=== PATIENT | male | born 1955 | race Caucasian/White ===

== ENCOUNTER 2024-10-31 16:24 | Inpatient (IN) | payer OTHER ==
[~2024-10-31] VITALS: Ht 175.3 cm; Wt 65.0 kg
--- NOTE | 2024-10-31 17:04 | ED.PDOC ---
History of Present Illness HPI Comments HPI: Initial Vitals: Temp : 98.4F BP: 153/42 HR: 71 RR: 18 O2 Sat.: 98% Past Medical History: HTN, Anemia, Primary Myelofibrosis Past Surgical History: Bone Marrow Biopsy Social History: Denies smoking, ETOH, or drug use. Medications: Iron Supplement Allergies: NKDA HPI: Poor Historian. 69-year-old male presents to emergency department for evaluation of low hemoglobin levels obtained yesterday below seven. Patient had multiple blood transfusions in the past. Patient was recently diagnosed with primary myelofibrosis. Patient takes daily iron supplements. Patient has been on iron infusion for awhile and has stopped. Patient underwent multiple procedures including bone marrow biopsy and upper and lower endoscopies to rule out any bleed. Patient consented for blood transfusion. REVIEW OF SYSTEMS: CONSTITUTIONAL: Denies acute: fever, diaphoresis, chills HEAD: Denies acute: headache, photophobia Eyes: Denies acute: Double vision, vision loss, eye pain, eye discharge. EARS: Denies acute: tinnitus, hearing loss, ear discharge, ear pain, THROAT: Denies acute: sore throat, swelling, difficulty swallowing , pain with swallowing, change in voice. NECK: Denies acute: neck pain, neck swelling, stiff neck. HEART: Denies acute : chest pain, palpitations, LUNGS: Denies acute: SOB, wheezing, cough, hemoptysis ABDOMEN: Denies acute: abdominal pain, Nausea, Vomiting, diarrhea, hematemesis, hematochezia SKIN: Denies acute: rash, redness, lesions, itchiness. EXTREMITIES: Denies acute: calf pain, numbness, tingling, weakness, denies pain in extremity. Denies acute: Low back pain. Neuro: Denies acute: focal neurological deficit, motor or sensory focal neurological deficit, tremors, seizure like activity, confusion, dizziness, change in mental status, loss of bowel or bladder function, cauda equina like symptoms. : Denies acute: dysuria, hematuria, flank pain, increase in urinary frequency. PSYCH: Denies acute: hallucination, suicidal ideation, homicidal ideation. PHYSICAL EXAM: General: no acute distress, awake and alert. Head: normocephalic, atraumatic. Neck: supple, trachea is midline, no swelling. Throat: Normal phonation. Eyes:, no erythema, no purulent discharge, no proptosis, no icterus. Heart: regular rate, regular rhythm, no significant murmur appreciated. Lungs: no apparent respiratory distress, Able to speak in full sentences. No wheezing, no rhonchi, no crackles. No stridors Clear to auscultation bilaterally. Abdomen: non tender to palpation, non distended, soft, no guarding, no rebound, + bowel sounds. Neuro: Awake, Alert, oriented to name, self, situation, follows commands GCS=15. Speech is normal. Skin: no petechia, no purpura, no cyanosis, noted-pale, not jaundice. Lower extremities: --no - Pitting edema no deformity, no focal swelling, no calf TTP. Makes eye contact. moves all four extremities. Face: no apparent facial droop. Chief Complaint: Abnormal LAB's Time Seen by MD: 16:52 Reviewed Notes: Medications, Allergies Allergies: Coded Allergies: NO KNOWN ALLERGIES (Unverified , 10/31/24) Information Source: Patient Mode of Arrival: Wheelchair Was a procedure done? Was a procedure done?: No X-Ray, Labs, Meds, VS Vital Signs Date Time Temp Pulse Resp B/P (MAP) Pulse Ox O2 Delivery O2 Flow Rate FiO2 10/31/24 16:44 98.4 71 18 153/42 (79) 98 Lab Test 10/31/24 17:52 10/31/24 16:45 Range/Units Sodium Level 144 136-145 mmol/L Potassium Level 4.0 3.5-5.1 mmol/L Chloride Level 111 H 98-107 mmol/L Carbon Dioxide Level 27 20-31 mmol/L Anion Gap 6 5-15 Blood Urea Nitrogen 22 9-23 mg/dL Creatinine 1.22 0.700-1.30 mg/dL Glomerular Filtration Rate Calc 64 >90 mL/min BUN/Creatinine Ratio 18.0 10.0-20.0 Serum Glucose 110 H 74-106 mg/dL Calcium Level 9.7 8.7-10.4 mg/dL Total Bilirubin 0.9 0.2-1.0 mg/dL Aspartate Amino Transferase (AST) 17 13-40 U/L Alanine Aminotransferase (ALT) 12 7-40 U/L Alkaline Phosphatase 187 H 46-116 U/L Troponin I High Sensitivity 4 4 </=54 ng/L Total Protein 6.2 5.7-8.2 g/dL Albumin 3.9 3.2-4.8 g/dL White Blood Count 3.8 L 4.4-10.8 10^3/uL Red Blood Count 2.39 L 4.5-5.90 10^6/uL Hemoglobin 6.7 *L 13.5-17.5 g/dL Hematocrit 19.6 L 41.0-53.0 % Mean Corpuscular Volume 82.1 80.0-100.0 fL Mean Corpuscular Hemoglobin 28.0 28.0-32.0 pg Mean Corpuscular Hemoglobin Concent 34.0 32.0-36.0 g/dL Red Cell Distribution Width 21.0 H 11.8-14.3 % Platelet Count 101 L 140-450 10^3/uL Mean Platelet Volume 8.2 6.9-10.8 fL Neutrophils (%) (Auto) 37.0-80.0 % Lymphocytes (%) (Auto) 10.0-50.0 % Monocytes (%) (Auto) 0.0-12.0 % Basophils (%) (Auto) 0.0-2.0 % Neutrophils # (Auto) 1.6-8.6 10 ^3/uL Lymphocytes # (Auto) 0.4-5.4 10 ^3/uL Monocytes # (Auto) 0-1.3 10 ^3/uL Differential Total Cells Counted 100.0 100 Neutrophils % (Manual) 56 37.0-80.0 Band Neutrophils % (Manual) 0 Lymphocytes % (Manual) 32 10.0-50.0 Monocytes % (Manual) 10 0-12 Eosinophils % (Manual) 0 0-7 Basophils % (Manual) 0 0.0-2.0 Metamyelocytes % (manual) 0 Myelocytes % (Manual) 1 Promyelocytes % (Manual) 0 Blast Cells % (Manual) 0 Nucleated Red Blood Cells 2.0 % Reactive Lymphocytes 1 Platelet Estimate Decreased Anisocytosis (manual) Slight Lactic Acid Level 1.6 0.4-2.0 mmol/L B-Type Natriuretic Peptide 108.80 0-100 pg/mL Time of 1ST Reevaluation: 17:52 Reevaluation 1ST: Unchanged Patient Education/Counseling: Diagnosis, Treatment Family Education/Counseling: No Family Present Departure 1 Departure Time of Disposition: 18:11 Impression: Primary Impression: Symptomatic anemia Additional Impression: Left against medical advice Disposition: 07 LEFT AGAINST MEDICAL ADVICE Condition: Critical Discharged With: Self, Spouse Critical Care Note Critical Care Time?: No I personally scribed for GARY MCKINLEY DO ([email or web address]) on 10/31/24 at 17:04. Electronically submitted by Raimundo Zaldivar ([email or web address]). GARY MCKINLEY DO Oct 31, 2024 17:04
[2024-10-31 17:23] LABS: Hematocrit 19.6 % (41.0-53.0); Mean Corpuscular Volume 82.1 fL (80.0-100.0); Platelet Count (auto) 101 10^3/uL (140-450); Red Blood Cells 2.39 10^6/uL (4.5-5.90); White Blood Cell 3.8 10^3/uL (4.4-10.8)
[2024-10-31 18:08] LABS: Hemoglobin 6.7 g/dL (13.5-17.5)
[2024-10-31 18:09] LABS: Band Neutrophils % (manual) 0; Basophils % (manual) 0 (0.0-2.0); Blast Cells 0; Eosinophils % (manual) 0 (0-7); Metamyelocytes % 0; Promyelocytes % 0
[2024-10-31 18:52] LABS: Lymphocytes % (manual) 32 (10.0-50.0); Monocytes % (manual) 10 (0-12); Myelocytes % 1; Reactive Lymphocytes 1
[2024-10-31 18:53] LABS: Anisocytosis Slight; Platelet Estimate Decreased
[2024-10-31 18:56] LABS: Alanine Aminotransferase 12 U/L (7-40); Albumin 3.9 g/dL (3.2-4.8); Anion Gap 6 (5-15); Aspartate Aminotransferase 17 U/L (13-40); Bilirubin, Total 0.9 mg/dL (0.2-1.0); Blood Urea Nitrogen 22 mg/dL (9-23); Calcium 9.7 mg/dL (8.7-10.4); Carbon Dioxide 27 mmol/L (20-31); Sodium 144 mmol/L (136-145); Total Protein 6.2 g/dL (5.7-8.2)
[2024-10-31 18:59] LABS: Alkaline Phosphatase 187 U/L (46-116); Chloride 111 mmol/L (98-107); Glucose 110 mg/dL (74-106)
[2024-10-31] MEDS ORDERED: NITROGLYCERIN 0.4 MG SL TAB SL PRN (19:30)
[2024-10-31] MEDS ORDERED: ONDANSETRON HCL 4 MG/2 ML VIAL IV PRN (19:30)
[2024-10-31] MEDS ORDERED: ACETAMINOPHEN 325 MG TAB PO PRN (19:30)
[2024-10-31] MEDS ORDERED: ALBUTEROL SULF 2.5 MG/0.5ML(0.5%) NEB SOLN NEB PRN (19:30)
[2024-10-31] MEDS ORDERED: TEMAZEPAM 15 MG CAP PO PRN (19:30)
[2024-10-31] MEDS ORDERED: MORPHINE SULFATE INJ 2 MG/ml SYRG IV PRN (19:30)
--- NOTE | 2024-10-31 20:01 | DVHHP2 ---
History of Present Illness Reason for Visit: Low hemoglobin History of Present Illness 69-year-old male presents for evaluation of low hemoglobin level. Patient was contacted by his primary care provided to present for further evaluation due to a low hemoglobin level. Patient reports having transfusions in the past and taking iron supplements at home. Reports mild dizziness. No chest pain or shortness for breath. No other acute complaints reported. Past Medical History Hypertension, anemia and primary myelofibrosis Past Surgical History Bone marrow biopsy Family History Noncontributory Smoke: No ALCOHOL: none Drugs: None Review of Systems Review of Systems Review of systems are currently negative otherwise addressed in HPI. Allergies: Coded Allergies: NO KNOWN ALLERGIES (Unverified , 10/31/24) Medications Current Medications Medications Dose Ordered Sig/Barron Route Start Time Stop Time Status Last Admin Dose Admin Furosemide 20 mg DAILY PO 11/01/24 10:00 UNV Albuterol 2.5 mg Q6HPRN PRN NEB 10/31/24 19:30 UNV Memantine 5 mg Q12HR PO 10/31/24 22:00 UNV Lisinopril 10 mg DAILY PO 11/01/24 10:00 UNV Atorvastatin Calcium 40 mg HS PO 10/31/24 22:00 UNV Clopidogrel Bisulfate 75 mg DAILY PO 11/01/24 10:00 UNV Temazepam 15 mg QHSP PRN PO 10/31/24 19:30 UNV Ondansetron HCl 4 mg Q4HP PRN IV 10/31/24 19:30 UNV Acetaminophen 650 mg Q6HP PRN PO 10/31/24 19:30 UNV Nitroglycerin 0.4 mg Q5MINP PRN SL 10/31/24 19:30 UNV Morphine Sulfate 2 mg Q30M PRN IV 10/31/24 19:30 UNV Exam Vital Signs Vital Signs Date Time Temp Pulse Resp B/P (MAP) Pulse Ox O2 Delivery O2 Flow Rate FiO2 10/31/24 16:44 98.4 71 18 153/42 (79) 98 Exam Gen: 69-year-old male in mild distress Skin: Warm, dry, normal color and texture, no rash. HEENT: Normocephalic atraumatic, mucous membranes moist and pink. Neck: Cervical and supraclavicular nodes normal without enlargement, trachea is midline, thyroid gland is normal without masses. Pulmonary: Clear to auscultation and percussion bilaterally. Cardiac: Regular rate and rhythm. No murmur Abdomen: Soft, nontender, nondistended, bowel sounds present all 4 quadrants, no guarding, no rigidity, no organomegaly. Extremities: No cyanosis, clubbing, no edema Neuro: Cranial nerves II through XII grossly intact, normal affect and speech, no focal motor deficits. Labs/Xrays Labs Test 10/31/24 17:52 10/31/24 16:45 Range/Units Sodium Level 144 136-145 mmol/L Potassium Level 4.0 3.5-5.1 mmol/L Chloride Level 111 H 98-107 mmol/L Carbon Dioxide Level 27 20-31 mmol/L Anion Gap 6 5-15 Blood Urea Nitrogen 22 9-23 mg/dL Creatinine 1.22 0.700-1.30 mg/dL Glomerular Filtration Rate Calc 64 >90 mL/min BUN/Creatinine Ratio 18.0 10.0-20.0 Serum Glucose 110 H 74-106 mg/dL Calcium Level 9.7 8.7-10.4 mg/dL Total Bilirubin 0.9 0.2-1.0 mg/dL Aspartate Amino Transferase (AST) 17 13-40 U/L Alanine Aminotransferase (ALT) 12 7-40 U/L Alkaline Phosphatase 187 H 46-116 U/L Troponin I High Sensitivity 4 </=54 ng/L Total Protein 6.2 5.7-8.2 g/dL Albumin 3.9 3.2-4.8 g/dL White Blood Count 3.8 L 4.4-10.8 10^3/uL Red Blood Count 2.39 L 4.5-5.90 10^6/uL Hemoglobin 6.7 *L 13.5-17.5 g/dL Hematocrit 19.6 L 41.0-53.0 % Mean Corpuscular Volume 82.1 80.0-100.0 fL Mean Corpuscular Hemoglobin 28.0 28.0-32.0 pg Mean Corpuscular Hemoglobin Concent 34.0 32.0-36.0 g/dL Red Cell Distribution Width 21.0 H 11.8-14.3 % Platelet Count 101 L 140-450 10^3/uL Mean Platelet Volume 8.2 6.9-10.8 fL Neutrophils (%) (Auto) 37.0-80.0 % Lymphocytes (%) (Auto) 10.0-50.0 % Monocytes (%) (Auto) 0.0-12.0 % Basophils (%) (Auto) 0.0-2.0 % Neutrophils # (Auto) 1.6-8.6 10 ^3/uL Lymphocytes # (Auto) 0.4-5.4 10 ^3/uL Monocytes # (Auto) 0-1.3 10 ^3/uL Differential Total Cells Counted 100.0 100 Neutrophils % (Manual) 56 37.0-80.0 Band Neutrophils % (Manual) 0 Lymphocytes % (Manual) 32 10.0-50.0 Monocytes % (Manual) 10 0-12 Eosinophils % (Manual) 0 0-7 Basophils % (Manual) 0 0.0-2.0 Metamyelocytes % (manual) 0 Myelocytes % (Manual) 1 Promyelocytes % (Manual) 0 Blast Cells % (Manual) 0 Nucleated Red Blood Cells 2.0 % Reactive Lymphocytes 1 Platelet Estimate Decreased Anisocytosis (manual) Slight Lactic Acid Level 1.6 0.4-2.0 mmol/L B-Type Natriuretic Peptide 108.80 0-100 pg/mL Assessment/Plan Assessment/Plan Assessment Symptomatic anemia Primary myelofibrosis Hypertension Plan Admit the patient to [facility] to the hospitalist 2 units of packed red cells are order for transfusion Resume home medications Stool occult pending Continue treatment per orders. Plan discussed with: Patient My Orders Orders - LOLLY RUIZ [facility] Procedure Category Date Status Time Furosemide Tablet PHA 11/01/24 Logged (Lasix Tablet) 10:00 Albuterol Medneb PHA 10/31/24 Logged (Ventolin Medneb) 19:30 Memantine Tablet PHA 10/31/24 Logged (Namenda Tablet) 22:00 Lisinopril Tablet PHA 11/01/24 Logged (Zestril Tablet) 10:00 Atorvastatin (Lipitor) PHA 10/31/24 Logged 22:00 Clopidogrel Bisulfate PHA 11/01/24 Logged (Plavix) 10:00 Stool Occult Blood LAB 10/31/24 Logged 19:18 Basic Metabolic Panel LAB 11/01/24 Verified 04:00 Admit ADMIT 10/31/24 Transmitted 19:18 Temazepam (Restoril) PHA 10/31/24 Logged 19:30 Ondansetron Hcl PHA 10/31/24 Logged (Zofran) 19:30 Complete Blood Count LAB 11/01/24 Verified 04:00 Cardiac DIET 11/01/24 Transmitted Diet-2gna,Lofat,Lochol Breakfast Condition: Stable [facility] 10/31/24 In Process 19:18 Acetaminophen Tablet [facility] 10/31/24 Logged (Tylenol Tablet) 19:30 Bedrest With Bathroom [facility] 10/31/24 In Process Privileg 19:18 Nitroglycerin [facility] 10/31/24 Logged Sublingual (Ntrostat 19:30 Morphine Sulfate [facility] 10/31/24 Logged Injection 19:30 Stat Ekg For Chest [facility] 10/31/24 In Process Pain 19:18 Notify Md Of Changes [facility] 10/31/24 In Process From Base 19:18 Moulder Operator For [facility] 10/31/24 In Process 24 Hours 19:18 Emergency Dysrhythmia [facility] 10/31/24 In Process Protocol 19:18 Rhythm Strips Once [facility] 10/31/24 In Process Every Shift 19:18 Oxygen By Nasal RT 10/31/24 Transmitted Cannula 19:18 Date of Service: Oct 31, 2024 Billing Provider: LOLLY RUIZ Common Visit Codes: [id number] INP/OBS CARE (HIGH) LOLLY RUIZ Oct 31, 2024 20:01
[2024-10-31 20:19] VITALS: BP 153/42; PULSE 71; RESP 18; TEMP 98.4; O2SAT 98
[2024-10-31] MEDS ORDERED: ATORVASTATIN 20 MG TAB PO SCH (22:00)
[2024-10-31] MEDS ORDERED: MEMANTINE HCL 5 MG TAB PO SCH (22:00)
[2024-11-01] MEDS ORDERED: LISINOPRIL 5 MG TAB PO SCH (10:00)
[2024-11-01] MEDS ORDERED: FUROSEMIDE 20 MG TAB PO SCH (10:00)
[2024-11-01] MEDS ORDERED: CLOPIDOGREL BISULFATE 75 MG TAB PO SCH (10:00)
== END 2024-10-31 19:43 | disposition left against medical advice (07) | DRG 812 ==
LOC: ER 16:24 → OVERFLOW 19:18
PROVIDERS: ADMIT Nurse Practitioner; ATTEND Nurse Practitioner
DX: D64.9 Anemia, unspecified (principal); D47.1 Chronic myeloproliferative disease; I10 Essential (primary) hypertension; Z53.29 Procedure and treatment not carried out because of patient's decision for other reasons
CPT/HCPCS: 36415; 80053; 83605; 83880; 84484; 85007; 85027; 86850; 86900; 86901; 86920; G0378

== ENCOUNTER 2025-06-09 12:33 | Inpatient (IN) | payer MEDICARE, MEDICAID ==
[~2025-06-09] VITALS: Ht 170.2 cm; Wt 54.8 kg
[2025-06-09] VITALS (9 sets, daily range): BP systolic 148–180; BP diastolic 38–63; PULSE 57–62; RESP 14–23; TEMP 97.6–98
[2025-06-09 13:49] LABS: Hematocrit 18.6 % (41.0-53.0); Mean Corpuscular Hemoglobin 26.6 pg (28.0-32.0); Mean Corpuscular Volume 78.8 fL (80.0-100.0)
--- NOTE | 2025-06-09 13:50 | ED.PDOC ---
History of Present Illness HPI Comments 69 y/o M is BIBA with daughter for c/c abnormal labs. Per daughter, patient's physician office called after patient was found with a Hgb of 6.1, today, following previous lab blood drawn, yesterday. Significant history for myelofibrosis with chronic anemia and requirement of blood transfusion. Patient has no additional acute symptoms reported. Chief Complaint: Abnormal LAB's Time Seen by MD: 13:10 Reviewed Notes: Nurses Notes, Phlebotomy Specialist Notes, Medications, Allergies Allergies: Coded Allergies: NO KNOWN ALLERGIES (Unverified , 10/31/24) Information Source: Relative (Child) Mode of Arrival: Ambulatory Severity: Moderate Timing: Hours Duration: Since onset Prehospital treatment: 12 Lead EKG, Accucheck, Supervisor In Charge Past Medical History PAST MEDICAL HISTORY: Anemia, Cancer (myelofibrosis ) All Other Systems: Reviewed and Negative (As per HPI) Physical Exam General Appearance: No Apparent Distress HEENT: Pharynx Normal Neck: Normal Inspection Respiratory: No Respiratory Distress Cardiovascular: No Edema Breast Exam: Deferred Gastrointestinal: Non Tender Genitalia: Deferred Pelvic: Deferred Rectal: Deferred Extremities: Non-tender Neurologic: No Motor Deficits Cerebellar Function: NOT DONE Reflexes: NOT DONE Skin: Normal Color Lymphatic: NOT DONE Was a procedure done? Was a procedure done?: No Differential Dx Considerations may include: anemia secondary to myelofibrosis X-Ray, Labs, Meds, VS Vital Signs Date Time Temp Pulse Resp B/P (MAP) Pulse Ox O2 Delivery O2 Flow Rate FiO2 06/09/25 17:26 97.6 57 17 161/47 97.6 06/09/25 17:08 97.8 58 14 180/63 97.8 06/09/25 17:08 97.8 58 14 180/63 (102) 97 97.8 06/09/25 15:13 98.0 71 20 145/55 (85) 98 98.0 06/09/25 14:07 Room Air* 0 21 06/09/25 12:56 98.9 72 16 124/64 (84) 96 98.9 Lab Test 06/09/25 13:32 Range/Units White Blood Count 6.8 4.4-10.8 10^3/uL Red Blood Count 2.37 L 4.5-5.90 10^6/uL Hemoglobin 6.3 *L 13.5-17.5 g/dL Hematocrit 18.6 L 41.0-53.0 % Mean Corpuscular Volume 78.8 L 80.0-100.0 fL Mean Corpuscular Hemoglobin 26.6 L 28.0-32.0 pg Mean Corpuscular Hemoglobin Concent 33.8 32.0-36.0 g/dL Red Cell Distribution Width 21.0 H 11.8-14.3 % Platelet Count 102 L 140-450 10^3/uL Mean Platelet Volume 8.2 6.9-10.8 fL Neutrophils (%) (Auto) 37.0-80.0 % Lymphocytes (%) (Auto) 10.0-50.0 % Monocytes (%) (Auto) 0.0-12.0 % Basophils (%) (Auto) 0.0-2.0 % Neutrophils # (Auto) 1.6-8.6 10 ^3/uL Lymphocytes # (Auto) 0.4-5.4 10 ^3/uL Monocytes # (Auto) 0-1.3 10 ^3/uL Differential Total Cells Counted 100.0 100 Neutrophils % (Manual) 40 37.0-80.0 Band Neutrophils % (Manual) 5 Lymphocytes % (Manual) 54 H 10.0-50.0 Monocytes % (Manual) 1 0-12 Eosinophils % (Manual) 0 0-7 Basophils % (Manual) 0 0.0-2.0 Metamyelocytes % (manual) 0 Myelocytes % (Manual) 0 Promyelocytes % (Manual) 0 Blast Cells % (Manual) 0 Nucleated Red Blood Cells % Reactive Lymphocytes 0 Platelet Estimate Decreased Sodium Level 145 136-145 mmol/L Potassium Level 4.2 3.5-5.1 mmol/L Chloride Level 113 H 98-107 mmol/L Carbon Dioxide Level 24 20-31 mmol/L Anion Gap 8 5-15 Blood Urea Nitrogen 20 9-23 mg/dL Creatinine 0.91 0.700-1.30 mg/dL Glomerular Filtration Rate Calc 91 >90 mL/min BUN/Creatinine Ratio 22.0 H 10.0-20.0 Serum Glucose 95 74-106 mg/dL Calcium Level 9.2 8.7-10.4 mg/dL Total Bilirubin 0.7 0.2-1.0 mg/dL Aspartate Amino Transferase (AST) 33 13-40 U/L Alanine Aminotransferase (ALT) 11 7-40 U/L Alkaline Phosphatase 171 H 46-116 U/L Total Protein 5.8 5.7-8.2 g/dL Albumin 3.4 3.2-4.8 g/dL Current Medications Medications (Trade) Dose Ordered Sig/Barron Route Start Time Stop Time Status Last Admin Diphenhydramine HCl (Benadryl Injection) 50 mg ONCE ONCE IV 06/09/25 16:45 06/09/25 16:46 DC 06/09/25 16:43 X-Ray, Labs, Meds, VS Comment This 69-year-old male with myelofibrosis and who received frequent blood transfusions at [facility] presents after being noted to be anemic with a hemoglobin 6.1. The patient was typed, crossed and transfused. Repeat CBC shows appropriate improvement of blood levels. Patient will be discharged home back to the care of the family. They will continue with her outpatient management of the patient's myelofibrosis. Time of 1ST Reevaluation: 13:50 Reevaluation 1ST: Unchanged Patient Education/Counseling: Treatment, Need For Follow Up Family Education/Counseling: Treatment, Need For Follow Up SEPSIS Sepsis Screen Date sepsis recognized/suspect: Jun 09, 2025 Time Sepsis recognized/suspect: 1238 Recent Procedure: No On Antibiotic Therapy: No Respiratory Rate >20: No Heart Rate >90: No Temp<36 C (96.8 F) or >38.3 C: No SBP <90 or MAP <65 mmHG: No New Acute Mental Status Change: No Is the patient on CPAP, BIPAP,: No Physician Orders Urinalysis (06/09/25 13:18) Type And Screen (06/09/25 14:10) Vital Signs Date Time Temp Pulse Resp B/P (MAP) Pulse Ox O2 Delivery O2 Flow Rate FiO2 06/09/25 17:26 97.6 57 17 161/47 97.6 06/09/25 17:08 97.8 58 14 180/63 97.8 06/09/25 17:08 97.8 58 14 180/63 (102) 97 97.8 06/09/25 15:13 98.0 71 20 145/55 (85) 98 98.0 06/09/25 14:07 Room Air* 0 21 06/09/25 12:56 98.9 72 16 124/64 (84) 96 98.9 Laboratory Tests Test 06/09/25 13:32 White Blood Count 6.8 10^3/uL (4.4-10.8) Medications Medications Dose Ordered Sig/Barron Route Start Time Stop Time Status Last Admin Dose Admin Diphenhydramine HCl 50 mg ONCE ONCE IV 06/09/25 16:45 06/09/25 16:46 DC 06/09/25 16:43 Departure 1 Departure Time of Disposition: 18:24 (Patient with symptomatic anemia likely secondary to myelofibrosis. We will admit patient for further workup and expert consultation) Impression: Primary Impression: Symptomatic anemia Additional Impression: Myelofibrosis Disposition: ADMITTED INPATIENT Admit to: Med Surg Condition: Serious Critical Care Note Critical Care Time?: No Stability Stability form required: No Heart Score Heart Score: Heart Score Response (Comments) Value History N/A 0 EKG N/A 0 Age N/A 0 Risk Factors N/A 0 Troponin N/A 0 Total 0 I personally scribed for DEV LUA MD ([email or web address]) on 06/09/25 at 13:50. Electronically submitted by Cliff Perea [email or web address]). DEV LUA MD Jun 09, 2025 13:50 RAMON SIMMONS MD Jun 09, 2025 18:26
[2025-06-09 13:59] LABS: Alanine Aminotransferase 11 U/L (7-40); Albumin 3.4 g/dL (3.2-4.8); Anion Gap 8 (5-15); BUN/Creatinine Ratio 22.0 (10.0-20.0); Blood Urea Nitrogen 20 mg/dL (9-23); Calcium 9.2 mg/dL (8.7-10.4); Carbon Dioxide 24 mmol/L (20-31); Glucose 95 mg/dL (74-106); Potassium 4.2 mmol/L (3.5-5.1); Sodium 145 mmol/L (136-145); Total Protein 5.8 g/dL (5.7-8.2)
[2025-06-09 14:00] LABS: Bilirubin, Total 0.7 mg/dL (0.2-1.0)
[2025-06-09 14:01] LABS: Alkaline Phosphatase 171 U/L (46-116); Chloride 113 mmol/L (98-107)
[2025-06-09 14:07] LABS: Hemoglobin 6.3 g/dL (13.5-17.5)
[2025-06-09 15:09] LABS: Total Cells Counted 100.0 (100)
[2025-06-09] MEDS: diphenhdrAMINE HCL 50 MG/1 ML VL IV ONE (16:43)
[2025-06-09] MEDS ORDERED: diphenhdrAMINE HCL 50 MG/1 ML VL IV PRN (18:45)
[2025-06-09] MEDS ORDERED: HYDROcodone-ACET 5/325MG TAB PO PRN (18:45)
[2025-06-09] MEDS ORDERED: ACETAMINOPHEN 325 MG TAB PO PRN (18:45)
[2025-06-09] MEDS ORDERED: ONDANSETRON HCL 4 MG/2 ML VIAL IV PRN (18:45)
[2025-06-09] MEDS ORDERED: DOCUSATE SOD 100 MG CAP PO PRN (18:45)
[2025-06-09] MEDS ORDERED: LORazepam 2MG/ML-1ML VIAL IV PRN (18:45)
[2025-06-09 18:53] LABS: Urine Protein, UAD Negative (Negative)
[2025-06-09] MEDS ORDERED: MORPHINE SULFATE INJ 2 MG/ml SYRG IV PRN (20:15)
[2025-06-09] MEDS ORDERED: NITROGLYCERIN 0.4 MG SL TAB SL PRN (20:15)
--- NOTE | 2025-06-09 20:31 | DVHHP2 ---
History of Present Illness Reason for Visit: Symptomatic anemia History of Present Illness The patient is a 69-year-old male with past medical history of chronic anemia, cancer, hyperlipidemia, and hypertension who presented to [facility] ED for evaluation of abnormal lab results. As reported by , patient receive a call from his primary care physician regarding hemoglobin of 6.1 and was instructed to go to the ED for further evaluation. Patient was seen and evaluated in the ED, laboratory data shows WBC 6.8, hemoglobin 6.3, hematocrit 18.6, platelets 102, sodium 145, potassium 4.2, BUN 20, creatinine 0.91, glucose 95, alkaline phos 171, blood pressure 161/47, heart rate 58, temperature 97.6 F, O2 saturation 98% on room air. Patient will receive 2 units of PRBC, please see medication orders section in the computer. On my assessment, at bedside, patient denied chest pain, no dizziness, no diaphoresis, no shortness of breaths, no nausea, no vomiting, no fever, no chills. Patient was admitted for further evaluation and medical management. Past Medical History Anemia, Cancer (myelofibrosis), HLD, HTN Past Surgical History Denies all surgeries Family History Reviewed, noncontributory to the management of this case. Past Social History The patient lives at home, denies smoking, alcohol or illicit drugs abuse. Review of Systems Constitutional: Yes: Weakness; No: Fever, Chills, Sweats, Malaise, Other Eyes: No: Pain, Vision change, Conjunctivae inflammation, Eyelid inflammation, Other, Redness ENT: No: Ear pain, Ear discharge, Nose pain, Nose discharge, Nose congestion, Mouth pain, Mouth swelling, Throat pain, Throat swelling, Other Respiratory: No: Cough, Dry, Shortness of breath, SOB with excertion, Wheezing, Hemoptysis, Pleuritic Pain, Sputum, Wheezing, Other Cardiovascular: No: Chest Pain, Palpitations, Orthopnea, Paroxysmal Noc. Dyspnea, Edema, Lt Headedness, Other Gastrointestinal: No: Nausea, Vomiting, Abdominal Pain, Diarrhea, Constipation, Melena, Hematochezia, Other Genitourinary: No Dysuria, No Frequency, No Incontinence, No Hematuria, No Retention, No Other Musculoskeletal: No: other, neck pain, shoulder pain, arm pain, back pain, hand pain, leg pain, foot pain Skin: No: Rash, Lesions, Jaundice, Bruising, Other Neurological: No: Weakness, Numbness, Incoordination, Change in speech, Confusion, Seizures, Other Allergies: Coded Allergies: NO KNOWN ALLERGIES (Unverified , 10/31/24) Medications Current Medications Medications Dose Ordered Sig/Barron Route Start Time Stop Time Status Last Admin Dose Admin Amlodipine Besylate 5 mg DAILY PO 06/10/25 10:00 Folic Acid 1 mg DAILY PO 06/10/25 10:00 Atorvastatin Calcium 40 mg HS PO 06/09/25 22:00 Clopidogrel Bisulfate 75 mg DAILY PO 06/10/25 10:00 Memantine 5 mg DAILY PO 06/10/25 10:00 Lorazepam 0.5 mg Q8HP PRN IV 06/09/25 18:45 Diphenhydramine HCl 25 mg Q4HP PRN IV 06/09/25 18:45 Sodium Chloride 10 ml Q8HR IV 06/09/25 22:00 Acetaminophen/ Hydrocodone Bitart 1 tab Q4HP PRN PO 06/09/25 18:45 Ondansetron HCl 4 mg Q4HP PRN IV 06/09/25 18:45 Docusate Sodium 100 mg BIDPRN PRN PO 06/09/25 18:45 Acetaminophen 650 mg Q6HP PRN PO 06/09/25 18:45 Exam Vital Signs Vital Signs Date Time Temp Pulse Resp B/P (MAP) Pulse Ox O2 Delivery O2 Flow Rate FiO2 06/09/25 20:00 97.7 60 17 165/50 97.7 06/09/25 19:00 98 06/09/25 14:07 Room Air* 0 21 General Appearance: Alert, Cooperative, No acute distress, Other (Oriented x2) HEENT: Atraumatic, PERRLA, EOMI, Mucous membr. moist/pink Respiratory: Clear to auscultation, Normal air movement Cardiovascular: Regular rate, Normal S1, Normal S2, No murmurs Abdominal: Normal bowel sounds, Soft, No tenderness, No hepatospenomegaly, No masses Extremities: No clubbing, No cyanosis, No edema, Normal pulses, No tenderness/swelling Skin: No rashes, No breakdown, No significant lesion Neuro: Normal speech, Normal tone, Sensation intact, Cranial nerves 3-12 NL, Reflexes 2+, Other (Generalized weakness) Psych/Mental Status: Mental status NL, Mood NL Labs/Xrays Labs Test 06/09/25 18:00 06/09/25 13:32 Range/Units Urine Color Colorless Yellow Urine Clarity Clear Clear Urine pH 7.0 5.0-9.0 Urine Specific [place] 1.012 1.001-1.035 Urine Protein Negative Negative Urine Ketones Negative Negative Urine Blood Negative Negative /uL Urine Nitrite 2+ H Negative Urine Bilirubin Negative Negative Urine Urobilinogen Normal Negative mg/dL Urine Leukocyte Esterase Negative Negative /uL Urine RBC <1 0 - 3 /hpf Urine Microscopic WBC 1 0-3 /HPF Urine Squamous Epithelial Cells Few <5 /hpf Urine Bacteria Few H None Seen /hpf Urine Glucose Normal Normal mg/dL White Blood Count 6.8 4.4-10.8 10^3/uL Red Blood Count 2.37 L 4.5-5.90 10^6/uL Hemoglobin 6.3 *L 13.5-17.5 g/dL Hematocrit 18.6 L 41.0-53.0 % Mean Corpuscular Volume 78.8 L 80.0-100.0 fL Mean Corpuscular Hemoglobin 26.6 L 28.0-32.0 pg Mean Corpuscular Hemoglobin Concent 33.8 32.0-36.0 g/dL Red Cell Distribution Width 21.0 H 11.8-14.3 % Platelet Count 102 L 140-450 10^3/uL Mean Platelet Volume 8.2 6.9-10.8 fL Neutrophils (%) (Auto) 37.0-80.0 % Lymphocytes (%) (Auto) 10.0-50.0 % Monocytes (%) (Auto) 0.0-12.0 % Basophils (%) (Auto) 0.0-2.0 % Neutrophils # (Auto) 1.6-8.6 10 ^3/uL Lymphocytes # (Auto) 0.4-5.4 10 ^3/uL Monocytes # (Auto) 0-1.3 10 ^3/uL Differential Total Cells Counted 100.0 100 Neutrophils % (Manual) 40 37.0-80.0 Band Neutrophils % (Manual) 5 Lymphocytes % (Manual) 54 H 10.0-50.0 Monocytes % (Manual) 1 0-12 Eosinophils % (Manual) 0 0-7 Basophils % (Manual) 0 0.0-2.0 Metamyelocytes % (manual) 0 Myelocytes % (Manual) 0 Promyelocytes % (Manual) 0 Blast Cells % (Manual) 0 Nucleated Red Blood Cells % Reactive Lymphocytes 0 Platelet Estimate Decreased Sodium Level 145 136-145 mmol/L Potassium Level 4.2 3.5-5.1 mmol/L Chloride Level 113 H 98-107 mmol/L Carbon Dioxide Level 24 20-31 mmol/L Anion Gap 8 5-15 Blood Urea Nitrogen 20 9-23 mg/dL Creatinine 0.91 0.700-1.30 mg/dL Glomerular Filtration Rate Calc 91 >90 mL/min BUN/Creatinine Ratio 22.0 H 10.0-20.0 Serum Glucose 95 74-106 mg/dL Calcium Level 9.2 8.7-10.4 mg/dL Total Bilirubin 0.7 0.2-1.0 mg/dL Aspartate Amino Transferase (AST) 33 13-40 U/L Alanine Aminotransferase (ALT) 11 7-40 U/L Alkaline Phosphatase 171 H 46-116 U/L Total Protein 5.8 5.7-8.2 g/dL Albumin 3.4 3.2-4.8 g/dL SEPSIS Sepsis Screen Date sepsis recognized/suspect: Jun 09, 2025 Time Sepsis recognized/suspect: 1237 Recent Procedure: No On Antibiotic Therapy: No Respiratory Rate >20: No Heart Rate >90: No Temp<36 C (96.8 F) or >38.3 C: No SBP <90 or MAP <65 mmHG: No New Acute Mental Status Change: No Is the patient on CPAP, BIPAP,: No Physician Orders Type And Screen (06/09/25 14:10) Amlodipine Tablet (Norvasc Tablet) (06/10/25 10:00) Folic Acid Tablet (06/10/25 10:00) Atorvastatin (Lipitor) (06/09/25 22:00) Clopidogrel Bisulfate (Plavix) (06/10/25 10:00) Memantine Tablet (Namenda Tablet) (06/10/25 10:00) Lorazepam 2mg/Ml Inj (Ativan Inj) (06/09/25 18:45) Diphenhdramine Injection (Benadryl Injec (06/09/25 18:45) Allergies (06/09/25 18:40) Code Status (06/09/25 18:40) Sodium Chloride Lock (Saline Lock Ns) (06/09/25 22:00) Oxygen Per Hour (06/09/25 18:40) Hydrocodone-Acet 5/325mg Tab ([place] 5/32 (06/09/25 18:45) Ondansetron Hcl (Zofran) (06/09/25 18:45) Docusate Sodium Capsule (Colace Capsule) (06/09/25 18:45) Complete Blood Count (06/10/25 04:00) Comprehensive Metabolic Panel (06/10/25 04:00) Cardiac Diet-2gna,Lofat,Lochol (06/10/25 Breakfast) Condition: Serious (06/09/25 18:40) Acetaminophen Tablet (Tylenol Tablet) (06/09/25 18:45) Bedrest With Bathroom Privileg (06/09/25 18:40) Sequential Compression Device (06/09/25 ) Admit (06/09/25 20:14) Nitroglycerin Sublingual (Ntrostat Subli (06/09/25 20:15) Morphine Sulfate Injection (06/09/25 20:15) Stat Ekg For Chest Pain (06/09/25 20:14) Notify Md Of Changes From Base (06/09/25 20:14) Bulk Plant Operator For 24 Hours (06/09/25 20:14) Emergency Dysrhythmia Protocol (06/09/25 20:14) Rhythm Strips Once Every Shift (06/09/25 20:14) Oxygen By Nasal Cannula (06/09/25 20:14) Vital Signs Date Time Temp Pulse Resp B/P (MAP) Pulse Ox O2 Delivery O2 Flow Rate FiO2 06/09/25 20:00 97.7 60 17 165/50 97.7 06/09/25 19:00 61 21 154/53 (86) 98 06/09/25 18:00 61 15 145/93 (110) 100 06/09/25 17:26 97.6 57 17 161/47 (85) 100 97.6 06/09/25 17:26 97.6 57 17 161/47 97.6 06/09/25 17:08 97.8 58 14 180/63 97.8 06/09/25 17:08 97.8 58 14 180/63 (102) 97 97.8 06/09/25 15:13 98.0 71 20 145/55 (85) 98 98.0 06/09/25 14:07 Room Air* 0 21 06/09/25 12:56 98.9 72 16 124/64 (84) 96 98.9 Laboratory Tests Test 06/09/25 13:32 White Blood Count 6.8 10^3/uL (4.4-10.8) Medications Medications Dose Ordered Sig/Barron Route Start Time Stop Time Status Last Admin Dose Admin Diphenhydramine HCl 50 mg ONCE ONCE IV 06/09/25 16:45 06/09/25 16:46 DC 06/09/25 16:43 50 MG Assessment/Plan Assessment/Plan Symptomatic anemia Myelofibrosis Hypertension Generalized weakness Plan 1. Admit to telemetry unit 2. Breathing treatment 3. Pain control management 4. Management of fluids and electrolytes 5. Consultation for hospitalist 6. Diagnostic tests chest x-ray 7. DVT prophylaxis-on SCDs 8. Repeat labs CBC, CMP in a.m. 9. Continue with current medical management 10. Treatment plan discussed with patient/ and RN. Patient/ verbalized understanding. Plan discussed with: Patient, Other (RN) My Orders Orders - JUAN VAZQUEZ DNP Procedure Category Date Status Time Amlodipine Tablet PHA 06/10/25 In Process (Norvasc Tablet) 10:00 Folic Acid Tablet PHA 06/10/25 In Process 10:00 Atorvastatin (Lipitor) PHA 06/09/25 In Process 22:00 Clopidogrel Bisulfate PHA 06/10/25 In Process (Plavix) 10:00 Memantine Tablet PHA 06/10/25 In Process (Namenda Tablet) 10:00 Lorazepam 2mg/Ml Inj PHA 06/09/25 In Process (Ativan Inj) 18:45 Diphenhdramine PHA 06/09/25 In Process Injection (Benadryl 18:45 Allergies RONAN 06/09/25 In Process 18:40 Code Status CODE 06/09/25 Transmitted 18:40 Sodium Chloride Lock PHA 06/09/25 In Process (Saline Lock Ns) 22:00 Oxygen Per Hour RT 06/09/25 Transmitted 18:40 Hydrocodone-Acet PHA 06/09/25 In Process 5/325mg Tab ([place] 18:45 Ondansetron Hcl PHA 06/09/25 In Process (Zofran) 18:45 Docusate Sodium PHA 06/09/25 In Process Capsule (Colace 18:45 Complete Blood Count LAB 06/10/25 Verified 04:00 Comprehensive LAB 06/10/25 Verified Metabolic Panel 04:00 Cardiac DIET 06/10/25 Transmitted Diet-2gna,Lofat,Lochol Breakfast Condition: Serious [facility] 06/09/25 In Process 18:40 Acetaminophen Tablet [facility] 06/09/25 In Process (Tylenol Tablet) 18:45 Bedrest With Bathroom [facility] 06/09/25 In Process Privileg 18:40 Sequential [facility] 06/09/25 In Process Compression Device Admit ADMIT 06/09/25 Verified 20:14 Nitroglycerin [facility] 06/09/25 Verified Sublingual (Ntrostat 20:15 Morphine Sulfate [facility] 06/09/25 Verified Injection 20:15 Stat Ekg For Chest [facility] 06/09/25 Verified Pain 20:14 Notify Md Of Changes [facility] 06/09/25 Verified From Base 20:14 Bulk Plant Operator For [facility] 06/09/25 Verified 24 Hours 20:14 Emergency Dysrhythmia [facility] 06/09/25 Verified Protocol 20:14 Rhythm Strips Once [facility] 06/09/25 Verified Every Shift 20:14 Oxygen By Nasal RT 06/09/25 Verified Cannula 20:14 Problem List: (1) Symptomatic anemia (2) Myelofibrosis (3) Hypertension (4) Generalized weakness Date of Service: Jun 09, 2025 Billing Provider: JUAN VAZQUEZ DNP Common Visit Codes: [id number] INP/OBS CARE (HIGH) JUAN VAZQUEZ DNP Jun 09, 2025 20:31
[2025-06-09] MEDS: ATORVASTATIN 20 MG TAB PO SCH (22:00)
[2025-06-09] MEDS: SODIUM CHLOR 0.9% PF (SALINE LOCK) 10ML VIAL/SYR IV SCH (22:20)
[2025-06-10] VITALS (7 sets, daily range): BP systolic 141–175; BP diastolic 45–76; PULSE 57–63; RESP 15–18; TEMP 97.5–98.2; O2SAT 92–100
[2025-06-10] MEDS: hydrALAZINE HCL 20 MG/ML VL IV PRN (05:00)
[2025-06-10] MEDS: MEMANTINE HCL 5 MG TAB PO SCH (09:25)
[2025-06-10] MEDS: FOLIC ACID 1 MG TAB PO SCH (09:25)
[2025-06-10] MEDS: CLOPIDOGREL BISULFATE 75 MG TAB PO SCH (09:25)
[2025-06-10 11:06] LABS: Hematocrit 30.1 % (41.0-53.0); Hemoglobin 10.2 g/dL (13.5-17.5)
[2025-06-10] MEDS ORDERED: TEMAZEPAM 15 MG CAP PO PRN (14:45)
--- NOTE | 2025-06-10 14:58 | DVHPN2 ---
Subjective The patient seen and examined at bedside. No complaint today. Status post blood transfusions. Reviewed: Care Plan, H&P, Labs, Medications, Previous Orders, Radiology Changes from previous H/P or p: No Changes Eyes: No Pain, No Vision change, No Conjunctivae inflammation, No Eyelid inflammation, No Other, No Redness ENT: No Ear pain, No Ear discharge, No Nose pain, No Nose discharge, No Nose congestion, No Mouth pain, No Mouth swelling, No Throat pain, No Throat swelling, No Other Cardiovascular: No Chest Pain, No Palpitations, No Orthopnea, No Paroxysmal Noc. Dyspnea, No Edema, No Lt Headedness, No Other Respiratory: No Cough, No Dry, No Shortness of breath, No SOB with excertion, No Wheezing, No Hemoptysis, No Pleuritic Pain, No Sputum, No Other Gastrointestinal: No Nausea, No Vomiting, No Abdominal Pain, No Diarrhea, No Constipation, No Melena, No Hematochezia, No Other Genitourinary: No Dysuria, No Frequency, No Incontinence, No Hematuria, No Retention, No Other Musculoskeletal: No other, No neck pain, No shoulder pain, No arm pain, No back pain, No hand pain, No leg pain, No foot pain Skin: No Rash, No Lesions, No Jaundice, No Bruising, No Other Objective Vitals Vital Signs Date Time Temp Pulse Resp B/P (MAP) Pulse Ox O2 Delivery O2 Flow Rate FiO2 06/10/25 13:00 97.5 59 15 141/64 (89) 98 97.5 06/10/25 08:00 Room Air* 0 21 Intake/Output Intake and Output 06/10/25 07:00 Intake Total 1950 ml Output Total 300 ml Balance 1650 ml Intake Oral 150 ml Tube Feeding 0 ml Blood Product 1200 ml Other 600 ml Output Urine Total 300 ml Stool Total 0 ml Urine/Stool Mix 0 ml Gastric Drainage Total 0 ml Emesis 0 ml Chest Tube Drainage Total 0 ml Drainage Total 0 ml Other 0 ml # Voids 2 # Bowel Movements 1 General Appearance: Alert, Cooperative, No acute distress HEENT: Atraumatic, PERRLA, EOMI, Mucous membr. moist/pink Neck: Supple Lungs: Clear to auscultation, Normal air movement Cardiovascular: Regular rate, Normal S1, Normal S2, No murmurs, Gallops, Rubs Abdomen: Normal bowel sounds, Soft, No tenderness Neuro: Cranial nerves 3-12 NL Psych/Mental Status: Mental status NL Medications Current Medications Medications Dose Ordered Sig/Barron Route Start Time Stop Time Status Last Admin Dose Admin Amlodipine Besylate 5 mg DAILY PO 06/10/25 10:00 06/10/25 09:25 5 MG Folic Acid 1 mg DAILY PO 06/10/25 10:00 06/10/25 09:25 1 MG Atorvastatin Calcium 40 mg HS PO 06/09/25 22:00 Clopidogrel Bisulfate 75 mg DAILY PO 06/10/25 10:00 06/10/25 09:25 75 MG Memantine 5 mg DAILY PO 06/10/25 10:00 06/10/25 09:25 5 MG Lorazepam 0.5 mg Q8HP PRN IV 06/09/25 18:45 Diphenhydramine HCl 25 mg Q4HP PRN IV 06/09/25 18:45 Sodium Chloride 10 ml Q8HR IV 06/09/25 22:00 06/10/25 06:00 10 ML Acetaminophen/ Hydrocodone Bitart 1 tab Q4HP PRN PO 06/09/25 18:45 Ondansetron HCl 4 mg Q4HP PRN IV 06/09/25 18:45 Docusate Sodium 100 mg BIDPRN PRN PO 06/09/25 18:45 Acetaminophen 650 mg Q6HP PRN PO 06/09/25 18:45 Nitroglycerin 0.4 mg Q5MINP PRN SL 06/09/25 20:15 Morphine Sulfate 2 mg Q30M PRN IV 06/09/25 20:15 Hydralazine HCl 10 mg Q6HP PRN IV 06/10/25 05:00 06/10/25 05:00 10 MG Temazepam 15 mg HSPRN PRN PO 06/10/25 14:45 Laboratory Results Laboratory Tests 06/09/25 13:32 06/10/25 10:53 Urinalysis Test 06/09/25 18:00 Urine Color Colorless (Yellow) Urine Clarity Clear (Clear) Urine pH 7.0 (5.0-9.0) Urine Specific [place] 1.012 (1.001-1.035) Urine Protein Negative (Negative) Urine Ketones Negative (Negative) Urine Blood Negative /uL (Negative) Urine Nitrite 2+ (Negative) H Urine Bilirubin Negative (Negative) Urine Urobilinogen Normal mg/dL (Negative) Urine Leukocyte Esterase Negative /uL (Negative) Urine RBC <1 /hpf (0 - 3) Urine Microscopic WBC 1 /HPF (0-3) Urine Squamous Epithelial Cells Few /hpf (<5) Urine Bacteria Few /hpf (None Seen) H Urine Glucose Normal mg/dL (Normal) Microbiology Microbiology Date/Time Source Procedure Growth Status 06/10/25 03:41 Nose MRSA Screen - Final Complete Labs and/or images reviewed: Labs reviewed by me Assessment/Plan Assessment/Plan Symptomatic anemia Myelofibrosis Hypertension Generalized weakness Continuing current management. We will order repeat lab in a.m.. If hemoglobin stable and above seven anticipate to discharge. Continuing hypertensive medication Encouraged the patient to be out of bed and ambulate This medical document was created using an electronic medical record system with [employer] direct computerized dictation system. Although this document has been carefully reviewed, there may still be some phonetic and typographical errors. These areas are purely typographical due to imperfections of the software programs, and do not reflect any compromise in the patient's medical care. Plan discussed with: Patient My Orders Orders - BAHMAN ALFARO MD Procedure Category Date Status Time Complete Blood Count LAB 06/11/25 Verified 05:00 Basic Metabolic Panel LAB 06/11/25 Verified 05:00 Temazepam (Restoril) PHA 06/10/25 In Process 14:45 Date of Service: Jun 12, 2025 Billing Provider: BAHMAN ALFARO MD Common Visit Codes: [id number] INP/OBS CARE(HIGH) BAHMAN ALFARO MD Jun 10, 2025 14:58
--- NOTE | 2025-06-11 23:14 | DVHDS2 ---
Discharge Summary Date of Admission Jun 09, 2025 at 20:14 Date of Discharge: Jun 12, 2025 Admitting Diagnosis Symptomatic anemia Myelofibrosis Hypertension Generalized weakness Labs/Diagnostic Data: Laboratory Results Test 06/10/25 10:53 06/09/25 18:00 06/09/25 13:32 Hemoglobin 10.2 g/dL (13.5-17.5) Hematocrit 30.1 % (41.0-53.0) Urine Color Colorless (Yellow) Urine Clarity Clear (Clear) Urine pH 7.0 (5.0-9.0) Urine Specific [place] 1.012 (1.001-1.035) Urine Protein Negative (Negative) Urine Ketones Negative (Negative) Urine Blood Negative /uL (Negative) Urine Nitrite 2+ (Negative) Urine Bilirubin Negative (Negative) Urine Urobilinogen Normal mg/dL (Negative) Urine Leukocyte Esterase Negative /uL (Negative) Urine RBC <1 /hpf (0 - 3) Urine Microscopic WBC 1 /HPF (0-3) Urine Squamous Epithelial Cells Few /hpf (<5) Urine Bacteria Few /hpf (None Seen) Urine Glucose Normal mg/dL (Normal) White Blood Count 6.8 10^3/uL (4.4-10.8) Red Blood Count 2.37 10^6/uL (4.5-5.90) Mean Corpuscular Volume 78.8 fL (80.0-100.0) Mean Corpuscular Hemoglobin 26.6 pg (28.0-32.0) Mean Corpuscular Hemoglobin Concent 33.8 g/dL (32.0-36.0) Red Cell Distribution Width 21.0 % (11.8-14.3) Platelet Count 102 10^3/uL (140-450) Mean Platelet Volume 8.2 fL (6.9-10.8) Neutrophils (%) (Auto) % (37.0-80.0) Lymphocytes (%) (Auto) % (10.0-50.0) Monocytes (%) (Auto) % (0.0-12.0) Basophils (%) (Auto) % (0.0-2.0) Neutrophils # (Auto) 10 ^3/uL (1.6-8.6) Lymphocytes # (Auto) 10 ^3/uL (0.4-5.4) Monocytes # (Auto) 10 ^3/uL (0-1.3) Differential Total Cells Counted 100.0 (100) Neutrophils % (Manual) 40 (37.0-80.0) Band Neutrophils % (Manual) 5 Lymphocytes % (Manual) 54 (10.0-50.0) Monocytes % (Manual) 1 (0-12) Eosinophils % (Manual) 0 (0-7) Basophils % (Manual) 0 (0.0-2.0) Metamyelocytes % (manual) 0 Myelocytes % (Manual) 0 Promyelocytes % (Manual) 0 Blast Cells % (Manual) 0 Nucleated Red Blood Cells % Reactive Lymphocytes 0 Platelet Estimate Decreased Sodium Level 145 mmol/L (136-145) Potassium Level 4.2 mmol/L (3.5-5.1) Chloride Level 113 mmol/L (98-107) Carbon Dioxide Level 24 mmol/L (20-31) Anion Gap 8 (5-15) Blood Urea Nitrogen 20 mg/dL (9-23) Creatinine 0.91 mg/dL (0.700-1.30) Glomerular Filtration Rate Calc 91 mL/min (>90) BUN/Creatinine Ratio 22.0 (10.0-20.0) Serum Glucose 95 mg/dL (74-106) Calcium Level 9.2 mg/dL (8.7-10.4) Total Bilirubin 0.7 mg/dL (0.2-1.0) Aspartate Amino Transferase (AST) 33 U/L (13-40) Alanine Aminotransferase (ALT) 11 U/L (7-40) Alkaline Phosphatase 171 U/L (46-116) Total Protein 5.8 g/dL (5.7-8.2) Albumin 3.4 g/dL (3.2-4.8) Other Laboratory Tests 06/10/25 10:53 06/09/25 13:32 Brief Hx & Hospital Course: . This is a 69 years old male with past medical history chronic anemia, myelofibrosis, hyperlipidemia, hypertension came to [facility] to evaluate for abnormal lab results. Apparently the patient received a call from his primary care physician regarding to hemoglobin of 6.1. The patient was instructed to go to the emergency department for further evaluation. In the ER, the lab showed patient had hemoglobin of 6.3 and hematocrit of 18.6. The patient received two packed red blood cell transfusion after type and cross. Today his hemoglobin is stable at 10.2 so I am going to discharge him home. Advised him to follow up with primary care physician 1-2 weeks. Activity as tolerated. Diet per home diet. Follow up with car clerk pullman/ oncologist per schedule. Physical exam: HEENT: Normocephalic atraumatic pupils equal react to light and accommodation. Extraocular muscles intact, conjunctiva pink, oropharynx moist, no thrush, no exudate. Lymphatic: No lymphadenopathy Cardiovascular exam: S1, S2 was heard. No murmurs, rubs, gallops Lung: Clear on auscultation bilaterally, no wheeze, rale, rhonchi. GI: Abdominal soft, nondistended, nontenderness, positive bowel sounds. Extremity: No crepitus, cyanosis, edema. Pedal pulses present bilateral. Full range of motion. Skin: Normal turgor, no rash. Psych: Alert, oriented x3. Neurology: No focal deficits, cranial nerve II to XII grossly intact. This medical document was created using an electronic medical record system with [employer] direct computerized dictation system. Although this document has been carefully reviewed, there may still be some phonetic and typographical errors. These areas are purely typographical due to imperfections of the software programs, and do not reflect any compromise in the patient's medical care. Condition at Discharge: Stable Final Diagnosis/Problems List Symptomatic anemia Myelofibrosis Hypertension Generalized weakness Discharge Disposition: Home Discharge Instruct/Medications Unable to Obtain Active Prescriptions or Reported Meds Discharge Statement: "Patient was advised to return to the ER or call 911 if any headaches, dizziness, shortness of breath, chest pain, abdominal pain, bleeding, fevers, or worsening of medical condition. Patient was counseled about treatment plan, medications, possible side effects, patientverbalized understanding. All questions were answered to the best of my ability. This discharge took greater then 30 minutes in planning, reviewing documentation, counseling the patient, and discussing with other team members." ASSESSMENT ASSESSMENT Assessment Date of Service: Jun 11, 2025 Billing Provider: BAHMAN ALFARO MD Common Visit Codes: [id number] DISCH DAY >30min BAHMAN ALFARO MD Jun 11, 2025 23:14
== END 2025-06-10 16:12 | disposition left against medical advice (07) | DRG 812 ==
LOC: EDBD 12:33 → ER 12:33 → OVERFLOW 20:14 → TELE-CENTR 23:58
PROVIDERS: ADMIT Nurse Practitioner Family; ATTEND Nurse Practitioner Family
PROC: 30233N1 Transfusion of Nonautologous Red Blood Cells into Peripheral Vein, Percutaneous Approach (ICD-10-PCS; principal; 2025-06-09)
DX: D62 Acute posthemorrhagic anemia (principal); D75.81 Myelofibrosis; I10 Essential (primary) hypertension; Z53.29 Procedure and treatment not carried out because of patient's decision for other reasons; E78.5 Hyperlipidemia, unspecified; Z79.899 Other long term (current) drug therapy
CPT/HCPCS: 36415; 80053; 81001; 85007; 85014; 85018; 85027; 86850; 86900; 86901; 86920; 87081; 96374; G0378

== ENCOUNTER 2025-06-22 13:54 | Inpatient (IN) | payer MEDICARE, MEDICAID ==
[~2025-06-22] VITALS: Ht 172.7 cm; Wt 106.7 kg
--- NOTE | 2025-06-22 14:23 | ED.PDOC ---
History of Present Illness HPI Comments This is a 69 year old male EVELIA presenting to the ED with chief complaint of abnormal labs. EMS reports patient is coming from [facility] where he had labs drawn on Wednesday. EMS relays that the results came back today showing a hemoglobin level of 7.0. EMS states patient has been noted to be pale recently, but there is no obvious active bleeding noted at this time. EMS notes patient is normally A/O x1 due to history of dementia according to . No further symptoms or concerns at this time. Chief Complaint: Abnormal LAB's Time Seen by MD: 14:23 Reviewed Notes: Nurses Notes, Ribbon Cutter Notes, Medications, Allergies Allergies: Coded Allergies: Morphine (Verified Allergy, Unknown, 06/22/25) Home Meds Unable to Obtain Active Prescriptions or Reported Meds Information Source: Patient, Emergency Med Personnel Mode of Arrival: EMS Severity: Moderate Timing: Days Duration: Since onset Prehospital treatment: None Medication Refill: For: Other (Abnormal labs) Past Medical History PAST MEDICAL HISTORY: Anemia, Cancer, Dementia Surgical History: Unknown Family History Family History: Reviewed,noncontributory to illness Social History Smoker: Non-Smoker Alcohol: Denies ETOH Use Drugs: Denies Drug Use Lives In: Detention Constitutional: denies: chills, diaphoresis, fatigue, fever, malaise, sweats, weakness, others EENTM: denies: blurred vision, double vision, ear bleeding, ear discharge, ear drainage, ear pain, ear ringing, eye pain, eye redness, hearing loss, mouth pain, mouth swelling, nasal discharge, nose bleeding, nose congestion, nose pain, photophobia, tearing, throat pain, throat swelling, voice changes, others Respiratory: denies: cough, hemoptysis, orthopnea, SOB at rest, shortness of breath, SOB with excertion, stridor, wheezing, others Cardiovascular: denies: chest pain, dizzy spells, diaphoresis, Dyspnea on exertion, edema, irregular heart beat, left arm pain, lightheadedness, palpitations, PND, syncope, others Gastrointestinal: denies: abdomen distended, abdominal pain, blood streaked bowels, constipated, diarrhea, dysphagia, difficulty swallowing, hematemesis, melena, nausea, poor appetite, poor fluid intake, rectal bleeding, rectal pain, vomiting, others Genitourinary: denies: burning, dysuria, flank pain, frequency, hematuria, incontinence, penile discharge, penile sore, pain, testicle pain, testicle swelling, urgency, others Neurological: denies: dizziness, fainting, headache, left sided numbness, left sided weakness, numbness, paresthesia, pre-existing deficit, right sided numbness, right sided weakness, seizure, speech problems, tingling, tremors, weakness, others Musculoskeletal: denies: back pain, gout, joint pain, joint swelling, muscle pain, muscle stiffness, neck pain, others Integumetry: reports: change in color (pale); denies: bruises, change in hair/nails, dryness, laceration, lesions, lumps, rash, wounds, others Allergic/Immunocompromised: denies: Difficulty Healing, Frequent Infections, Hives, Itching, others Hematologic/Lymphatic: denies: anemia, blood clots, easy bleeding, easy bruising, swollen glands, others Endocrine: denies: excessive hunger, excessive sweating, excessive thirst, excessive urination, flushing, intolerance to cold, intolerance to heat, unexplained weight gain, unexplained weight loss, others Psychiatric: denies: anxiety, bipolar disorder, depression, hopeless, panic disorder, schizophrenia, sleepless, suicidal, others All Other Systems: Reviewed and Negative Physical Exam General Appearance: Moderate Distress, Normal HEENT: Normal ENT Inspection, Pharynx Normal, TMs Normal Neck: Full Range of Motion, Non-Tender, Normal, Normal Inspection Respiratory: Chest Non-Tender, Lungs Clear, No Accessory Muscle Use, No Respiratory Distress, Normal Breath Sounds Cardiovascular: No Edema, No JVD, No Murmur, No Gallop, Normal Peripheral Pulses, Regular Rate/Rhythm Breast Exam: Deferred Gastrointestinal: No Organomegaly, Non Tender, No Pulsatile Mass, Normal Bowel Sounds, Soft Genitalia: Deferred Pelvic: Deferred Rectal: Deferred Extremities: No calf tenderness, Normal capillary refill, Normal inspection, Normal range of motion, Non-tender, No pedal edema Musculoskeletal : Apperance: Normal Neurologic: Alert, branch account executive II-XII nml as Tested, No Motor Deficits, Normal Affect, Normal Mood, No Sensory Deficits Cerebellar Function: NOT DONE Reflexes: NOT DONE Skin: Dry, Pallor, Warm Peripheral Pulses: 3+ Radial (R), 3+ Radial (L) Lymphatic: No Adenopathy Was a procedure done? Was a procedure done?: No Differential Dx Considerations may include: Anemia X-Ray, Labs, Meds, VS Vital Signs Date Time Temp Pulse Resp B/P (MAP) Pulse Ox O2 Delivery O2 Flow Rate FiO2 06/22/25 15:00 71 06/22/25 14:57 98.0 77 25 159/69 (99) 99 98.0 06/22/25 14:50 75 20 159/69 (99) 98 06/22/25 14:50 75 20 98 Room Air* 0 21 06/22/25 13:58 98.3 67 18 132/63 96 98.3 Lab Test 06/22/25 15:05 Range/Units White Blood Count 7.2 4.4-10.8 10^3/uL Red Blood Count 2.97 L 4.5-5.90 10^6/uL Hemoglobin 7.8 L 13.5-17.5 g/dL Hematocrit 23.5 L 41.0-53.0 % Mean Corpuscular Volume 79.2 L 80.0-100.0 fL Mean Corpuscular Hemoglobin 26.2 L 28.0-32.0 pg Mean Corpuscular Hemoglobin Concent 33.0 32.0-36.0 g/dL Red Cell Distribution Width 20.5 H 11.8-14.3 % Platelet Count 101 L 140-450 10^3/uL Mean Platelet Volume 8.1 6.9-10.8 fL Neutrophils (%) (Auto) 37.0-80.0 % Lymphocytes (%) (Auto) 10.0-50.0 % Monocytes (%) (Auto) 0.0-12.0 % Basophils (%) (Auto) 0.0-2.0 % Neutrophils # (Auto) 1.6-8.6 10 ^3/uL Lymphocytes # (Auto) 0.4-5.4 10 ^3/uL Monocytes # (Auto) 0-1.3 10 ^3/uL Differential Total Cells Counted Pending Neutrophils % (Manual) Pending Band Neutrophils % (Manual) Pending Lymphocytes % (Manual) Pending Monocytes % (Manual) Pending Eosinophils % (Manual) Pending Basophils % (Manual) Pending Metamyelocytes % (manual) Pending Myelocytes % (Manual) Pending Promyelocytes % (Manual) Pending Blast Cells % (Manual) Pending Reactive Lymphocytes Pending Platelet Estimate Pending Sodium Level 146 H 136-145 mmol/L Potassium Level 4.0 3.5-5.1 mmol/L Chloride Level 113 H 98-107 mmol/L Carbon Dioxide Level 24 20-31 mmol/L Anion Gap 9 5-15 Blood Urea Nitrogen 20 9-23 mg/dL Creatinine 1.02 0.700-1.30 mg/dL Glomerular Filtration Rate Calc 79 >90 mL/min BUN/Creatinine Ratio 19.6 10.0-20.0 Serum Glucose 92 74-106 mg/dL Calcium Level 8.6 L 8.7-10.4 mg/dL Patient history of dementia. Vitals stable. Unable to get a good history from the patient. Comfortable. Hemoglobin slightly low. No sign of any bleeding. Blood pressure elevated. Was given clonidine. GI consultation. Waiting for family. Continue to monitor. Time of 1ST Reevaluation: 15:21 Reevaluation 1ST: Unchanged Patient Education/Counseling: Diagnosis, Treatment Family Education/Counseling: No Family Present SEPSIS Sepsis Screen Date sepsis recognized/suspect: Jun 22, 2025 Time Sepsis recognized/suspect: 1352 Recent Procedure: No On Antibiotic Therapy: No Respiratory Rate >20: No Heart Rate >90: No Temp<36 C (96.8 F) or >38.3 C: No SBP <90 or MAP <65 mmHG: No New Acute Mental Status Change: No Is the patient on CPAP, BIPAP,: No Physician Orders Complete Blood Count (06/22/25 14:49) Urinalysis (06/22/25 14:49) Manual Differential (06/22/25 15:05) Vital Signs Date Time Temp Pulse Resp B/P (MAP) Pulse Ox O2 Delivery O2 Flow Rate FiO2 06/22/25 15:00 71 06/22/25 14:57 98.0 77 25 159/69 (99) 99 98.0 06/22/25 14:50 75 20 159/69 (99) 98 06/22/25 14:50 75 20 98 Room Air* 0 21 06/22/25 13:58 98.3 67 18 132/63 96 98.3 Laboratory Tests Test 06/22/25 15:05 White Blood Count 7.2 10^3/uL (4.4-10.8) Departure 1 Departure Time of Disposition: 16:23 Impression: Primary Impression: Symptomatic anemia Disposition: ADMITTED INPATIENT Admit to: Med Surg Condition: Guarded e-Prescriptions Unable to Obtain Active Prescriptions or Reported Meds Critical Care Note Critical Care Time?: No Stability Stability form required: No Heart Score Heart Score: Heart Score Response (Comments) Value History N/A 0 EKG N/A 0 Age N/A 0 Risk Factors N/A 0 Troponin N/A 0 Total 0 I personally scribed for BAILEY DELGADO MD ([email or web address]) on 06/22/25 at 14:23. Electronically submitted by Raimundo Zaldivar ([email or web address]). BAILEY DELGADO MD Jun 22, 2025 14:23
[2025-06-22 14:50] VITALS: PULSE 75; RESP 20; O2SAT 98
[2025-06-22 15:58] LABS: Mean Corpuscular Volume 79.2 fL (80.0-100.0)
[2025-06-22 16:00] LABS: Hematocrit 23.5 % (41.0-53.0); Hemoglobin 7.8 g/dL (13.5-17.5); Mean Corpuscular Hemoglobin 26.2 pg (28.0-32.0)
[2025-06-22 16:04] LABS: Potassium 4.0 mmol/L (3.5-5.1)
[2025-06-22 16:05] LABS: Anion Gap 9 (5-15); Carbon Dioxide 24 mmol/L (20-31)
[2025-06-22 16:07] LABS: Calcium 8.6 mg/dL (8.7-10.4); Chloride 113 mmol/L (98-107); Sodium 146 mmol/L (136-145)
[2025-06-22 16:10] LABS: BUN/Creatinine Ratio 19.6 (10.0-20.0); Blood Urea Nitrogen 20 mg/dL (9-23); Glucose 92 mg/dL (74-106)
[2025-06-22 17:27] LABS: Nucleated Red Blood Cells % 2.0 %
[2025-06-22 17:29] LABS: Total Cells Counted 100.0 (100)
[2025-06-22 17:30] LABS: Anisocytosis Slight; Macrocytosis Slight; Ovalocytes FEW
[2025-06-22 17:31] LABS: Tear Drop Cells FEW
--- NOTE | 2025-06-22 19:56 | DVHHP2 ---
Admitting Diagnosis: Anemia History of Present Illness This is a 69 year old male EVELIA presenting to the ED with chief complaint of abnormal labs. EMS reports patient is coming from [facility] where he had labs drawn on Wednesday. EMS relays that the results came back today showing a hemoglobin level of 7.0. EMS states patient has been noted to be pale recently, but there is no obvious active bleeding noted at this time. EMS notes patient is normally A/O x1 due to history of dementia according to . No further symptoms or concerns at this time. PAST MEDICAL HISTORY: Anemia, Cancer, Dementia Surgical History: Unknown Family History Family History: Reviewed,noncontributory to illness Social History Smoker: Non-Smoker Alcohol: Denies ETOH Use Drugs: Denies Drug Use Lives In: Snf Patient Family History: Patient reports no known family medical history. Allergies: Coded Allergies: Morphine (Verified Allergy, Unknown, 06/22/25) Home Meds Unable to Obtain Active Prescriptions or Reported Meds Vital Signs Vital Signs Date Time Temp Pulse Resp B/P (MAP) Pulse Ox O2 Delivery O2 Flow Rate FiO2 06/22/25 16:00 64 06/22/25 16:00 98.6 20 141/65 (90) 99 98.6 06/22/25 14:50 Room Air* 0 21 Physical Exam Generally-69 years old male, well nourished well developed. No apparent distress HEENT-atraumatic normocephalic Heart-regular rate and rhythm Lungs clear to auscultate Abdomen soft nontender nondistended Musculoskeletal-no edema cyanosis Neuro-AO x1 to self, strength and sensation intact. SEPSIS Sepsis Screen Date sepsis recognized/suspect: Jun 22, 2025 Time Sepsis recognized/suspect: 1450 Recent Procedure: No On Antibiotic Therapy: No Respiratory Rate >20: No Heart Rate >90: No Temp<36 C (96.8 F) or >38.3 C: No SBP <90 or MAP <65 mmHG: No New Acute Mental Status Change: No Is the patient on CPAP, BIPAP,: No Physician Orders Urinalysis (06/22/25 14:49) Cardiac Diet-2gna,Lofat,Lochol (06/22/25 Dinner) Sitter 1:1 (06/22/25 16:54) Admit (06/22/25 19:52) Code Status (06/22/25:52) Vital Signs .PER UNIT PROTOCOL (06/22/25 19:52) Review Orders With Adm.Md (06/22/25 19:52) Encourage Activity As Tolerate (06/22/25:52) Regular Diet (06/23/25 Breakfast) Sodium Chloride Lock (Saline Lock Ns) (06/22/25 22:00) Docusate Sodium Capsule (Colace Capsule) (06/22/25 20:00) Acetaminophen Tablet (Tylenol Tablet) (06/22/25 20:00) Notify Md Of Changes From Base (06/22/25:52) Advance Directive (06/22/25:52) Patient Condition (06/22/25:52) Allergies (06/22/25:) Hydrocodone-Acet 5/325mg Tab ([place] 532 (06/22/25 20:00) Ondansetron Hcl (Zofran) (06/22/25 20:00) Comprehensive Metabolic Panel (06/23/25 05:00) Comprehensive Metabolic Panel (06/24/25 05:00) Comprehensive Metabolic Panel (06/25/25 05:00) Comprehensive Metabolic Panel (06/26/25 05:00) Comprehensive Metabolic Panel (06/27/25 05:00) Complete Blood Count (06/23/25 05:00) Complete Blood Count (06/24/25 05:00) Complete Blood Count (06/25/25 05:00) Complete Blood Count (06/26/25 05:00) Complete Blood Count (06/27/25 05:00) Vital Signs Date Time Temp Pulse Resp B/P (MAP) Pulse Ox O2 Delivery O2 Flow Rate FiO2 06/22/25 16:00 64 06/22/25 16:00 98.6 62 20 141/65 (90) 99 98.6 06/22/25 15:00 71 06/22/25 14:57 98.0 77 25 159/69 (99) 99 98.0 06/22/25 14:50 75 20 159/69 (99) 98 06/22/25 14:50 75 20 98 Room Air* 0 21 06/22/25 13:58 98.3 67 18 132/63 96 98.3 Laboratory Tests Test 06/22/25 15:05 White Blood Count 7.2 10^3/uL (4.4-10.8) Results Labs Test 06/22/25 15:05 Range/Units White Blood Count 7.2 4.4-10.8 10^3/uL Red Blood Count 2.97 L 4.5-5.90 10^6/uL Hemoglobin 7.8 L 13.5-17.5 g/dL Hematocrit 23.5 L 41.0-53.0 % Mean Corpuscular Volume 79.2 L 80.0-100.0 fL Mean Corpuscular Hemoglobin 26.2 L 28.0-32.0 pg Mean Corpuscular Hemoglobin Concent 33.0 32.0-36.0 g/dL Red Cell Distribution Width 20.5 H 11.8-14.3 % Platelet Count 101 L 140-450 10^3/uL Mean Platelet Volume 8.1 6.9-10.8 fL Neutrophils (%) (Auto) 37.0-80.0 % Lymphocytes (%) (Auto) 10.0-50.0 % Monocytes (%) (Auto) 0.0-12.0 % Basophils (%) (Auto) 0.0-2.0 % Neutrophils # (Auto) 1.6-8.6 10 ^3/uL Lymphocytes # (Auto) 0.4-5.4 10 ^3/uL Monocytes # (Auto) 0-1.3 10 ^3/uL Differential Total Cells Counted 100.0 100 Neutrophils % (Manual) 36 L 37.0-80.0 Band Neutrophils % (Manual) 10 Lymphocytes % (Manual) 29 10.0-50.0 Monocytes % (Manual) 15 H 0-12 Eosinophils % (Manual) 0 0-7 Basophils % (Manual) 0 0.0-2.0 Metamyelocytes % (manual) 4 Myelocytes % (Manual) 5 Promyelocytes % (Manual) 0 Blast Cells % (Manual) 1 Nucleated Red Blood Cells 2.0 % Reactive Lymphocytes 0 Platelet Estimate Decreased Anisocytosis (manual) Slight Macrocytosis Slight Tear Drop Cells Few Ovalocytes Few Schistocytes Few Sodium Level 146 H 136-145 mmol/L Potassium Level 4.0 3.5-5.1 mmol/L Chloride Level 113 H 98-107 mmol/L Carbon Dioxide Level 24 20-31 mmol/L Anion Gap 9 5-15 Blood Urea Nitrogen 20 9-23 mg/dL Creatinine 1.02 0.700-1.30 mg/dL Glomerular Filtration Rate Calc 79 >90 mL/min BUN/Creatinine Ratio 19.6 10.0-20.0 Serum Glucose 92 74-106 mg/dL Calcium Level 8.6 L 8.7-10.4 mg/dL Primary Diagnosis Anemia due to MDS Plan History gathered from the daughter at the bedside due to patient having vascular dementia. Patient usually gets 1U PRBC every 3 weeks Patient's hemoglobin was 7.0 two on blood draw for in ED was 7.8. BP stable, heart rate is stable Repeat CBC. If less than seven transfuse Neither medication reconciliation. Resume home meds Full code SCD for DVT prophylaxis GI prophylaxis needed Plan discussed with: Patient Problems List: (1) Anemia (2) MDS (myelodysplastic syndrome) Date of Service: Jun 22, 2025 Billing Provider: TYLER LEDESMA MD Common Visit Codes: [id number] INP/OBS CARE (MOD) TYLER LEDESMA MD Jun 22, 2025 19:56
[2025-06-22] MEDS ORDERED: ONDANSETRON HCL 4 MG/2 ML VIAL IV PRN (20:00)
[2025-06-22] MEDS ORDERED: DOCUSATE SOD 100 MG CAP PO PRN (20:00)
[2025-06-22] MEDS ORDERED: ACETAMINOPHEN 325 MG TAB PO PRN (20:00)
[2025-06-22] MEDS: SODIUM CHLOR 0.9% PF (SALINE LOCK) 10ML VIAL/SYR IV SCH (22:15)
[2025-06-22] MEDS: ZOLPIDEM TARTRATE 5 MG TAB PO SCH (22:15)
[2025-06-23 07:40] VITALS: PULSE 59; RESP 19; O2SAT 95
[2025-06-23 08:05] LABS: Hemoglobin 7.1 g/dL (13.5-17.5); Mean Corpuscular Volume 77.4 fL (80.0-100.0)
[2025-06-23 08:10] LABS: Hematocrit 20.6 % (41.0-53.0); Mean Corpuscular Hemoglobin 26.7 pg (28.0-32.0)
[2025-06-23 08:24] LABS: Alanine Aminotransferase 10 U/L (7-40); Albumin 3.5 g/dL (3.2-4.8); Anion Gap 9 (5-15); BUN/Creatinine Ratio 21.0 (10.0-20.0); Bilirubin, Total 0.6 mg/dL (0.2-1.0); Blood Urea Nitrogen 17 mg/dL (9-23); Carbon Dioxide 24 mmol/L (20-31); Glucose 92 mg/dL (74-106); Potassium 3.8 mmol/L (3.5-5.1); Sodium 143 mmol/L (136-145); Total Protein 5.8 g/dL (5.7-8.2)
[2025-06-23 08:25] LABS: Alkaline Phosphatase 167 U/L (46-116); Calcium 8.7 mg/dL (8.7-10.4); Chloride 110 mmol/L (98-107)
[2025-06-23 08:36] LABS: Anisocytosis Slight; Nucleated Red Blood Cells % 1.0 %; Total Cells Counted 100.0 (100)
--- NOTE | 2025-06-23 15:52 | DVHPN2 ---
Subjective Covering for [facility] for today. Patient chart is reviewed seen and evaluated and discussed with the nurse at bedside. Patient is alert awake oriented to person. Patient apparently has history of dementia. He came from a convalescent home for generalized weakness. He is apparently known to have MDS and gets transfusions as needed. Currently his hemoglobin is 7.1. Changes from previous H/P or p: No Changes Objective Vitals Vital Signs Date Time Temp Pulse Resp B/P (MAP) Pulse Ox O2 Delivery O2 Flow Rate FiO2 06/23/25 12:00 98.2 59 16 139/53 (81) 98 98.2 06/23/25 07:40 Room Air* 0 21 Exam Alert awake oriented to name. Not agitated bed comfortable lying in bed. Elderly frail-appearing gentleman without distress. HEENT neck supple no JVD. Pupils equal round react to light. Heart regular rate and rhythm S1-S2. Lungs fair air movement without rales wheezes. Abdomen soft nontender positive bowel sounds. Extremities no edema positive pulses. Medications Current Medications Medications Dose Ordered Sig/Barron Route Start Time Stop Time Status Last Admin Dose Admin Sodium Chloride 10 ml Q8HR IV 06/22/25 22:00 06/23/25 14:00 10 ML Docusate Sodium 100 mg BIDPRN PRN PO 06/22/25 20:00 Acetaminophen 650 mg Q6HP PRN PO 06/22/25 20:00 Acetaminophen/ Hydrocodone Bitart 1 tab Q4HP PRN PO 06/22/25 20:00 Ondansetron HCl 4 mg Q4HP PRN IV 06/22/25 20:00 Zolpidem Tartrate 10 mg HS PO 06/22/25 22:00 06/22/25 22:15 10 MG Laboratory Results Laboratory Tests 06/23/25 07:30 Chemistry Test 06/23/25 07:30 Albumin 3.5 g/dL (3.2-4.8) Calcium Level 8.7 mg/dL (8.7-10.4) Total Protein 5.8 g/dL (5.7-8.2) LFT Test 06/23/25 07:30 Alanine Aminotransferase (ALT) 10 U/L (7-40) Alkaline Phosphatase 167 U/L (46-116) H Aspartate Amino Transferase (AST) 26 U/L (13-40) Total Bilirubin 0.6 mg/dL (0.2-1.0) Assessment/Plan Assessment/Plan Given the patient's weakness with the intermittent tachycardia and hemoglobin around seven we will transfuse 2 units of packed red blood cells. We will give him Lasix in between the units. Physical therapy evaluation. We will check a urine analysis to make sure does not have any underlying UTI causing his weakness. Otherwise continue rest of supportive care and treatment. Further clinical management per clinical course. Discussed with the nurse at bedside regarding care plan. Plan discussed with: Patient, Other My Orders Orders - JOE WEEKS MD Procedure Category Date Status Time Type And Screen BBK 06/23/25 Logged 15:46 Packedcell-Noactive BBK 06/23/25 Transmitted Bleeding 15:46 Acetaminophen Extra PHA 06/23/25 Transmitted Strength 16:00 Pt Request For Service PT 06/23/25 Transmitted 15:46 * Aquaculture Director CONS 06/23/25 Transmitted Consult Complete Blood Count LAB 06/24/25 Verified 04:00 Problem List: (1) Generalized weakness (2) Symptomatic anemia (3) MDS (myelodysplastic syndrome) Date of Service: Jun 23, 2025 Billing Provider: JOE WEEKS MD Common Visit Codes: [id number] INP/OBS CARE(MOD) JOE WEEKS MD Jun 23, 2025 15:52
[2025-06-23 17:49] LABS: Urine Budding Yeast OCCASIONAL /hpf (None Seen); Urine Protein, UAD 1+ (Negative)
[2025-06-23 18:40] VITALS: PULSE 62; RESP 17; O2SAT 97
[2025-06-23 18:48] VITALS: BP 155/60; PULSE 57; RESP 16; TEMP 98.4; O2SAT 99
[2025-06-23] MEDS: cefTRIAXone 1GM/50ML D5W 50 ML IV ONE (18:50)
[2025-06-23 20:00] VITALS: PULSE 62; RESP 17; O2SAT 97
[2025-06-23] MEDS: ACETAMINOPHEN 325 MG TAB PO ONE (20:40)
[2025-06-23 21:00] VITALS: BP 150/81; PULSE 62; RESP 17; TEMP 98.2; O2SAT 97
[2025-06-23 21:05] VITALS: BP 150/81; PULSE 62; RESP 17; TEMP 98.2; O2SAT 97
[2025-06-23] MEDS ORDERED: MEMA1TAB3 PO (21:28)
[2025-06-23] MEDS ORDERED: POTA-36 PO (21:28)
[2025-06-23] MEDS ORDERED: AMLO1TAB23 PO (21:28)
[2025-06-23] MEDS ORDERED: ATOR40TA52 PO (21:28)
[2025-06-23] MEDS ORDERED: ZOLP10TA6 PO (21:28)
[2025-06-23] MEDS ORDERED: CLOP75TA70 PO (21:28)
[2025-06-23] MEDS ORDERED: FOLI-119 PO (21:28)
[2025-06-23] MEDS ORDERED: diphenhdrAMINE HCL 25 MG CAP PO PRN (22:00)
[2025-06-24] VITALS (14 sets, daily range): BP systolic 114–174; BP diastolic 44–74; PULSE 54–70; RESP 15–18; TEMP 97.3–98.3; O2SAT 96–100
[2025-06-24 02:07] LABS: Hematocrit 21.2 % (41.0-53.0); Hemoglobin 7.3 g/dL (13.5-17.5); Mean Corpuscular Hemoglobin 26.3 pg (28.0-32.0); Mean Corpuscular Volume 76.9 fL (80.0-100.0)
[2025-06-24 03:53] LABS: Total Cells Counted 100.0 (100)
[2025-06-24 03:55] LABS: Anisocytosis Moderate
[2025-06-24 05:03] LABS: Hematocrit 22.0 % (41.0-53.0); Hemoglobin 7.5 g/dL (13.5-17.5); Mean Corpuscular Hemoglobin 26.5 pg (28.0-32.0); Mean Corpuscular Volume 78.3 fL (80.0-100.0)
[2025-06-24 05:20] LABS: Alanine Aminotransferase 11 U/L (7-40); Albumin 3.4 g/dL (3.2-4.8); Anion Gap 10 (5-15); BUN/Creatinine Ratio 22.8 (10.0-20.0); Bilirubin, Total 0.5 mg/dL (0.2-1.0); Blood Urea Nitrogen 21 mg/dL (9-23); Carbon Dioxide 24 mmol/L (20-31); Glucose 88 mg/dL (74-106); Potassium 4.0 mmol/L (3.5-5.1); Sodium 143 mmol/L (136-145)
[2025-06-24 05:32] LABS: Alkaline Phosphatase 172 U/L (46-116); Calcium 8.4 mg/dL (8.7-10.4); Chloride 109 mmol/L (98-107); Total Protein 5.4 g/dL (5.7-8.2)
[2025-06-24 07:24] LABS: Anisocytosis Slight; Total Cells Counted 100.0 (100)
[2025-06-24] MEDS: cefTRIAXone 1GM/50ML D5W 50 ML IV SCH (11:00)
[2025-06-24] MEDS: FUROSEMIDE 20 MG/2 ML VIAL IV ONE (12:36)
[2025-06-24 19:35] LABS: Hematocrit 33.8 % (41.0-53.0); Hemoglobin 11.6 g/dL (13.5-17.5)
--- NOTE | 2025-06-24 19:44 | DVHPN2 ---
Subjective Patient apparently guarded/agitated and confused overnight from his dementia. Patient received blood transfusion one year this morning. Otherwise comfortable in bed. He is urine cultures were growing young colonies. Changes from previous H/P or p: No Changes Objective Vitals Vital Signs Date Time Temp Pulse Resp B/P (MAP) Pulse Ox O2 Delivery O2 Flow Rate FiO2 06/24/25 17:00 97.9 65 18 158/62 (94) 99 97.9 06/24/25 08:00 Room Air* 0 21 Intake/Output Intake and Output 06/24/25 07:00 Intake Total 450 ml Balance 450 ml Intake Oral 450 ml # Voids 1 Exam Alert awake oriented to name. Confused and comfortable in bed. HEENT neck supple no JVD. Heart regular rate and rhythm S1-S2. Lungs fair air movement poor inspiratory effort. No wheezing. Abdomen soft nontender positive bowel sounds. Extremities no edema. Medications Current Medications Medications Dose Ordered Sig/Barron Route Start Time Stop Time Status Last Admin Dose Admin Sodium Chloride 10 ml Q8HR IV 06/22/25 22:00 06/24/25 12:00 10 ML Docusate Sodium 100 mg BIDPRN PRN PO 06/22/25 20:00 Acetaminophen 650 mg Q6HP PRN PO 06/22/25 20:00 Acetaminophen/ Hydrocodone Bitart 1 tab Q4HP PRN PO 06/22/25 20:00 Ondansetron HCl 4 mg Q4HP PRN IV 06/22/25 20:00 Zolpidem Tartrate 10 mg HS PO 06/22/25 22:00 06/23/25 21:17 10 MG Ceftriaxone Sodium 50 ml @ 100 mls/hr DAILY@09 IV 06/24/25 09:00 06/24/25 11:00 100 MLS/HR Hydralazine HCl 10 mg Q6HP PRN IV 06/23/25 18:15 Diphenhydramine HCl 25 mg Q8HP PRN PO 06/23/25 22:00 Laboratory Results Laboratory Tests 06/24/25 04:17 06/24/25 19:23 Chemistry Test 06/24/25 04:17 Albumin 3.4 g/dL (3.2-4.8) Calcium Level 8.4 mg/dL (8.7-10.4) L Total Protein 5.4 g/dL (5.7-8.2) L LFT Test 06/24/25 04:17 Alanine Aminotransferase (ALT) 11 U/L (7-40) Alkaline Phosphatase 172 U/L (46-116) H Aspartate Amino Transferase (AST) 25 U/L (13-40) Total Bilirubin 0.5 mg/dL (0.2-1.0) Urinalysis Test 06/23/25 16:00 Urine Color Light-yellow (Yellow) Urine Clarity Clear (Clear) Urine pH 6.5 (5.0-9.0) Urine Specific [place] 1.015 (1.001-1.035) Urine Protein 1+ (Negative) H Urine Ketones Negative (Negative) Urine Blood Negative /uL (Negative) Urine Nitrite Negative (Negative) Urine Bilirubin Negative (Negative) Urine Urobilinogen Normal mg/dL (Negative) Urine Leukocyte Esterase 1+ /uL (Negative) Urine RBC 5 /hpf (0 - 3) Urine Microscopic WBC 22 /HPF (0-3) H Urine Squamous Epithelial Cells Few /hpf (<5) Urine Bacteria None seen /hpf (None Seen) Urine Yeast (Budding) Occasional /hpf (None Urine Glucose Normal mg/dL (Normal) Microbiology Microbiology Date/Time Source Procedure Growth Status 06/24/25 01:20 Nose MRSA Screen - Final Complete Assessment/Plan Assessment/Plan Patient got transferred only 1 unit this morning. We will give him a Lasix as ordered and transfuse 2nd unit and repeat hemoglobin levels so this afternoon. Discussed with the nurse at bedside. Meantime continue IV antibiotic for his UTI till final cultures are available. Otherwise fall precautions and safety at an aunt at bedside given his agitation with problem risk. Otherwise continue rest of supportive care and treatment. Further clinical management per clinical course. Plan discussed with: Patient, Other My Orders Orders - JOE WEEKS MD Procedure Category Date Status Time * Resource Specialist Teacher CONS 06/23/25 Transmitted Consult 21:24 Problem List: (1) Acute UTI (urinary tract infection) (2) Symptomatic anemia (3) MDS (myelodysplastic syndrome) (4) Generalized weakness Date of Service: Jun 24, 2025 Billing Provider: JOE WEEKS MD Common Visit Codes: [id number] INP/OBS CARE(MOD) JOE WEEKS MD Jun 24, 2025 19:44
[2025-06-25] VITALS (7 sets, daily range): BP systolic 130–167; BP diastolic 48–72; PULSE 60–80; RESP 14–18; TEMP 97.5–98.1; O2SAT 96–99
[2025-06-25] MEDS: hydrALAZINE HCL 20 MG/ML VL IV PRN (00:40)
[2025-06-25] MEDS: HYDROcodone-ACET 5/325MG TAB PO PRN (00:40)
[2025-06-25 10:29] LABS: Hematocrit 28.1 % (41.0-53.0); Hemoglobin 9.4 g/dL (13.5-17.5); Mean Corpuscular Hemoglobin 27.2 pg (28.0-32.0); Mean Corpuscular Volume 81.1 fL (80.0-100.0)
[2025-06-25 10:42] LABS: Albumin 3.4 g/dL (3.2-4.8); Anion Gap 11 (5-15); BUN/Creatinine Ratio 24.2 (10.0-20.0); Bilirubin, Total 0.5 mg/dL (0.2-1.0); Carbon Dioxide 24 mmol/L (20-31); Glucose 91 mg/dL (74-106); Potassium 3.7 mmol/L (3.5-5.1)
[2025-06-25 10:54] LABS: Alanine Aminotransferase < 9 U/L (7-40); Alkaline Phosphatase 170 U/L (46-116); Blood Urea Nitrogen 24 mg/dL (9-23); Calcium 8.1 mg/dL (8.7-10.4); Chloride 111 mmol/L (98-107); Sodium 146 mmol/L (136-145); Total Protein 5.4 g/dL (5.7-8.2)
[2025-06-25 11:07] LABS: Nucleated Red Blood Cells % 3.0 %; Total Cells Counted 100.0 (100)
--- NOTE | 2025-06-25 11:42 | DVHPN2 ---
Progress Note Date Seen: Jun 25, 2025 Medical Necessity Reason Pt with a Central, PICC or Fol: No Subjective Patient reports: No new complaints Review of Systems: HEENT:Normal, CVS:Normal, RESPIRATORY:Normal, GI:Normal, :Normal, MSK:Normal, NEURO:Normal Objective vital signs Vital Sign Date Time Temp Pulse Resp B/P (MAP) Pulse Ox O2 Delivery O2 Flow Rate FiO2 06/25/25 09:00 97.7 60 18 149/59 (89) 97 97.7 06/25/25 08:00 Room Air* 0 21 Total Intake and Output 06/24/25 06/24/25 06/25/25 15:00 23:00 07:00 Intake Total 350 ml 250 ml 100 ml Balance 350 ml 250 ml 100 ml medications Current Medications Medications Dose Ordered Sig/Barron Route Start Time Stop Time Status Last Admin Dose Admin Sodium Chloride 10 ml Q8HR IV 06/22/25 22:00 06/25/25 05:57 10 ML Docusate Sodium 100 mg BIDPRN PRN PO 06/22/25 20:00 Acetaminophen 650 mg Q6HP PRN PO 06/22/25 20:00 Acetaminophen/ Hydrocodone Bitart 1 tab Q4HP PRN PO 06/22/25 20:00 06/25/25 00:40 1 TAB Ondansetron HCl 4 mg Q4HP PRN IV 06/22/25 20:00 Zolpidem Tartrate 10 mg HS PO 06/22/25 22:00 06/23/25 21:17 10 MG Ceftriaxone Sodium 50 ml @ 100 mls/hr DAILY@09 IV 06/24/25 09:00 06/25/25 09:23 100 MLS/HR Hydralazine HCl 10 mg Q6HP PRN IV 06/23/25 18:15 06/25/25 00:40 10 MG Diphenhydramine HCl 25 mg Q8HP PRN PO 06/23/25 22:00 Examination: GENERAL:Normal, HEENT:Normal, NECK:Normal, LUNGS:Normal, CVS:Normal, ABDOMEN:Normal, MSK:Normal, SKIN:Normal, NEURO:Normal, :Normal laboratory and microbiology Laboratory Tests 06/25/25 09:45 Test 06/25/25 09:45 Range/Units Serum Glucose 91 74-106 mg/dL Microbiology Date/Time Source Procedure Growth Status 06/24/25 01:20 Nose MRSA Screen - Final Complete Problem List/Assessment/Plan Problem List/Assessment/Plan #1 anemia s/p transfusion #2 thrombocytopenia #3 myelofibrosis #4 dementia #5 uti: iv rocephin #6 htn advance care planning- full code- time spent 18mins Plan discussed with: Patient My Orders My Orders Orders - LOLLY SÁNCHEZ MD Procedure Category Date Status Time Basic Metabolic Panel LAB 06/26/25 Verified 06:00 Dietary Evaluation Review Recommendations by RD: Increase Calorie Intake Comments: 1) Initiate Ensure Enlive qd 2) Encourage optimal PO intake 3) Follow-up with hematology and neurology 4) Continue to monitor I&O, labs, and skin integrity Expected Outcomes/Goals: 1) appetite and labs to improve 2) f/u in 3-5 days Date of Service: Jun 25, 2025 Billing Provider: LOLLY SÁNCHEZ MD Common Visit Codes: [id number] INP/OBS CARE(HIGH) Secondary Visit Codes: [id number] CARE PLAN 30 MINUTES LOLLY SÁNCHEZ MD Jun 25, 2025 11:42
[2025-06-26 01:00] VITALS: BP 147/72; PULSE 82; RESP 15; TEMP 97.5; O2SAT 97
[2025-06-26 05:00] VITALS: BP 137/83; PULSE 85; RESP 15; TEMP 97.1; O2SAT 97
[2025-06-26 06:32] LABS: Hematocrit 27.2 % (41.0-53.0); Hemoglobin 9.5 g/dL (13.5-17.5); Mean Corpuscular Hemoglobin 27.3 pg (28.0-32.0); Mean Corpuscular Volume 78.0 fL (80.0-100.0)
[2025-06-26 06:46] LABS: Potassium 3.9 mmol/L (3.5-5.1); Sodium 145 mmol/L (136-145)
[2025-06-26 06:47] LABS: Anion Gap 11 (5-15); Calcium 8.8 mg/dL (8.7-10.4); Carbon Dioxide 23 mmol/L (20-31)
[2025-06-26 06:52] LABS: BUN/Creatinine Ratio 23.6 (10.0-20.0); Glucose 91 mg/dL (74-106)
[2025-06-26 06:54] LABS: Blood Urea Nitrogen 26 mg/dL (9-23); Chloride 111 mmol/L (98-107)
[2025-06-26 08:31] VITALS: BP 139/55; PULSE 60; RESP 17; TEMP 98.2; O2SAT 96
[2025-06-26 09:19] LABS: Total Cells Counted 100.0 (100)
--- NOTE | 2025-06-26 10:00 | DVHDS2 ---
Discharge Summary Date of Admission Jun 22, 2025 at 19:52 Date of Discharge: Jun 26, 2025 Labs/Diagnostic Data: Laboratory Results Test 06/26/25 05:46 06/25/25 09:45 06/24/25 04:17 06/24/25 01:28 White Blood Count 6.6 10^3/uL (4.4-10.8) Red Blood Count 3.48 10^6/uL (4.5-5.90) Hemoglobin 9.5 g/dL (13.5-17.5) Hematocrit 27.2 % (41.0-53.0) Mean Corpuscular Volume 78.0 fL (80.0-100.0) Mean Corpuscular Hemoglobin 27.3 pg (28.0-32.0) Mean Corpuscular Hemoglobin Concent 35.0 g/dL (32.0-36.0) Red Cell Distribution Width 19.7 % (11.8-14.3) Platelet Count 88 10^3/uL (140-450) Mean Platelet Volume 7.8 fL (6.9-10.8) Neutrophils (%) (Auto) % (37.0-80.0) Lymphocytes (%) (Auto) % (10.0-50.0) Monocytes (%) (Auto) % (0.0-12.0) Basophils (%) (Auto) % (0.0-2.0) Neutrophils # (Auto) 10 ^3/uL (1.6-8.6) Lymphocytes # (Auto) 10 ^3/uL (0.4-5.4) Monocytes # (Auto) 10 ^3/uL (0-1.3) Differential Total Cells Counted 100.0 (100) Neutrophils % (Manual) 41 (37.0-80.0) Band Neutrophils % (Manual) 6 Lymphocytes % (Manual) 40 (10.0-50.0) Monocytes % (Manual) 7 (0-12) Eosinophils % (Manual) 0 (0-7) Basophils % (Manual) 0 (0.0-2.0) Metamyelocytes % (manual) 4 Myelocytes % (Manual) 0 Promyelocytes % (Manual) 0 Blast Cells % (Manual) 2 Reactive Lymphocytes 0 Platelet Estimate Decreased Microcytosis Slight Sodium Level 145 mmol/L (136-145) Potassium Level 3.9 mmol/L (3.5-5.1) Chloride Level 111 mmol/L (98-107) Carbon Dioxide Level 23 mmol/L (20-31) Anion Gap 11 (5-15) Blood Urea Nitrogen 26 mg/dL (9-23) Creatinine 1.10 mg/dL (0.700-1.30) Glomerular Filtration Rate Calc 72 mL/min (>90) BUN/Creatinine Ratio 23.6 (10.0-20.0) Serum Glucose 91 mg/dL (74-106) Calcium Level 8.8 mg/dL (8.7-10.4) Vitamin B12 Level 437 pg/mL (211-911) Thyroid Stimulating Hormone (TSH) 1.90 uIU/mL (0.55-4.78) Nucleated Red Blood Cells 3.0 % Total Bilirubin 0.5 mg/dL (0.2-1.0) Aspartate Amino Transferase (AST) 24 U/L (13-40) Alanine Aminotransferase (ALT) < 9 U/L (7-40) Alkaline Phosphatase 170 U/L (46-116) Total Protein 5.4 g/dL (5.7-8.2) Albumin 3.4 g/dL (3.2-4.8) Anisocytosis (manual) Slight Hypochromasia (manual) Slight Test 06/23/25 16:00 06/22/25 15:05 Urine Color Light-yellow (Yellow) Urine Clarity Clear (Clear) Urine pH 6.5 (5.0-9.0) Urine Specific [place] 1.015 (1.001-1.035) Urine Protein 1+ (Negative) Urine Ketones Negative (Negative) Urine Blood Negative /uL (Negative) Urine Nitrite Negative (Negative) Urine Bilirubin Negative (Negative) Urine Urobilinogen Normal mg/dL (Negative) Urine Leukocyte Esterase 1+ /uL (Negative) Urine RBC 5 /hpf (0 - 3) Urine Microscopic WBC 22 /HPF (0-3) Urine Squamous Epithelial Cells Few /hpf (<5) Urine Bacteria None seen /hpf (None Seen) Urine Yeast (Budding) Occasional /hpf (None Urine Glucose Normal mg/dL (Normal) Macrocytosis Slight Tear Drop Cells Few Ovalocytes Few Schistocytes Few Other Laboratory Tests 06/26/25 05:46 Brief Hx & Hospital Course: see dictated note Condition at Discharge: Guarded Final Diagnosis/Problems List anemia Discharge Disposition: [facility] Facility Discharge Instruct/Medications Diet: Regular Activity: No Restrictions, As Tolerated Follow Up/Referral: fu with pcp in 1 wk Medications: per mar Scheduled Amlodipine Besylate (Amlodipine Besylate), 1 TAB PO DAILY, (Reported) Atorvastatin Calcium (Atorvastatin Calcium), 1 TAB PO DAILY, (Reported) Clopidogrel Bisulfate (Clopidogrel), 1 TAB PO DAILY, (Reported) Folic Acid (Folic Acid), 1 TAB PO DAILY, (Reported) Memantine Hydrochloride (Memantine HCl), 1 TAB PO BID, (Reported) Scheduled PRN Zolpidem Tartrate (Zolpidem Tartrate), 1 TAB PO QHSP PRN for FOR INSOMNIA, (Reported) Miscellaneous Medications Potassium Chloride (Potassium Chloride Cr), 20 MEQ PO, (Reported) Discharge Statement: "Patient was advised to return to the ER or call 911 if any headaches, dizziness, shortness of breath, chest pain, abdominal pain, bleeding, fevers, or worsening of medical condition. Patient was counseled about treatment plan, medications, possible side effects, patientverbalized understanding. All questions were answered to the best of my ability. This discharge took greater then 30 minutes in planning, reviewing documentation, counseling the patient, and discussing with other team members." ASSESSMENT ASSESSMENT Assessment anemia Date of Service: Jun 26, 2025 Billing Provider: LOLLY SÁNCHEZ MD Common Visit Codes: 27405-SON/OBS DISCH DAY >30min LOLLY SÁNCHEZ MD Jun 26, 2025 10:00
--- NOTE | 2025-06-26 10:12 | DVHDS ---
DATE OF DISCHARGE: 06/26/2025 HISTORY OF PRESENT ILLNESS: The patient is a 69-year-old gentleman who was admitted with abnormal labs and low hemoglobin. He has a history of myelofibrosis, dementia, and anemia. HOSPITAL COURSE: The patient was transfused 2 units of blood. The patient's hemoglobin at the time of discharge is 9.5. Platelets are 88,000. TSH was 1.9 with a B12 of 437. He also had evidence of UTI and was placed on IV Rocephin. I had a long discussion with the patient's and he will now be discharged back to [facility] with medications as per med reconciliation. He will followup with his primary in 1 week. FINAL DIAGNOSES: * Anemia status post transfusion. * Thrombocytopenia. * Myelofibrosis. * UTI. * Hypertension. * Dementia. * DNR status. Time spent in discharge planning and review of plan with the patient, nursing and family was 39 minutes. MD MIKKI Garcia/CHRISTOPHER TID: [id number] RECEIPT: [id number]
[2025-06-26 12:57] VITALS: BP 134/75; PULSE 67; RESP 16; TEMP 98.2; O2SAT 98
== END 2025-06-26 16:36 | DRG 812 ==
LOC: EDBD 13:54 → ER 13:54 → EDUNIT# 13:54 → OVERFLOW 19:52 → EAST 06-23 18:35
PROVIDERS: ADMIT Internal Medicine; ATTEND Internal Medicine
PROC: 30233N1 Transfusion of Nonautologous Red Blood Cells into Peripheral Vein, Percutaneous Approach (ICD-10-PCS; principal; 2025-06-24)
DX: D46.9 Myelodysplastic syndrome, unspecified (principal); N39.0 Urinary tract infection, site not specified; D75.81 Myelofibrosis; F03.90 Unspecified dementia, unspecified severity, without behavioral disturbance, psychotic disturbance, mood disturbance, and anxiety; Z66 Do not resuscitate; D69.6 Thrombocytopenia, unspecified; I10 Essential (primary) hypertension; D63.0 Anemia in neoplastic disease; F01.50 Vascular dementia, unspecified severity, without behavioral disturbance, psychotic disturbance, mood disturbance, and anxiety; Z88.5 Allergy status to narcotic agent; Z79.899 Other long term (current) drug therapy
CPT/HCPCS: 36415; 36430; 80048; 80053; 81001; 82607; 84443; 85007; 85014; 85018; 85027; 86850; 86900; 86901; 86920; 87081; 87086; 97110; 97116; 97163; G0378

== ENCOUNTER 2025-07-19 16:22 | Inpatient (IN) | payer MEDICARE, MEDICAID ==
[~2025-07-19] VITALS: Ht 175.3 cm; Wt 56.7 kg
[~2025-07-19 16:22] MED LIST: AMLO1TAB23 PO; ATOR40TA52 PO; CLOP75TA70 PO; FOLI-119 PO; MEMA1TAB3 PO; POTA-36 PO; ZOLP10TA6 PO
--- NOTE | 2025-07-19 17:08 | ED.PDOC ---
History of Present Illness HPI Comments HPI: 69y M who presents to the ED via EMS for chief complaint of generalized weakness - per EMS, pt is resident at [facility] and has been having generalized weakness for the past 3 days - EMS notes pt has history of dementia and is [id number] which is baseline - pt has noted history of m myelofibrosis, and often requires blood transfusions - Per family, pt usually requires blood transfusions when he gets this weakness - per prior notes, pt was discharged from on 06/26 which the following discharge summary - HOSPITAL COURSE: The patient was transfused 2 units of blood. The patient's hemoglobin at the time of discharge is 9.5. Platelets are 88,000. TSH was 1.9 with a B12 of 437. He also had evidence of UTI and was placed on IV Rocephin. I had a long discussion with the patient's and he will now be discharged back to [facility] with medications as per med reconciliation. He will followup with his primary in 1 week. 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 AAA, TIA's, HTN, HLD Past Surgical History: colonoscopy,endoscopy, R carotid artery duplex Social History: Denies ETOH, smoking, and drug use. Medications: Plavix Allergies: nkda robin; LOW HGB, WEAK. NO BLEEDING, SLIGHT PALE. HPI: Poor Historian. Past Medical History: Past Surgical History: REVIEW OF SYSTEMS: CONSTITUTIONAL: Denies acute: fever, diaphoresis, chills, HEAD: Denies acute: headache, photophobia Eyes: Denies acute: Double vision, vision loss, eye pain, eye discharge. EARS: Denies acute: tinnitus, hearing loss, ear discharge, ear pain, THROAT: Denies acute: sore throat, swelling, difficulty swallowing , pain with swallowing, change in voice. NECK: Denies acute: neck pain, neck swelling, stiff neck. HEART: Denies acute : chest pain, palpitations, LUNGS: Denies acute: SOB, wheezing, cough, hemoptysis ABDOMEN: Denies acute: abdominal pain, Nausea, Vomiting, diarrhea, melena , hematemesis, hematochezia SKIN: Denies acute: rash, redness, lesions, itchiness. EXTREMITIES: Denies acute: calf pain, numbness, tingling, weakness, denies pain in extremity. Denies acute: Low back pain. Neuro: Denies acute: focal neurological deficit, motor or sensory focal neurological deficit, tremors, seizure like activity, confusion, dizziness, change in mental status, loss of bowel or bladder function, cauda equina like symptoms. : Denies acute: dysuria, hematuria, flank pain, increase in urinary frequency. PSYCH: Denies acute: hallucination, suicidal ideation, homicidal ideation. PHYSICAL EXAM: General: ----NO----acute distress, awake and alert. Head: normocephalic, atraumatic. Neck: supple, trachea is midline, no swelling. Throat: Normal phonation. Eyes:, no erythema, no purulent discharge, no proptosis, no icterus. Heart: regular rate, regular rhythm, no significant murmur appreciated. Lungs: no apparent respiratory distress, Able to speak in full sentences. No wheezing, no rhonchi, no crackles. No stridors Clear to auscultation bilaterally. Abdomen: non tender to palpation, non distended, soft, no guarding, no rebound, + bowel sounds. PATIENT IS WEARING A DIAPER. Neuro: Awake, Alert, oriented to name, self, situation, follows commands. HISTORY OF DEMENTIA. AT BASELINE PER FAMILY AT BEDSIDE. GCS=15. Speech is normal. Skin: no petechia, no purpura, no cyanosis, slightly-pale, not jaundice. Lower extremities: --no - Pitting edema no deformity, no focal swelling, no calf TTP. Makes eye contact. Face: no apparent facial droop. ED COURSE: DISCLAIMER: This medical document was created using an electronic medical record system with voice recognition software and computerized dictation system. Although this document has been carefully reviewed, there might still be some phonetic and typographical errors. Occasional wrong-word or "sound-alike" substitutions may have occurred due to the inherent limitations of voice recognition software. These areas are purely typographical due to imperfections of the software programs and do not reflect any compromise in the patient's medical care. Please read the chart carefully and recognize, using context, where these substitutions have occurred. Chief Complaint: General Weakness Time Seen by MD: 17:15 Reviewed Notes: Medications, Allergies Allergies: Coded Allergies: Morphine (Verified Allergy, Unknown, 06/22/25) Home Meds Reported Medications Potassium Chloride (POTASSIUM CHLORIDE CR) 10 Meq Tb, 20 MEQ PO, TAB 06/23/25 Amlodipine Besylate (Amlodipine Besylate) 10 Mg Tab, 1 TAB PO DAILY 06/23/25 Clopidogrel Bisulfate (CLOPIDOGREL) 75 Mg Tab, 1 TAB PO DAILY 06/23/25 Folic Acid (Folic Acid) 1 Mg Tab, 1 TAB PO DAILY 06/23/25 Memantine Hydrochloride (Memantine HCl) 5 Mg Tab, 1 TAB PO BID 06/23/25 Atorvastatin Calcium (ATORVASTATIN CALCIUM) 40 Mg Tab, 1 TAB PO DAILY 06/23/25 Information Source: Patient, Relative Mode of Arrival: EMS Past Medical History PAST MEDICAL HISTORY: Anemia, Cancer, Dementia Surgical History: Unknown Family History Family History: Reviewed,noncontributory to illness Social History Smoker: Non-Smoker Alcohol: Denies ETOH Use Drugs: Denies Drug Use Lives In: Snf Was a procedure done? Was a procedure done?: No Differential Dx Considerations may include: Includes but not limited to thyroid disease, encephalopathy, electrolyte abnormality, sepsis, infection, intracranial pathology, drug adverse effects, arrhythmia, kidney insufficiency, ACS, CVA, malignancy, anemia X-Ray, Labs, Meds, VS Vital Signs Date Time Temp Pulse Resp B/P (MAP) Pulse Ox O2 Delivery O2 Flow Rate FiO2 07/19/25 19:18 71 14 97 Room Air* 0 21 07/19/25 19:18 97.7 71 14 181/64 (103) 97 97.7 07/19/25 18:00 58 150/53 (85) 99 07/19/25 17:26 66 18 98 Room Air* 0 21 07/19/25 16:50 97.9 66 18 178/63 (101) 98 97.9 07/19/25 16:25 97.0 66 16 159/66 98 97.0 07/19/25 16:24 66 Lab Test 07/19/25 20:02 07/19/25 17:36 07/19/25 17:23 Range/Units Hemoglobin 6.6 *L 7.2 L 13.5-17.5 g/dL Hematocrit 19.3 L 21.3 L 41.0-53.0 % Troponin I High Sensitivity 6 6 </=54 ng/L White Blood Count 6.6 4.4-10.8 10^3/uL Red Blood Count 2.73 L 4.5-5.90 10^6/uL Mean Corpuscular Volume 77.8 L 80.0-100.0 fL Mean Corpuscular Hemoglobin 26.4 L 28.0-32.0 pg Mean Corpuscular Hemoglobin Concent 33.9 32.0-36.0 g/dL Red Cell Distribution Width 20.7 H 11.8-14.3 % Platelet Count 106 L 140-450 10^3/uL Mean Platelet Volume 7.8 6.9-10.8 fL Neutrophils (%) (Auto) 37.0-80.0 % Lymphocytes (%) (Auto) 10.0-50.0 % Monocytes (%) (Auto) 0.0-12.0 % Basophils (%) (Auto) 0.0-2.0 % Neutrophils # (Auto) 1.6-8.6 10 ^3/uL Lymphocytes # (Auto) 0.4-5.4 10 ^3/uL Monocytes # (Auto) 0-1.3 10 ^3/uL Differential Total Cells Counted 100.0 100 Neutrophils % (Manual) 33 L 37.0-80.0 Band Neutrophils % (Manual) 10 Lymphocytes % (Manual) 34 10.0-50.0 Monocytes % (Manual) 14 H 0-12 Eosinophils % (Manual) 0 0-7 Basophils % (Manual) 0 0.0-2.0 Metamyelocytes % (manual) 4 Myelocytes % (Manual) 3 Promyelocytes % (Manual) 0 Blast Cells % (Manual) 2 Nucleated Red Blood Cells 5.0 % Reactive Lymphocytes 0 Platelet Estimate Decreased Large Platelets Few Polychromasia Slight Anisocytosis (manual) Slight Microcytosis Slight Tear Drop Cells Few Sodium Level 146 H 136-145 mmol/L Potassium Level 3.8 3.5-5.1 mmol/L Chloride Level 112 H 98-107 mmol/L Carbon Dioxide Level 25 20-31 mmol/L Anion Gap 9 5-15 Blood Urea Nitrogen 26 H 9-23 mg/dL Creatinine 1.05 0.700-1.30 mg/dL Glomerular Filtration Rate Calc 76 >90 mL/min BUN/Creatinine Ratio 24.8 H 10.0-20.0 Serum Glucose 136 H 74-106 mg/dL Lactic Acid Level 2.0 0.4-2.0 mmol/L Calcium Level 8.2 L 8.7-10.4 mg/dL Total Bilirubin 0.7 0.2-1.0 mg/dL Aspartate Amino Transferase (AST) 38 13-40 U/L Alanine Aminotransferase (ALT) 11 7-40 U/L Alkaline Phosphatase 210 H 46-116 U/L Total Protein 6.4 5.7-8.2 g/dL Albumin 3.5 3.2-4.8 g/dL Urine Color Light-yellow Yellow Urine Clarity Clear Clear Urine pH 6.0 5.0-9.0 Urine Specific [place] 1.018 1.001-1.035 Urine Protein 1+ H Negative Urine Ketones Negative Negative Urine Blood Negative Negative /uL Urine Nitrite Negative Negative Urine Bilirubin Negative Negative Urine Urobilinogen Normal Negative mg/dL Urine Leukocyte Esterase Negative Negative /uL Urine RBC None seen 0 - 3 /hpf Urine Microscopic WBC < 1 0-3 /HPF Urine Squamous Epithelial Cells None seen <5 /hpf Urine Bacteria None seen None Seen /hpf Urine Hyaline Casts Few 0 - 2 /lpf Urine Glucose Normal Normal mg/dL [place] [id number] Ph: [phone] DIAGNOSTIC IMAGING Diagnostic Imaging Report : [id number] Signed PATIENT: JOÃO STANTON ACCT: [id number] UNIT: [id number] : 1955 LOC: ER ROOM / BED: / AGE / SEX: 69 / M ADM STATUS: REG ER SERVICE ORDERING PHYSICIAN: GARY MCKINLEY DO PROCEDURE(s): CXRP - CHEST PORTABLE REASON: gen weak ORDER NUMBER(s): [id number], ACCESSION NUMBER(s): [id number] EXAM: XY CHEST PORTABLE TECHNIQUE: Single frontal chest radiograph CLINICAL HISTORY: gen star COMPARISON: None Findings/Impression: Frontal chest radiograph demonstrates no acute osseous or superficial soft tissue abnormalities. The trachea is midline. The cardiac silhouette and mediastinum are within normal limits. Possible right lower lung field airspace opacity versus summation artifact. No pneumothorax or pleural effusions. ATED BY: MARGE BEYER DO DICTATED DATE/TIME: 07/19/251733 SIGNED BY: MARGE BEYER DO SIGNED DATE/TIME: 07/19/251733 CC: Time of 1ST Reevaluation: 00:00 Reevaluation 1ST: Patient Education/Counseling: Diagnosis, Treatment Family Education/Counseling: Diagnosis, Treatment Comments MDM: patient presented with the above HPI.-generalized weakness--workup was initiated. patient was found with the above mentioned diagnosis. the following medications were ordered: please refer to order lists of meds and tests obtained by myself Dr. Mckinley. Patient ED course and VS have been stabilized. Patient has been reassessed in the ED and remained in a stable condition. Pertinent incidental findings were discussed with the patient and/or family. Patient/family voices understanding and is agreeable with plan. Patient has been observed in the ED adequate length of time to insure improvement/stability. Escalation of care considered: Consideration of escalation to observation or admission Patient was given fluids, blood transfusion was initiated. Patient was consented for blood transfusion. Patient was ADMITTED to the medicine team for further evaluation and treatment of their presentation. All the reports of any imaging studies that were ordered by myself were reviewed by myself. SEPSIS Sepsis Screen Date sepsis recognized/suspect: Jul 19, 2025 Time Sepsis recognized/suspect: 1624 Recent Procedure: No On Antibiotic Therapy: No Respiratory Rate >20: No Heart Rate >90: No Temp<36 C (96.8 F) or >38.3 C: No SBP <90 or MAP <65 mmHG: No New Acute Mental Status Change: No Is the patient on CPAP, BIPAP,: No Physician Orders Cyber Operator (07/19/25 ) Chest Portable (07/19/25 16:48) Electrocardigram (07/19/25 16:48) Park Catheters (07/19/25 ) Pulse Ox Cont Per Day (07/19/25 18:10) Vital Signs Date Time Temp Pulse Resp B/P (MAP) Pulse Ox O2 Delivery O2 Flow Rate FiO2 07/19/25 19:18 71 14 97 Room Air* 0 21 07/19/25 19:18 97.7 71 14 181/64 (103) 97 97.7 07/19/25 18:00 58 150/53 (85) 99 07/19/25 17:26 66 18 98 Room Air* 0 21 07/19/25 16:50 97.9 66 18 178/63 (101) 98 97.9 07/19/25 16:25 97.0 66 16 159/66 98 97.0 07/19/25 16:24 66 Laboratory Tests Test 07/19/25 17:36 Lactic Acid Level 2.0 mmol/L (0.4-2.0) White Blood Count 6.6 10^3/uL (4.4-10.8) Departure 1 Departure Time of Disposition: 18:10 Impression: Primary Impression: Symptomatic anemia Additional Impression: Thrombocytopenia Disposition: 09 ADMITTED INPATIENT Admit to: Tele Condition: Guarded Discharged With: Self, Relative Critical Care Note Critical Care Time?: Yes (35 min-critical care time only) I personally scribed for GARY MCKINLEY DO ([email or web address]) on 07/19/25 at 17:08. Electronically submitted by Zhane Watts ([facility] [place] I personally scribed for GARY MCKINLEY DO ([email or web address]) on 07/19/25 at 17:20. Electronically submitted by Zhane Watts ([facility] I personally scribed for GARY MCKINLEY DO ([email or web address]) on 07/19/25 at 17:30. Elect ronically submitted by Zhane Watts ([facility] [place]). I personally scribed for GARY MCKINLEY DO ([email or web address]) on 07/19/25 at 17:32. E lectronically submitted by Zhane Watts ([facility] [place]). I personally scribed for GARY MCKINLEY DO ([email or web address]) on 07/19/25 at 21:49. Electronically submitted by Zhane Watts ([facility]). GARY MCKINLEY DO Jul 19, 2025 17:08
[2025-07-19 17:26] VITALS: PULSE 66; RESP 18; O2SAT 98
--- NOTE | 2025-07-19 17:35 | DVH ---
EXAM: XY CHEST PORTABLE TECHNIQUE: Single frontal chest radiograph CLINICAL HISTORY: gen weak COMPARISON: None Findings/Impression: Frontal chest radiograph demonstrates no acute osseous or superficial soft tissue abnormalities. The trachea is midline. The cardiac silhouette and mediastinum are within normal limits. Possible right lower lung field airspace opacity versus summation artifact. No pneumothorax or pleural effusions.
[2025-07-19 17:49] LABS: Hemoglobin 7.2 g/dL (13.5-17.5)
[2025-07-19 17:50] LABS: Hematocrit 21.3 % (41.0-53.0); Mean Corpuscular Hemoglobin 26.4 pg (28.0-32.0); Mean Corpuscular Volume 77.8 fL (80.0-100.0)
[2025-07-19 17:53] LABS: Urine Protein, UAD 1+ (Negative)
[2025-07-19 18:05] LABS: Alanine Aminotransferase 11 U/L (7-40); Albumin 3.5 g/dL (3.2-4.8); Anion Gap 9 (5-15); BUN/Creatinine Ratio 24.8 (10.0-20.0); Carbon Dioxide 25 mmol/L (20-31); Potassium 3.8 mmol/L (3.5-5.1); Total Protein 6.4 g/dL (5.7-8.2)
[2025-07-19 18:06] LABS: Bilirubin, Total 0.7 mg/dL (0.2-1.0)
[2025-07-19 18:12] LABS: Alkaline Phosphatase 210 U/L (46-116); Blood Urea Nitrogen 26 mg/dL (9-23); Calcium 8.2 mg/dL (8.7-10.4); Chloride 112 mmol/L (98-107); Glucose 136 mg/dL (74-106); Sodium 146 mmol/L (136-145)
[2025-07-19] MEDS: SODIUM CHLORIDE 0.9% 1,000 ML IV ONE (18:30)
[2025-07-19 18:34] LABS: Total Cells Counted 100.0 (100)
[2025-07-19 18:36] LABS: Nucleated Red Blood Cells % 5.0 %
[2025-07-19 18:39] LABS: Anisocytosis Slight; Polychromasia Slight; Tear Drop Cells FEW
[2025-07-19 19:18] VITALS: PULSE 71; RESP 14; O2SAT 97
[2025-07-19 20:10] LABS: Hematocrit 19.3 % (41.0-53.0)
[2025-07-19 20:13] LABS: Hemoglobin 6.6 g/dL (13.5-17.5)
[2025-07-19] MEDS ORDERED: NITROGLYCERIN 0.4 MG SL TAB SL PRN (21:00)
[2025-07-19] MEDS ORDERED: HYDROcodone-ACET 5/325MG TAB PO PRN (21:00)
[2025-07-19] MEDS ORDERED: ACETAMINOPHEN 325 MG TAB PO PRN (21:00)
[2025-07-19] MEDS ORDERED: ONDANSETRON HCL 4 MG/2 ML VIAL IV PRN (21:00)
[2025-07-19] MEDS ORDERED: MORPHINE SULFATE INJ 2 MG/ml SYRG IV PRN ×2 (21:00)
[2025-07-19] MEDS: SODIUM CHLORIDE 0.9% 1,000 ML IV SCH (21:00)
[2025-07-19 21:54] LABS: INR 1.09 (0.9-1.15); Partial Thromboplastin Time 30.4 SEC (24.5-34.5); Prothrombin Time 11.5 sec (9.3-11.8)
[2025-07-19 22:05] VITALS: BP 176/60; PULSE 71; RESP 16; TEMP 97.7
[2025-07-19 22:14] VITALS: BP 167/62; PULSE 75; RESP 14; TEMP 97.7
[2025-07-19 22:29] VITALS: BP 176/58; PULSE 76; RESP 16; TEMP 97.6
[2025-07-20] VITALS (16 sets, daily range): BP systolic 138–174; BP diastolic 51–79; PULSE 55–73; RESP 16–22; TEMP 97.5–99.6; O2SAT 96–99
--- NOTE | 2025-07-20 05:45 | DVHHPRES ---
History of Present Illness Resident Creating Document: BABITA FERRIS RESIDENT History of Present Illness Tom Rangel is a 69-year-old male with past medical history of chronic anemia, myelofibrosis, hyperlipidemia, hypertension, dementia, TIAs, hyperlipidemia who came to the ED from [facility] with complaint of generalized weakness, has been hospitalized multiple times before for symptomatic anemia. Patient is alert to person but not to time and place. Patient is mostly nonverbal, poor historian. As per family, patient usually requires blood transfusions when he gets weak due to his myelofibrosis. 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 The patient's hemoglobin on is 6.4 and was given 2 units of PRBC. patient is admitted to follow up on labs in a.m. chest x-ray showed Possible right lower lung field airspace opacity versus summation artifact. Patient presented with hypertension and was given Amplodipine 10 Mg. Past Surgical history: Denies Family history: Reviewed, noncontributory Personal history: Family denies any smoking, drugs, alcohol use Please follow up with patient regarding patient's condition Review of Systems Constitutional: Yes: Weakness, Malaise; No: Fever, Chills, Sweats, Other Eyes: No: Pain, Vision change, Conjunctivae inflammation, Eyelid inflammation, Other, Redness ENT: No: Ear pain, Ear discharge, Nose pain, Nose discharge, Nose congestion, Mouth pain, Mouth swelling, Throat pain, Throat swelling, Other Respiratory: No: Cough, Dry, Shortness of breath, SOB with excertion, Wheezing, Hemoptysis, Pleuritic Pain, Sputum, Wheezing, Other Cardiovascular: No: Chest Pain, Palpitations, Orthopnea, Paroxysmal Noc. Dyspnea, Edema, Lt Headedness, Other Gastrointestinal: No: Nausea, Vomiting, Abdominal Pain, Diarrhea, Constipation, Melena, Hematochezia, Other Genitourinary: No Dysuria, No Frequency, No Incontinence, No Hematuria, No Retention, No Other Musculoskeletal: No: other, neck pain, shoulder pain, arm pain, back pain, hand pain, leg pain, foot pain Skin: No: Rash, Lesions, Jaundice, Bruising, Other Neurological: No: Weakness, Numbness, Incoordination, Change in speech, Confusion, Seizures, Other Allergies: Coded Allergies: Morphine (Verified Allergy, Unknown, 06/22/25) Medications Current Medications Medications Dose Ordered Sig/Barron Route Start Time Stop Time Status Last Admin Dose Admin Sodium Chloride 1,000 ml @ 60 mls/hr [id number] IV 07/19/25 21:00 07/19/25 21:00 60 MLS/HR Acetaminophen 325 mg Q4HP PRN PO 07/19/25 21:00 Acetaminophen/ Hydrocodone Bitart 1 tab Q4HP PRN PO 07/19/25 21:00 Ondansetron HCl 4 mg Q4HP PRN IV 07/19/25 21:00 Morphine Sulfate 2 mg Q4HPRN PRN IV 07/19/25 21:00 Hold Nitroglycerin 0.4 mg Q5MINP PRN SL 07/19/25 21:00 Morphine Sulfate 2 mg Q30M PRN IV 07/19/25 21:00 Hold Amlodipine Besylate 10 mg DAILY PO 07/20/25 10:00 Exam Vital Signs Vital Signs Date Time Temp Pulse Resp B/P (MAP) Pulse Ox O2 Delivery O2 Flow Rate FiO2 07/20/25 05:35 98.0 64 16 169/79 98.0 07/20/25 05:07 97 Room Air* 0 21 Exam Physical examination: General Appearance: Alert, Oriented X1, Cooperative, No acute distress, Appears PALE, weak HEENT: Atraumatic, PERRLA, EOMI, Mucous membrane moist/pink Respiratory: Clear to auscultation, Normal air movement Cardiovascular: Regular rate, Normal S1, Normal S2, No murmurs, no chest wall tenderness Abdominal: Normal bowel sounds, Soft, No tenderness, No hepatospenomegaly, No masses. Park catheter with yellow urine in bag Extremities: No clubbing, No cyanosis, No edema, Normal pulses, No tenderness/swelling Skin: No rashes, No breakdown, No significant lesion Neuro: Normal gait, Normal speech, Strength at 5/5 X4 ext, Normal tone, Sens ation intact, Cranial nerves 3-12 NL, Reflexes 2+ Psych/Mental Status: Mental status NL, Mood NL On Rectal exam no masses were palpated and no blood seen on finger Labs/Xrays Labs Test 07/19/25 21:10 07/19/25 20:02 07/19/25 17:36 07/19/25 17:23 Range/Units Prothrombin Time 11.5 9.3-11.8 sec Prothrombin Time INR 1.09 0.9-1.15 Activated Partial Thromboplast Time 30.4 24.5-34.5 SEC Troponin I High Sensitivity 5 </=54 ng/L Hemoglobin 6.6 *L 13.5-17.5 g/dL Hematocrit 19.3 L 41.0-53.0 % White Blood Count 6.6 4.4-10.8 10^3/uL Red Blood Count 2.73 L 4.5-5.90 10^6/uL Mean Corpuscular Volume 77.8 L 80.0-100.0 fL Mean Corpuscular Hemoglobin 26.4 L 28.0-32.0 pg Mean Corpuscular Hemoglobin Concent 33.9 32.0-36.0 g/dL Red Cell Distribution Width 20.7 H 11.8-14.3 % Platelet Count 106 L 140-450 10^3/uL Mean Platelet Volume 7.8 6.9-10.8 fL Neutrophils (%) (Auto) 37.0-80.0 % Lymphocytes (%) (Auto) 10.0-50.0 % Monocytes (%) (Auto) 0.0-12.0 % Basophils (%) (Auto) 0.0-2.0 % Neutrophils # (Auto) 1.6-8.6 10 ^3/uL Lymphocytes # (Auto) 0.4-5.4 10 ^3/uL Monocytes # (Auto) 0-1.3 10 ^3/uL Differential Total Cells Counted 100.0 100 Neutrophils % (Manual) 33 L 37.0-80.0 Band Neutrophils % (Manual) 10 Lymphocytes % (Manual) 34 10.0-50.0 Monocytes % (Manual) 14 H 0-12 Eosinophils % (Manual) 0 0-7 Basophils % (Manual) 0 0.0-2.0 Metamyelocytes % (manual) 4 Myelocytes % (Manual) 3 Promyelocytes % (Manual) 0 Blast Cells % (Manual) 2 Nucleated Red Blood Cells 5.0 % Reactive Lymphocytes 0 Platelet Estimate Decreased Large Platelets Few Polychromasia Slight Anisocytosis (manual) Slight Microcytosis Slight Tear Drop Cells Few Sodium Level 146 H 136-145 mmol/L Potassium Level 3.8 3.5-5.1 mmol/L Chloride Level 112 H 98-107 mmol/L Carbon Dioxide Level 25 20-31 mmol/L Anion Gap 9 5-15 Blood Urea Nitrogen 26 H 9-23 mg/dL Creatinine 1.05 0.700-1.30 mg/dL Glomerular Filtration Rate Calc 76 >90 mL/min BUN/Creatinine Ratio 24.8 H 10.0-20.0 Serum Glucose 136 H 74-106 mg/dL Lactic Acid Level 2.0 0.4-2.0 mmol/L Calcium Level 8.2 L 8.7-10.4 mg/dL Total Bilirubin 0.7 0.2-1.0 mg/dL Aspartate Amino Transferase (AST) 38 13-40 U/L Alanine Aminotransferase (ALT) 11 7-40 U/L Alkaline Phosphatase 210 H 46-116 U/L Total Protein 6.4 5.7-8.2 g/dL Albumin 3.5 3.2-4.8 g/dL Urine Color Light-yellow Yellow Urine Clarity Clear Clear Urine pH 6.0 5.0-9.0 Urine Specific Energy 1.018 1.001-1.035 Urine Protein 1+ H Negative Urine Ketones Negative Negative Urine Blood Negative Negative /uL Urine Nitrite Negative Negative Urine Bilirubin Negative Negative Urine Urobilinogen Normal Negative mg/dL Urine Leukocyte Esterase Negative Negative /uL Urine RBC None seen 0 - 3 /hpf Urine Microscopic WBC < 1 0-3 /HPF Urine Squamous Epithelial Cells None seen <5 /hpf Urine Bacteria None seen None Seen /hpf Urine Hyaline Casts Few 0 - 2 /lpf Urine Glucose Normal Normal mg/dL SEPSIS Sepsis Screen Date sepsis recognized/suspect: Jul 19, 2025 Time Sepsis recognized/suspect: 1917 Recent Procedure: No On Antibiotic Therapy: No Respiratory Rate >20: No Heart Rate >90: No Temp<36 C (96.8 F) or >38.3 C: No SBP <90 or MAP <65 mmHG: No New Acute Mental Status Change: No Is the patient on CPAP, BIPAP,: No Physician Orders Amlodipine Tablet (Norvasc Tablet) (07/20/25 10:00) * Wound Consult (07/20/25 ) Vital Signs Date Time Temp Pulse Resp B/P (MAP) Pulse Ox O2 Delivery O2 Flow Rate FiO2 07/20/25 05:35 98.0 64 16 169/79 98.0 07/20/25 05:07 65 16 97 Room Air* 0 21 07/20/25 02:45 98.5 62 19 148/63 98.5 07/20/25 02:30 61 20 138/51 (80) 95 07/20/25 02:00 98.8 62 22 138/51 98.8 07/20/25 01:05 99.6 73 20 168/63 (98) 98 99.6 07/20/25 01:05 99.6 73 20 168/63 99.6 07/20/25 01:04 71 16 156/59 (91) 99 07/20/25 00:26 73 18 177/62 (100) 98 07/20/25 00:00 75 07/19/25 23:30 187/60 07/19/25 22:43 78 13 168/75 (106) 97 07/19/25 22:29 97.6 76 16 176/58 97.6 07/19/25 22:14 97.7 75 14 167/62 97.7 07/19/25 22:05 97.7 71 16 176/60 97.7 07/19/25 21:59 97.6 75 18 176/60 (98) 99 97.6 Medications Medications Dose Ordered Sig/Barron Route Start Time Stop Time Status Last Admin Dose Admin Amlodipine Besylate 10 mg ONCE ONCE PO 07/19/25 23:30 07/19/25 23:31 DC 07/19/25 23:30 10 MG Sodium Chloride 1,000 ml @ 60 mls/hr [id number] IV 07/19/25 21:00 07/19/25 21:00 60 MLS/HR Sodium Chloride 1,000 ml @ 1,000 mls/hr Q1H ONCE IV 07/19/25 18:15 07/19/25 19:14 DC 07/19/25 18:30 1,000 MLS/HR Assessment/Plan Assessment/Plan # Acute blood loss anemia: - Status post 2 PRBC, recheck hemoglobin in a.m. - iron panel, pending - on Rectal Exam no masses, or blood was observed on the finger - stool occult blood - transfuse if hemoglobin less than 7 # Mild to moderate malnutrition # thrombocytopenia mild to moderate, monitor lab # history of myelofibrosis, cont o/p f/u # history of hypertension: Continue home meds # history of hyperlipidemia: Continue home meds # dementia : continue memantine # history of AAA # History of TIAs # primary insomnia # history of COPD: Goals of care addressed with the patient for more than 27 minutes: Full code status Case discussed with , patient and nurse Plan discussed with: Patient My Orders Orders - BABITA FERRIS RESIDENT Procedure Category Date Status Time Admit ADMIT 07/19/25 Transmitted 20:54 Allergies RONAN 07/19/25 In Process 20:54 Code Status CODE 07/19/25 Transmitted 20:54 Sodium Chloride 0.9% PHA 07/19/25 In Process 21:00 Acetaminophen Tablet PHA 07/19/25 In Process (Tylenol Tablet) 21:00 Ondansetron Hcl PHA 07/19/25 In Process (Zofran) 21:00 Complete Blood Count LAB 07/20/25 Logged 04:00 Comprehensive LAB 07/20/25 Logged Metabolic Panel 04:00 Npo (Nothing By DIET 07/20/25 Transmitted Mouth) Diet Breakfast Condition: Serious RONAN 07/19/25 In Process 20:54 Morphine Sulfate PHA 07/19/25 In Process Injection 21:00 Nitroglycerin PHA 07/19/25 In Process Sublingual (Ntrostat 21:00 Morphine Sulfate PHA 07/19/25 In Process Injection 21:00 Oxygen By Nasal RT 07/19/25 Transmitted Cannula 20:54 Stat Ekg For Chest RONAN 07/19/25 In Process Pain 20:54 Notify Of Changes RONAN 07/19/25 In Process From Base 20:54 Airconditioning Engineer For [facility] 07/19/25 In Process 24 Hours 20:54 Emergency Dysrhythmia RONAN 07/19/25 In Process Protocol 20:54 Rhythm Strips Once RONAN 07/19/25 In Process Every Shift 20:54 Hydrocodone-Acet PHA 07/19/25 In Process 5/325mg Tab ([place] 21:00 Airconditioning Engineer ORDERS 07/19/25 Transmitted 21:04 Urinalysis LAB 07/19/25 Logged 21:11 Drug Screen LAB 07/19/25 Logged 21:11 Amlodipine Tablet PHA 07/20/25 In Process (Norvasc Tablet) 10:00 * Wound Consult CONS 07/20/25 Transmitted Date of Service: Jul 20, 2025 Billing Provider: SHANNON BECKETT MD Common Visit Codes: [id number] INP/OBS CARE (HIGH) Secondary Visit Codes: [id number] CARE PLAN 30 MINUTES BABITA FERRIS RESIDENT Jul 20, 2025 05:45 CELSO JOHNSON RESIDENT Jul 20, 2025 09:21
[2025-07-20 08:44] LABS: Hematocrit 28.4 % (41.0-53.0); Mean Corpuscular Hemoglobin 28.9 pg (28.0-32.0); Mean Corpuscular Volume 84.5 fL (80.0-100.0)
[2025-07-20 08:45] LABS: Hemoglobin 9.7 g/dL (13.5-17.5); Nucleated Red Blood Cells % 6.6 %
[2025-07-20 08:55] LABS: Alanine Aminotransferase 11 U/L (7-40); Anion Gap 9 (5-15); BUN/Creatinine Ratio 24.4 (10.0-20.0); Blood Urea Nitrogen 19 mg/dL (9-23); Carbon Dioxide 23 mmol/L (20-31); Glucose 90 mg/dL (74-106); Potassium 3.6 mmol/L (3.5-5.1); Sodium 144 mmol/L (136-145); Total Protein 5.7 g/dL (5.7-8.2)
[2025-07-20 08:56] LABS: Bilirubin, Total 0.8 mg/dL (0.2-1.0)
[2025-07-20 08:57] LABS: Albumin 3.1 g/dL (3.2-4.8); Alkaline Phosphatase 188 U/L (46-116); Calcium 8.4 mg/dL (8.7-10.4); Chloride 112 mmol/L (98-107)
[2025-07-20] MEDS: MEMANTINE HCL 5 MG TAB PO SCH (10:00)
[2025-07-20] MEDS: PANTOPRAZOLE 40 MG/10 ML VIAL INJ IV SCH (10:00)
[2025-07-20] MEDS: ALBUTEROL SULF 2.5 MG/0.5ML(0.5%) NEB SOLN NEB SCH (11:42)
[2025-07-20] MEDS: Ensure HIGH Protein Chocolate 8oz Bottle PO SCH (12:00)
[2025-07-20] MEDS: hydrALAZINE HCL 20 MG/ML VL IV PRN (12:33)
--- NOTE | 2025-07-20 15:02 | DVHPNRES ---
Progress Note Date Seen: Jul 20, 2025 Resident Creating Document: PRINCESS PARSON RESIDENT Medical Necessity Reason Pt with a Central, PICC or Fol: No Subjective Review of Systems Patient is 69 years old male with past medical history of myelofibrosis, chronic anemia, dementia, hyperlipidemia, hypertension was brought in from [facility] due to generalized weakness. Patient was confused and lethargic. Initial lab workup revealed hemoglobin 6.6, MCV 77.8, platelets 106, RDW 20.7, lactic acid 2.0, alkaline phosphatase 210. Stool for occult blood test negative. Chest x-ray right lower lung opacity questionable. Patient is a poor historian details of the history could not be obtained. At the ER patient had blood transfusion. Provider spoke to patient's Elly Malone, , reported he usually gets more confusion than usual when he needs blood transfusion, after blood transfusion patient is more alert and oriented and more active. is the power of trademark attorney. Expressed code status DNR for the patient. patient was seen at bedside, lethargic and tired looking, poorly verbal. Status post blood transfusion. Ordered speech therapy evaluation for swallowing as patient is confused. Provider had a discussion with the patient's regarding hospice care, Patient's Elly Malone, reported she does not want hospice care for has been at this moment. Review of other system could not be done as patient is confused, poorly communicative Objective vital signs Vital Sign Date Time Temp Pulse Resp B/P (MAP) Pulse Ox O2 Delivery O2 Flow Rate FiO2 07/20/25 12:47 97.5 59 16 161/68 (99) 96 97.5 07/20/25 11:43 Room Air 0.0 07/20/25 11:43 21 Total Intake and Output 07/19/25 07/19/25 07/20/25 15:00 23:00 07:00 Intake Total 1000 ml 1200 ml Balance 1000 ml 1200 ml medications Current Medications Medications Dose Ordered Sig/Barron Route Start Time Stop Time Status Last Admin Dose Admin Sodium Chloride 1,000 ml @ 60 mls/hr [id number] IV 07/19/25 21:00 07/19/25 21:00 60 MLS/HR Acetaminophen 325 mg Q4HP PRN PO 07/19/25 21:00 Acetaminophen/ Hydrocodone Bitart 1 tab Q4HP PRN PO 07/19/25 21:00 Ondansetron HCl 4 mg Q4HP PRN IV 07/19/25 21:00 Morphine Sulfate 2 mg Q4HPRN PRN IV 07/19/25 21:00 Hold Nitroglycerin 0.4 mg Q5MINP PRN SL 07/19/25 21:00 Morphine Sulfate 2 mg Q30M PRN IV 07/19/25 21:00 Hold Pantoprazole Sodium 40 mg BID IV 07/20/25 10:00 Albuterol 2.5 mg Q6HWA NEB 07/20/25 12:00 07/20/25 11:42 2.5 MG Enteral Nutritional Formula 240 ml TIDWM PO 07/20/25 12:00 Zolpidem Tartrate 5 mg HSPRN PRN PO 07/20/25 09:00 Atorvastatin Calcium 40 mg HS PO 07/20/25 22:00 Amlodipine Besylate 5 mg DAILY PO 07/20/25 10:00 Memantine 5 mg Q12HR PO 07/20/25 10:00 Nifedipine 30 mg DAILY PO 07/20/25 10:00 Hydralazine HCl 10 mg Q6HP PRN IV 07/20/25 12:30 07/20/25 12:33 10 MG Examination General examination- patient is tired looking, lethargic, confused, pale looking HEENT- PEERLA, no acute nasal discharge Cardiovascular- S1-S2 audible, rate and rhythm regular, no murmur Respiratory- CTAB, no wheeze or rhonchi Gastrointestinal-nontender, bowel sound+. Nondistended Musculoskeletal-no acute joint swelling or tenderness or redness Lower extremity- muscle weakness bilaterally, Neurological- cranial nerves intact, no acute dysarthria or dysphagia Psychiatry-AAOX1 Skin- bilateral upper extremity purpura, lower extremity skin tear laboratory and microbiology Laboratory Tests 07/20/25 08:15 Test 07/20/25 08:15 Range/Units Serum Glucose 90 74-106 mg/dL Problem List/Assessment/Plan Problem List/Assessment/Plan Assessment and plan-provider spoke with the patient's . is the power o f trademark attorney. Expressed code status DNR for the patient. # metabolic encephalopathy likely due to severe anemia, rule out underlying infection -status post blood transfusion, -continue monitoring clinically -repeat CBC, CMP # severe anemia, rule out blood loss anemia # myelofibrosis # thrombocytopenia -status post blood transfusion -repeat CBC, CMP # protein calorie malnutrition -order dietary consult # hypertension with elevated blood pressure # hyperlipidemia -continue nifedipine 30 mg p.o. -amlodipine 5 mg p.o. daily -atorvastatin 40 mg p.o. qhs -hydralazine 10 mg PRN q.6h # dementia -monitor mental status -avoid dehydration and constipation #history of AAA # History of TIAs # primary insomnia # history of COPD: Goals of care, Code status DNR ; discussed with >15 minutes PUD prophylaxis: Pantoprazole DVT prophylaxis: SCD Plan discussed with Dr. Burnett , nursing staff, Total time spent on patient evaluation, chart review, assessment and plan, discussion discussion >35 minutes Plan discussed with: Patient, Spouse, Other (RN) My Orders My Orders Orders - PRINCESS PARSON Procedure Category Date Status Time Hemoglobin A1c LAB 07/20/25 In Process 09:34 Vitamin B12 LAB 07/20/25 Logged 11:01 Folate (Folic Acid) LAB 07/20/25 Logged 11:01 * Swallow Request ST 07/20/25 Transmitted 12:16 Hydralazine Injection PHA 07/20/25 In Process (Apresoline Inject 12:30 Cover Wound With Foam RONAN 07/20/25 In Process Dressing 10:42 Date of Service: Jul 20, 2025 Billing Provider: YANNA OBRIEN MD Common Visit Codes: [id number] INP/OBS CARE(HIGH) PRINCESS PARSON Jul 20, 2025 15:02 YANNA OBRIEN MD Jul 22, 2025 22:25
[2025-07-20 15:48] LABS: Hematocrit 30.7 % (41.0-53.0); Hemoglobin 10.5 g/dL (13.5-17.5)
[2025-07-20 16:07] LABS: INR 1.12 (0.9-1.15); Partial Thromboplastin Time 28.8 SEC (24.5-34.5); Prothrombin Time 11.7 sec (9.3-11.8)
[2025-07-20] MEDS: ATORVASTATIN 20 MG TAB PO SCH (21:13)
[2025-07-20] MEDS: ZOLPIDEM TARTRATE 5 MG TAB PO PRN (21:28)
[2025-07-21] VITALS (8 sets, daily range): BP systolic 134–153; BP diastolic 71–82; PULSE 61–90; RESP 16–20; TEMP 96.8–98.5; O2SAT 95–99
--- NOTE | 2025-07-21 10:23 | DVHPNRES ---
Progress Note Date Seen: Jul 21, 2025 Resident Creating Document: OSORIO TRUONG RESIDENT Medical Necessity Reason Pt with a Central, PICC or Fol: No Objective vital signs Vital Sign Date Time Temp Pulse Resp B/P (MAP) Pulse Ox O2 Delivery O2 Flow Rate FiO2 07/21/25 10:02 134/82 07/21/25 09:00 97.6 67 20 96 97.6 07/21/25 08:00 Room Air* 0 21 Total Intake and Output 07/20/25 07/20/25 07/21/25 15:00 23:00 07:00 Intake Total 240 ml 300 ml Output Total 752 ml 451 ml Balance -512 ml -151 ml medications Current Medications Medications Dose Ordered Sig/Barron Route Start Time Stop Time Status Last Admin Dose Admin Sodium Chloride 1,000 ml @ 60 mls/hr [id number] IV 07/19/25 21:00 07/20/25 14:56 60 MLS/HR Acetaminophen 325 mg Q4HP PRN PO 07/19/25 21:00 Acetaminophen/ Hydrocodone Bitart 1 tab Q4HP PRN PO 07/19/25 21:00 Ondansetron HCl 4 mg Q4HP PRN IV 07/19/25 21:00 Morphine Sulfate 2 mg Q4HPRN PRN IV 07/19/25 21:00 Hold Nitroglycerin 0.4 mg Q5MINP PRN SL 07/19/25 21:00 Morphine Sulfate 2 mg Q30M PRN IV 07/19/25 21:00 Hold Pantoprazole Sodium 40 mg BID IV 07/20/25 10:00 07/21/25 10:01 40 MG Albuterol 2.5 mg Q6HWA NEB 07/20/25 12:00 07/21/25 06:43 2.5 MG Enteral Nutritional Formula 240 ml TIDWM PO 07/20/25 12:00 07/21/25 07:55 240 ML Zolpidem Tartrate 5 mg HSPRN PRN PO 07/20/25 09:00 07/20/25 21:28 5 MG Atorvastatin Calcium 40 mg HS PO 07/20/25 22:00 07/20/25 21:13 40 MG Amlodipine Besylate 5 mg DAILY PO 07/20/25 10:00 07/21/25 10:02 5 MG Memantine 5 mg Q12HR PO 07/20/25 10:00 07/21/25 10:02 5 MG Nifedipine 30 mg DAILY PO 07/20/25 10:00 07/21/25 10:02 30 MG Hydralazine HCl 10 mg Q6HP PRN IV 07/20/25 12:30 07/21/25 06:28 10 MG Examination General examination- patient is tired looking, lethargic, confused, pale looking HEENT- PEERLA, no acute nasal discharge Cardiovascular- S1-S2 audible, rate and rhythm regular, no murmur Respiratory- CTAB, no wheeze or rhonchi Gastrointestinal-nontender, bowel sound+. Nondistended Musculoskeletal-no acute joint swelling or tenderness or redness Lower extremity- muscle weakness bilaterally, Neurological- cranial nerves intact, no acute dysarthria or dysphagia Psychiatry-AAOX1 Skin- bilateral upper extremity purpura, lower extremity skin tear laboratory and microbiology Laboratory Tests 07/20/25 15:36 07/20/25 08:15 Test 07/20/25 08:15 Range/Units Serum Glucose 90 74-106 mg/dL Problem List/Assessment/Plan Problem List/Assessment/Plan # metabolic encephalopathy likely due to severe anemia, rule out underlying infection -status post blood transfusion, -continue monitoring clinically -repeat CBC, CMP # severe anemia, rule out blood loss anemia # myelofibrosis # thrombocytopenia -status post blood transfusion -repeat CBC, CMP # protein calorie malnutrition -order dietary consult # hypertension with elevated blood pressure # hyperlipidemia -continue nifedipine 30 mg p.o. -amlodipine 5 mg p.o. daily -atorvastatin 40 mg p.o. qhs -hydralazine 10 mg PRN q.6h # dementia -monitor mental status -avoid dehydration and constipation #history of AAA # History of TIAs - continue home medication # primary insomnia # history of COPD: - not exacerbation - breathing treatment p.r.n. Goals of care discussed with patient's for 23 minutes: Code status DNR ; PUD prophylaxis: Pantoprazole DVT prophylaxis: SCD Plan discussed with OSORIO Rivera RESIDENT Jul 21, 2025 10:23
[2025-07-21 11:07] LABS: Hematocrit 31.6 % (41.0-53.0); Hemoglobin 10.6 g/dL (13.5-17.5); Mean Corpuscular Hemoglobin 28.6 pg (28.0-32.0); Mean Corpuscular Volume 85.8 fL (80.0-100.0)
[2025-07-21 11:15] LABS: Alanine Aminotransferase 11 U/L (7-40); Anion Gap 10 (5-15); BUN/Creatinine Ratio 27.2 (10.0-20.0); Blood Urea Nitrogen 22 mg/dL (9-23); Carbon Dioxide 21 mmol/L (20-31); Sodium 142 mmol/L (136-145)
[2025-07-21 11:16] LABS: Bilirubin, Total 0.8 mg/dL (0.2-1.0)
[2025-07-21 11:20] LABS: Albumin 3.1 g/dL (3.2-4.8); Alkaline Phosphatase 185 U/L (46-116); Calcium 8.0 mg/dL (8.7-10.4); Chloride 111 mmol/L (98-107); Glucose 135 mg/dL (74-106); Potassium 3.4 mmol/L (3.5-5.1); Total Protein 5.6 g/dL (5.7-8.2)
[2025-07-21 11:44] LABS: Total Cells Counted 100.0 (100)
--- NOTE | 2025-07-21 12:32 | DVHDSRES ---
Discharge Summary Date of Admission Resident Creating Document: OSORIO TRUONG RESIDENT Jul 19, 2025 at 20:54 Date of Discharge: Jul 21, 2025 Admitting Diagnosis Severe anemia Labs/Diagnostic Data: Laboratory Results Test 07/21/25 10:40 07/20/25 15:36 07/20/25 09:55 07/20/25 08:15 White Blood Count 5.6 10^3/uL (4.4-10.8) Red Blood Count 3.69 10^6/uL (4.5-5.90) Hemoglobin 10.6 g/dL (13.5-17.5) Hematocrit 31.6 % (41.0-53.0) Mean Corpuscular Volume 85.8 fL (80.0-100.0) Mean Corpuscular Hemoglobin 28.6 pg (28.0-32.0) Mean Corpuscular Hemoglobin Concent 33.4 g/dL (32.0-36.0) Red Cell Distribution Width 23.6 % (11.8-14.3) Platelet Count 85 10^3/uL (140-450) Mean Platelet Volume 7.7 fL (6.9-10.8) Neutrophils (%) (Auto) % (37.0-80.0) Lymphocytes (%) (Auto) % (10.0-50.0) Monocytes (%) (Auto) % (0.0-12.0) Basophils (%) (Auto) % (0.0-2.0) Neutrophils # (Auto) 10 ^3/uL (1.6-8.6) Lymphocytes # (Auto) 10 ^3/uL (0.4-5.4) Monocytes # (Auto) 10 ^3/uL (0-1.3) Differential Total Cells Counted 100.0 (100) Neutrophils % (Manual) 56 (37.0-80.0) Band Neutrophils % (Manual) 5 Lymphocytes % (Manual) 28 (10.0-50.0) Monocytes % (Manual) 11 (0-12) Eosinophils % (Manual) 0 (0-7) Basophils % (Manual) 0 (0.0-2.0) Metamyelocytes % (manual) 0 Myelocytes % (Manual) 0 Promyelocytes % (Manual) 0 Blast Cells % (Manual) 0 Reactive Lymphocytes 0 Platelet Estimate Decreased Sodium Level 142 mmol/L (136-145) Potassium Level 3.4 mmol/L (3.5-5.1) Chloride Level 111 mmol/L (98-107) Carbon Dioxide Level 21 mmol/L (20-31) Anion Gap 10 (5-15) Blood Urea Nitrogen 22 mg/dL (9-23) Creatinine 0.81 mg/dL (0.700-1.30) Glomerular Filtration Rate Calc 95 mL/min (>90) BUN/Creatinine Ratio 27.2 (10.0-20.0) Serum Glucose 135 mg/dL (74-106) Calcium Level 8.0 mg/dL (8.7-10.4) Total Bilirubin 0.8 mg/dL (0.2-1.0) Aspartate Amino Transferase (AST) 32 U/L (13-40) Alanine Aminotransferase (ALT) 11 U/L (7-40) Alkaline Phosphatase 185 U/L (46-116) Total Protein 5.6 g/dL (5.7-8.2) Albumin 3.1 g/dL (3.2-4.8) Prothrombin Time 11.7 sec (9.3-11.8) Prothrombin Time INR 1.12 (0.9-1.15) Activated Partial Thromboplast Time 28.8 SEC (24.5-34.5) Iron Level 102 ug/dL (65-175) Ferritin 1568.2 ng/mL (22-322) Vitamin B12 Level 464 pg/mL (211-911) Folic Acid 30.69 ng/mL (>5.38) Stool Occult Blood Negative (Negative) Stool Occult Blood Sample #3 (Negative) Eosinophils (%) (Auto) 0.1 % (0.0-7.0) Eosinophils # (Auto) 0 10 ^3/uL (0-0.8) Basophils # (Auto) 0.1 10 ^3/uL (0-0.2) Nucleated Red Blood Cells 6.6 % Reticulocyte Count (auto) 2.35 % (0.5-1.5) Hemoglobin A1c 5.6 % A1C (<5.7) Magnesium Level 2.3 mg/dL (1.6-2.6) Lactate Dehydrogenase 1091 U/L (120-246) Thyroid Stimulating Hormone (TSH) 1.69 uIU/mL (0.55-4.78) Test 07/19/25 21:10 07/19/25 17:36 07/19/25 17:23 Troponin I High Sensitivity 5 ng/L (</=54) Large Platelets Few Polychromasia Slight Anisocytosis (manual) Slight Microcytosis Slight Tear Drop Cells Few Lactic Acid Level 2.0 mmol/L (0.4-2.0) Urine Color Light-yellow (Yellow) Urine Clarity Clear (Clear) Urine pH 6.0 (5.0-9.0) Urine Specific [place] 1.018 (1.001-1.035) Urine Protein 1+ (Negative) Urine Ketones Negative (Negative) Urine Blood Negative /uL (Negative) Urine Nitrite Negative (Negative) Urine Bilirubin Negative (Negative) Urine Urobilinogen Normal mg/dL (Negative) Urine Leukocyte Esterase Negative /uL (Negative) Urine RBC None seen /hpf (0 - 3) Urine Microscopic WBC < 1 /HPF (0-3) Urine Squamous Epithelial Cells None seen /hpf (<5) Urine Bacteria None seen /hpf (None Seen) Urine Hyaline Casts Few /lpf (0 - 2) Urine Glucose Normal mg/dL (Normal) Other Laboratory Tests 07/21/25 10:40 Brief Hx & Hospital Course: Patient is 69 years old male with past medical history of myelofibrosis, chronic anemia, dementia, hyperlipidemia, hypertension was brought in from [facility] due to generalized weakness. Patient was confused and lethargic. Initial lab workup revealed hemoglobin 6.6, MCV 77.8, platelets 106, RDW 20.7, lactic acid 2.0, alkaline phosphatase 210. Stool for occult blood test negative. Chest x-ray right lower lung opacity questionable. Patient is a poor historian details of the history could not be obtained. At the ER patient had blood transfusion. Provider spoke to patient's Elly Malone, , reported he usually gets more confusion than usual when he needs blood transfusion, after blood transfusion patient is more alert and oriented and more active. is the power of rn disease management. Expressed code status DNR for the patient. Patient has history of MDS and his hemoglobin was 6.6 when he admitted, patient got transfused PRBC and today his hemoglobin is stable 10.2. Patient has advanced dementia and not eating properly. Patient meets hospice criteria, but his family (, who is his POA) refused hospice for now. Patient has no source of infection, no UTI or pneumonia noted. Patient is stable to transfer back to SNF [facility]. Continue ongoing care with regular diaper change, optimizing mutations, physical therapy if indicated, and periodic position change. Follow up with PCP as facility protocol. General examination- patient is tired looking, HEENT- PEERLA, no acute nasal discharge Cardiovascular- S1-S2 audible, rate and rhythm regular, no murmur Respiratory- CTAB, no wheeze or rhonchi Gastrointestinal-nontender, bowel sound+. Nondistended Musculoskeletal-no acute joint swelling or tenderness or redness Lower extremity- muscle weakness bilaterally, Neurological- cranial nerves intact, no acute dysarthria or dysphagia, A&O x1 Psychiatry-AAOX1 Skin- bilateral upper extremity purpura, lower extremity skin tear Condition at Discharge: Fair Final Diagnosis/Problems List # metabolic encephalopathy likely due to severe anemia, rule out underlying infection # severe anemia likely Due to MDS, rule out blood loss anemia # myelofibrosis/myelodysplastic syndrome # thrombocytopenia # protein calorie malnutrition # hypertension with elevated blood pressure # hyperlipidemia # dementia, most likely vascular dementia #history of AAA # History of TIAs # primary insomnia # history of COPD: Discharge Disposition: Snf Facility SNF Discharge Will this Physician continue t: No Discharge Instruct/Medications Diet: Regular Activity: No Restrictions, As Tolerated Follow Up/Referral: Follow up PCP as SNF protocol. Medications: Resume home medications Scheduled Amlodipine Besylate (Amlodipine Besylate), 1 TAB PO DAILY, (Reported) Atorvastatin Calcium (Atorvastatin Calcium), 1 TAB PO DAILY, (Reported) Clopidogrel Bisulfate (Clopidogrel), 1 TAB PO DAILY, (Reported) Folic Acid (Folic Acid), 1 TAB PO DAILY, (Reported) Memantine Hydrochloride (Memantine HCl), 1 TAB PO BID, (Reported) Miscellaneous Medications Potassium Chloride (Potassium Chloride Cr), 20 MEQ PO, (Reported) Discharge Statement: "Patient was advised to return to the ER or call 911 if any headaches, dizziness, shortness of breath, chest pain, abdominal pain, bleeding, fevers, or worsening of medical condition. Patient was counseled about treatment plan, medications, possible side effects, patientverbalized understanding. All questions were answered to the best of my ability. This discharge took greater then 30 minutes in planning, reviewing documentation, counseling the patient, and discussing with other team members." ASSESSMENT ASSESSMENT Assessment # metabolic encephalopathy likely due to severe anemia, rule out underlying infection # severe anemia likely Due to MDS, rule out blood loss anemia # myelofibrosis/myelodysplastic syndrome # thrombocytopenia # protein calorie malnutrition # hypertension with elevated blood pressure # hyperlipidemia # dementia, most likely vascular dementia #history of AAA # History of TIAs # primary insomnia # history of COPD: Date of Service: Jul 21, 2025 Billing Provider: YANNA OBRIEN MD Common Visit Codes: 59797-WPY/OBS DISCH DAY >30min OSORIO TRUONG RESIDENT Jul 21, 2025 12:32 YANNA OBRIEN MD Jul 22, 2025 22:58
== END 2025-07-21 17:56 | DRG 811 ==
LOC: ER 16:22 → EDBD 16:22 → OVERFLOW 20:54 → WEST WING 23:59
PROVIDERS: ADMIT Student in an Organized Health Care Education/Training Program; ATTEND Student in an Organized Health Care Education/Training Program
PROC: 30233N1 Transfusion of Nonautologous Red Blood Cells into Peripheral Vein, Percutaneous Approach (ICD-10-PCS; principal; 2025-07-19)
DX: D46.9 Myelodysplastic syndrome, unspecified (principal); G93.41 Metabolic encephalopathy; D62 Acute posthemorrhagic anemia; E44.0 Moderate protein-calorie malnutrition; Z68.1 Body mass index [BMI] 19.9 or less, adult; D75.81 Myelofibrosis; Z66 Do not resuscitate; D69.6 Thrombocytopenia, unspecified; E78.5 Hyperlipidemia, unspecified; I10 Essential (primary) hypertension; F51.01 Primary insomnia; J44.9 Chronic obstructive pulmonary disease, unspecified; F01.50 Vascular dementia, unspecified severity, without behavioral disturbance, psychotic disturbance, mood disturbance, and anxiety; Z86.73 Personal history of transient ischemic attack (TIA), and cerebral infarction without residual deficits; Z86.79 Personal history of other diseases of the circulatory system; Z88.5 Allergy status to narcotic agent
CPT/HCPCS: 36415; 36430; 71045; 80053; 81001; 82270; 82607; 82728; 82746; 83010; 83036; 83540; 83605; 83615; 83735; 84443; 84484; 85007; 85014; 85018; 85025; 85027; 85045; 85610; 85730; 86850; 86900; 86901; 86920; 87081; 94640; 96360; G0378; J2470

== ENCOUNTER 2025-08-16 15:28 | Inpatient (IN) | payer MEDICARE, MEDICAID ==
[2025-08-16] VITALS (7 sets, daily range): BP systolic 122–174; BP diastolic 57–84; PULSE 67–78; RESP 14–22; TEMP 97.4–100.1; O2SAT 98–99
[~2025-08-16] VITALS: Ht 175.3 cm; Wt 63.5 kg
[~2025-08-16 15:28] MED LIST changes: -ZOLP10TA6 PO
--- NOTE | 2025-08-16 15:38 | ED.PDOC ---
History of Present Illness HPI Comments 69-year-old male who presents to the ED via EMS with c/c of abnormal labs Patient presents from [facility] with EMS states patient was brought to the ED for abnormal lab of hemoglobin 6.4 Patient had labs which were drawn on 08/02/20 and facility received lab work on 08/06/25 hemoglobin of 6.4 EMS states they were called after patient started to complain of pain Patient denies any associated bleeding, denies any associated pain Patient is currently on Plavix Patient has a noted history of Alzheimer's dementia Patient is noted to be otherwise DNI/DNR patient was ED otherwise has stable vitals including blood pressure 132/66 respiratory rate 16 heart rate 62 temp 97.7 F and O2 saturation of 98% on room air Patient was discharged from [facility] on 07/22/2025 with the following discharge diagnoses: # metabolic encephalopathy likely due to severe anemia, rule out underlying infection. # severe anemia likely Due to MDS, rule out blood loss anemia# myelofibrosis/myelodysplastic syndrome# thrombocytopenia# protein calorie malnutrition# hypertension with elevated blood pressure# hyperlipidemia# dementia, most likely vascular dementia#history of AAA# History of TIAs# primary insomnia # history of COPD: PMHx: AAA, hypertension, hyperlipidemia, Alzheimer's dementia, 20 x TIAs, Past surgical history: Chronic stent Medications: Plavix Allergies: Morphine Social history: denies ETOH, denies tobacco use, denies drug use HPI: Poor Historian. REVIEW OF SYSTEMS: CONSTITUTIONAL: Denies acute: fever, diaphoresis, chills, generalized weakness. HEAD: Denies acute: headache, photophobia Eyes: Denies acute: Double vision, vision loss, eye pain, EARS: Denies acute: tinnitus, hearing loss, ear discharge, ear pain, THROAT: Denies acute: sore throat, swelling, difficulty swallowing , pain with swallowing, change in voice. NECK: Denies acute: neck pain, neck swelling, stiff neck. HEART: Denies acute : chest pain, palpitations, LUNGS: Denies acute: SOB, wheezing, cough, hemoptysis ABDOMEN: Denies acute: abdominal pain, Nausea, Vomiting, diarrhea, melena , hematemesis, hematochezia SKIN: Denies acute: rash, redness, lesions, itchiness. EXTREMITIES: Denies acute: calf pain, numbness, tingling, weakness, denies pain in extremity. Denies acute: Low back pain. Neuro: Denies acute: focal neurological deficit, motor or sensory focal neurological deficit, tremors, seizure like activity, confusion, dizziness, change in mental status, loss of bowel or bladder function, cauda equina like symptoms. : Denies acute: dysuria, hematuria, flank pain, increase in urinary frequency. PSYCH: Denies acute: hallucination, suicidal ideation, homicidal ideation. PHYSICAL EXAM: General: ---no-----acute distress, awake and alert. Head: normocephalic, atraumatic. Neck: supple, trachea is midline, no swelling. Throat: Normal phonation. Eyes: no purulent discharge, no proptosis, no icterus. Heart: regular rate, regular rhythm, no significant murmur appreciated. Lungs: no apparent respiratory distress, No wheezing, no rhonchi, no crackles. No stridors Clear to auscultation bilaterally. Abdomen: non tender to palpation, non distended, soft, no guarding, no rebound, + bowel sounds. Neuro: Awake, Alert, oriented to name, self, situation, follows commands GCS=15. Speech is normal. Skin: no petechia, no purpura, no cyanosis, noted-pale, not jaundice. Lower extremities: --no - Pitting edema no deformity, no focal swelling, no calf TTP. Makes eye contact. moves all four extremities. Face: no apparent facial droop. ED COURSE: DISCLAIMER: This medical document was created using an electronic medical record system with voice recognition software and computerized dictation system. Although this document has been carefully reviewed, there might still be some phonetic and typographical errors. Occasional wrong-word or "sound-alike" substitutions may have occurred due to the inherent limitations of voice recognition software. These areas are purely typographical due to imperfections of the software programs and do not reflect any compromise in the patient's medical care. Please read the chart carefully and recognize, using context, where these substitutions have occurred. Time Seen by MD: 16:01 Reviewed Notes: Medications, Allergies Allergies: Coded Allergies: Morphine (Verified Allergy, Unknown, 06/22/25) Home Meds Reported Medications Lactobacillus (Probiotic Acidophilus) 1 Cap Cap, 1 CAP PO BID, CAP 08/17/25 Cranberry Extract (Cranberry) 450 Mg Tab, 450 MG PO BID, TAB 08/17/25 Vitamin E (E1000) 1,000 Unit Cap, PO for 30 Days, CAP 08/17/25 Zinc Sulfate (Zinc Sulfate) 220 Mg Tab, 220 MG PO for 30 Days, TAB 08/17/25 Ascorbic Acid (Vitamin C 500 mg) 1 Tab Tab, 1 TAB PO BID, TAB 08/17/25 Zolpidem Tartrate (Ambien) 10 Mg Tab, 10 MG PO HSPRN PRN for FOR INSOMNIA, TAB 08/17/25 Potassium Chloride (POTASSIUM CHLORIDE CR) 10 Meq Tb, 20 MEQ PO, TAB 06/23/25 Amlodipine Besylate (Amlodipine Besylate) 10 Mg Tab, 1 TAB PO DAILY 06/23/25 Clopidogrel Bisulfate (CLOPIDOGREL) 75 Mg Tab, 1 TAB PO DAILY 06/23/25 Folic Acid (Folic Acid) 1 Mg Tab, 1 TAB PO DAILY 06/23/25 Memantine Hydrochloride (Memantine HCl) 5 Mg Tab, 1 TAB PO BID 06/23/25 Atorvastatin Calcium (ATORVASTATIN CALCIUM) 40 Mg Tab, 1 TAB PO DAILY 06/23/25 Information Source: Patient, Emergency Med Personnel Mode of Arrival: EMS Past Medical History PAST MEDICAL HISTORY: Anemia, Cancer, Dementia Surgical History: Unknown Family History Family History: Reviewed,noncontributory to illness Social History Smoker: Non-Smoker Alcohol: Denies ETOH Use Drugs: Denies Drug Use Lives In: Prison Was a procedure done? Was a procedure done?: No Differential Dx Considerations may include: GI bleed, anemia of chronic disease, X-Ray, Labs, Meds, VS Vital Signs Date Time Temp Pulse Resp B/P (MAP) Pulse Ox O2 Delivery O2 Flow Rate FiO2 08/16/25 19:20 97.4 70 14 174/62 97.4 08/16/25 19:00 99.5 73 15 154/57 99.5 08/16/25 18:17 76 18 169/55 (93) 100 08/16/25 16:00 69 17 176/66 (102) 99 08/16/25 16:00 69 17 99 Room Air* 0 21 08/16/25 15:30 97.7 62 16 132/66 98 97.7 Lab Test 08/16/25 15:46 Range/Units White Blood Count 7.1 4.4-10.8 10^3/uL Red Blood Count 2.23 L 4.5-5.90 10^6/uL Hemoglobin 6.2 *L 13.5-17.5 g/dL Hematocrit 18.4 L 41.0-53.0 % Mean Corpuscular Volume 82.6 80.0-100.0 fL Mean Corpuscular Hemoglobin 27.9 L 28.0-32.0 pg Mean Corpuscular Hemoglobin Concent 33.8 32.0-36.0 g/dL Red Cell Distribution Width 25.0 H 11.8-14.3 % Platelet Count 59 L 140-450 10^3/uL Mean Platelet Volume 7.9 6.9-10.8 fL Neutrophils (%) (Auto) 55.2 37.0-80.0 % Lymphocytes (%) (Auto) 31.5 10.0-50.0 % Monocytes (%) (Auto) 11.9 0.0-12.0 % Eosinophils (%) (Auto) 0.1 0.0-7.0 % Basophils (%) (Auto) 1.3 0.0-2.0 % Neutrophils # (Auto) 3.9 1.6-8.6 10 ^3/uL Lymphocytes # (Auto) 2.2 0.4-5.4 10 ^3/uL Monocytes # (Auto) 0.8 0-1.3 10 ^3/uL Eosinophils # (Auto) 0 0-0.8 10 ^3/uL Basophils # (Auto) 0.1 0-0.2 10 ^3/uL Nucleated Red Blood Cells 5.2 % Platelet Estimate Decreased Anisocytosis (manual) Moderate Sodium Level 151 H 136-145 mmol/L Potassium Level 4.1 3.5-5.1 mmol/L Chloride Level 114 H 98-107 mmol/L Carbon Dioxide Level 25 20-31 mmol/L Anion Gap 12 5-15 Blood Urea Nitrogen 23 9-23 mg/dL Creatinine 1.09 0.700-1.30 mg/dL Glomerular Filtration Rate Calc 73 >90 mL/min BUN/Creatinine Ratio 21.1 H 10.0-20.0 Serum Glucose 123 H 74-106 mg/dL Lactic Acid Level 1.5 0.4-2.0 mmol/L Calcium Level 8.4 L 8.7-10.4 mg/dL Total Bilirubin 0.8 0.2-1.0 mg/dL Aspartate Amino Transferase (AST) 30 13-40 U/L Alanine Aminotransferase (ALT) < 9 7-40 U/L Alkaline Phosphatase 179 H 46-116 U/L Troponin I High Sensitivity 4 </=54 ng/L Total Protein 6.3 5.7-8.2 g/dL Albumin 3.4 3.2-4.8 g/dL Time of 1ST Reevaluation: 00:00 Reevaluation 1ST: N/A Patient Education/Counseling: Other (Patient's history of Alzheimer's dementia) Family Education/Counseling: No Family Present Comments MDM: patient presented with the above HPI.---anemia---workup was initiated. patient was found with the above mentioned diagnosis. the following medications were ordered: please refer to order lists of meds and tests obtained by myself Dr. Rojas. Patient ED course and VS have been stabilized. Patient has been reassessed in the ED and remained in a stable condition. Pertinent incidental findings were discussed with the patient and/or family. Patient/family voices understanding and is agreeable with plan. Patient has been observed in the ED adequate length of time to insure improvement/stability. Escalation of care considered: Consideration of escalation to observation or admission Blood products transfusion were ordered. Consent was signed. Patient was ADMITTED to the medicine team for further evaluation and treatment of their presentation. All the reports of any imaging studies that were ordered by myself were reviewed by myself. SEPSIS Sepsis Screen Physician Orders Director [employer] Marketing [employer] (08/16/25 ) Obtain Consent For: (08/16/25 16:23) Admit (08/16/25 19:38) Vital Signs Date Time Temp Pulse Resp B/P (MAP) Pulse Ox O2 Delivery O2 Flow Rate FiO2 08/16/25 19:20 97.4 70 14 174/62 97.4 08/16/25 19:00 99.5 73 15 154/57 99.5 08/16/25 18:17 76 18 169/55 (93) 100 08/16/25 16:00 69 17 176/66 (102) 99 08/16/25 16:00 69 17 99 Room Air* 0 21 08/16/25 15:30 97.7 62 16 132/66 98 97.7 Laboratory Tests Test 08/16/25 15:46 Lactic Acid Level 1.5 mmol/L (0.4-2.0) White Blood Count 7.1 10^3/uL (4.4-10.8) Departure 1 Departure Time of Disposition: 16:24 Impression: Primary Impression: Anemia Additional Impression: Hypernatremia Disposition: ADMITTED INPATIENT Condition: Guarded Discharged With: Self Critical Care Note Critical Care Time?: Yes (35 min-critical care time only) I personally scribed for GARY ROJAS DO ([email or web address]) on 08/16/25 at 15:38. Electronically submitted by Zhane Watts (ANDREW). I personally scribed for GARY ROJAS DO ([email or web address]) on 08/16/25 at 16:05. Electro nically submitted by Zhane Watts (ANDREW). I personally scribed for GARY ROJAS DO ([email or web address]) on 08/16/25 at 16:24. Sheri ctronically submitted by Zhane Watts (ANDREW). I personally scribed for GARY ROJAS DO ([email or web address]) on 08/16/25 at 16:25. Electronically submitted by Zhane Watts (ANDREW). I personally scribed for GARY ROJAS DO ([email or web address]) on 08/16/25 at 16:32. Electronically submitted by Zhane Watts (ANDREW). I personally scribed for GARY ROJAS DO ([email or web address]) on 08/16/25 at 21:39. Electronically submitted by Zhane Watts ([facility] GARY ROJAS DO Aug 16, 2025 15:38
[2025-08-16 16:11] LABS: Hematocrit 18.4 % (41.0-53.0); Mean Corpuscular Hemoglobin 27.9 pg (28.0-32.0); Mean Corpuscular Volume 82.6 fL (80.0-100.0)
[2025-08-16 16:21] LABS: Nucleated Red Blood Cells % 5.2 %
[2025-08-16 16:22] LABS: Alanine Aminotransferase < 9 U/L (7-40); Albumin 3.4 g/dL (3.2-4.8); Alkaline Phosphatase 179 U/L (46-116); Anion Gap 12 (5-15); BUN/Creatinine Ratio 21.1 (10.0-20.0); Bilirubin, Total 0.8 mg/dL (0.2-1.0); Blood Urea Nitrogen 23 mg/dL (9-23); Calcium 8.4 mg/dL (8.7-10.4); Carbon Dioxide 25 mmol/L (20-31); Chloride 114 mmol/L (98-107); Glucose 123 mg/dL (74-106); Potassium 4.1 mmol/L (3.5-5.1); Sodium 151 mmol/L (136-145); Total Protein 6.3 g/dL (5.7-8.2)
[2025-08-16 17:22] LABS: Anisocytosis Moderate
[2025-08-16] MEDS: SODIUM CHLORIDE 0.9% 500 ML IV ONE (18:15)
[2025-08-16] MEDS ORDERED: ONDANSETRON HCL 4 MG/2 ML VIAL IV PRN (22:00)
[2025-08-16] MEDS ORDERED: HYDROcodone-ACET 5/325MG TAB PO PRN (22:00)
[2025-08-16] MEDS ORDERED: ARTIFICIAL TEARS 15ml EACHEYE PRN (22:00)
--- NOTE | 2025-08-16 22:07 | DVHHP2 ---
History of Present Illness Reason for Visit: Abnormal blood work History of Present Illness 69-year-old male presents for evaluation of abnormal blood work. Patient presents for evaluation of low hemoglobin level of 6.4. Patient with frequent blood transfusions secondary to MDS. No signs of bleeding. No chest pain or shortness for breath. Patient is alert oriented x1. Does have a history of Alzheimer's dementia. Past Medical History Alzheimer's dementia, dyslipidemia, myelodysplastic syndrome, hyperlipidemia, AAA, hypertension Family History Noncontributory ALCOHOL: none Lives: [facility] Review of Systems Review of Systems Review of systems are limited due the patient's dementia. Allergies: Coded Allergies: Morphine (Verified Allergy, Unknown, 06/22/25) Medications Current Medications Medications Dose Ordered Sig/Barron Route Start Time Stop Time Status Last Admin Dose Admin Artificial Tears 1 drop Q2HP PRN EACHEYE 08/16/25 22:00 UNV Amlodipine Besylate 10 mg DAILY PO 08/17/25 10:00 UNV Atorvastatin Calcium 40 mg HS PO 08/16/25 22:00 UNV Clopidogrel Bisulfate 75 mg DAILY PO 08/17/25 10:00 UNV Folic Acid 1 mg DAILY PO 08/17/25 10:00 UNV Memantine 5 mg Q12HR PO 08/16/25 22:00 UNV Acetaminophen/ Hydrocodone Bitart 1 tab Q4HP PRN PO 08/16/25 22:00 UNV Ondansetron HCl 4 mg Q4HP PRN IV 08/16/25 22:00 UNV Acetaminophen 650 mg Q6HP PRN PO 08/16/25 22:00 UNV Exam Vital Signs Vital Signs Date Time Temp Pulse Resp B/P (MAP) Pulse Ox O2 Delivery O2 Flow Rate FiO2 08/16/25 21:50 98.4 78 20 122/69 98.4 08/16/25 20:00 99 08/16/25 16:00 Room Air* 0 21 Exam Gen: 69-year-old male in no apparent distress. Skin: Warm, dry, normal color and texture, no rash. HEENT: Normocephalic atraumatic, mucous membranes moist and pink. Neck: Cervical and supraclavicular nodes normal without enlargement, trachea is midline, thyroid gland is normal without masses. Pulmonary: Clear to auscultation and percussion bilaterally. Cardiac: Regular rate and rhythm. No murmur Abdomen: Soft, nontender, nondistended, bowel sounds present all 4 quadrants, no guarding, no rigidity, no organomegaly. Extremities: No cyanosis, clubbing, no edema Neuro: Cranial nerves II through XII grossly intact, normal affect and speech, no focal motor deficits. Labs/Xrays Labs Test 08/16/25 15:46 Range/Units White Blood Count 7.1 4.4-10.8 10^3/uL Red Blood Count 2.23 L 4.5-5.90 10^6/uL Hemoglobin 6.2 *L 13.5-17.5 g/dL Hematocrit 18.4 L 41.0-53.0 % Mean Corpuscular Volume 82.6 80.0-100.0 fL Mean Corpuscular Hemoglobin 27.9 L 28.0-32.0 pg Mean Corpuscular Hemoglobin Concent 33.8 32.0-36.0 g/dL Red Cell Distribution Width 25.0 H 11.8-14.3 % Platelet Count 59 L 140-450 10^3/uL Mean Platelet Volume 7.9 6.9-10.8 fL Neutrophils (%) (Auto) 55.2 37.0-80.0 % Lymphocytes (%) (Auto) 31.5 10.0-50.0 % Monocytes (%) (Auto) 11.9 0.0-12.0 % Eosinophils (%) (Auto) 0.1 0.0-7.0 % Basophils (%) (Auto) 1.3 0.0-2.0 % Neutrophils # (Auto) 3.9 1.6-8.6 10 ^3/uL Lymphocytes # (Auto) 2.2 0.4-5.4 10 ^3/uL Monocytes # (Auto) 0.8 0-1.3 10 ^3/uL Eosinophils # (Auto) 0 0-0.8 10 ^3/uL Basophils # (Auto) 0.1 0-0.2 10 ^3/uL Nucleated Red Blood Cells 5.2 % Platelet Estimate Decreased Anisocytosis (manual) Moderate Sodium Level 151 H 136-145 mmol/L Potassium Level 4.1 3.5-5.1 mmol/L Chloride Level 114 H 98-107 mmol/L Carbon Dioxide Level 25 20-31 mmol/L Anion Gap 12 5-15 Blood Urea Nitrogen 23 9-23 mg/dL Creatinine 1.09 0.700-1.30 mg/dL Glomerular Filtration Rate Calc 73 >90 mL/min BUN/Creatinine Ratio 21.1 H 10.0-20.0 Serum Glucose 123 H 74-106 mg/dL Lactic Acid Level 1.5 0.4-2.0 mmol/L Calcium Level 8.4 L 8.7-10.4 mg/dL Total Bilirubin 0.8 0.2-1.0 mg/dL Aspartate Amino Transferase (AST) 30 13-40 U/L Alanine Aminotransferase (ALT) < 9 7-40 U/L Alkaline Phosphatase 179 H 46-116 U/L Troponin I High Sensitivity 4 </=54 ng/L Total Protein 6.3 5.7-8.2 g/dL Albumin 3.4 3.2-4.8 g/dL SEPSIS Sepsis Screen Date sepsis recognized/suspect: Aug 16, 2025 Time Sepsis recognized/suspect: 1600 Recent Procedure: No On Antibiotic Therapy: No Respiratory Rate >20: No Heart Rate >90: No Temp<36 C (96.8 F) or >38.3 C: No SBP <90 or MAP <65 mmHG: No New Acute Mental Status Change: No Is the patient on CPAP, BIPAP,: No Physician Orders Rn Clinical Review (08/16/25 ) Type And Screen (08/16/25 15:37) Obtain Consent For: (08/16/25 16:23) Obtain Consent For Anesthesia (08/16/25 16:23) Admit (08/16/25 19:38) Artificial Tear 15ml Opthalmic (Tears Na (08/16/25 22:00) Amlodipine Tablet (Norvasc Tablet) (08/17/25 10:00) Atorvastatin (Lipitor) (08/16/25 22:00) Clopidogrel Bisulfate (Plavix) (08/17/25 10:00) Folic Acid Tablet (08/17/25 10:00) Memantine Tablet (Namenda Tablet) (08/16/25 22:00) Basic Metabolic Panel (08/17/25 04:00) Hydrocodone-Acet 5/325mg Tab ([place] 5/32 (08/16/25 22:00) Ondansetron Hcl (Zofran) (08/16/25 22:00) Complete Blood Count (08/17/25 04:00) Cardiac Diet-2gna,Lofat,Lochol (08/17/25 Breakfast) Condition: Stable (08/16/25 21:55) Acetaminophen Tablet (Tylenol Tablet) (08/16/25 22:00) Bedrest With Bathroom Privileg (08/16/25 21:55) Vital Signs Date Time Temp Pulse Resp B/P (MAP) Pulse Ox O2 Delivery O2 Flow Rate FiO2 08/16/25 21:50 98.4 78 20 122/69 98.4 08/16/25 20:00 73 19 168/57 (94) 99 08/16/25 19:20 97.4 70 14 174/62 97.4 08/16/25 19:00 99.5 73 15 154/57 99.5 08/16/25 18:17 76 18 169/55 (93) 100 08/16/25 16:00 69 17 176/66 (102) 99 08/16/25 16:00 69 17 99 Room Air* 0 21 08/16/25 15:30 97.7 62 16 132/66 98 97.7 Laboratory Tests Test 08/16/25 15:46 Lactic Acid Level 1.5 mmol/L (0.4-2.0) White Blood Count 7.1 10^3/uL (4.4-10.8) Medications Medications Dose Ordered Sig/Barron Route Start Time Stop Time Status Last Admin Dose Admin Sodium Chloride 500 ml @ 500 mls/hr Q1H ONCE IV 08/16/25 15:45 08/16/25 16:44 DC 08/16/25 18:15 500 MLS/HR Assessment/Plan Assessment/Plan Assessment Symptomatic anemia Myelodysplastic syndrome Dementia Hypertension Plan Admit the patient to [facility] to the hospitalist 2 units of packed red cells has been ordered by ER provider Resume home medications Continue treatment per orders. Plan discussed with: Other My Orders Orders - LOLLY RUIZ Procedure Category Date Status Time Admit ADMIT 08/16/25 Transmitted 19:38 Artificial Tear 15ml PHA 08/16/25 Logged Opthalmic (Tears Na 22:00 Amlodipine Tablet PHA 08/17/25 Logged (Norvasc Tablet) 10:00 Atorvastatin (Lipitor) PHA 08/16/25 Logged 22:00 Clopidogrel Bisulfate PHA 08/17/25 Logged (Plavix) 10:00 Folic Acid Tablet PHA 08/17/25 Logged 10:00 Memantine Tablet PHA 08/16/25 Logged (Namenda Tablet) 22:00 Basic Metabolic Panel LAB 08/17/25 Verified 04:00 Hydrocodone-Acet PHA 08/16/25 Logged 5/325mg Tab ([place] 22:00 Ondansetron Hcl PHA 08/16/25 Logged (Zofran) 22:00 Complete Blood Count LAB 08/17/25 Verified 04:00 Cardiac DIET 08/17/25 Transmitted Diet-2gna,Lofat,Lochol Breakfast Condition: Stable RONAN 08/16/25 In Process 21:55 Acetaminophen Tablet [facility] 08/16/25 Logged (Tylenol Tablet) 22:00 Bedrest With Bathroom RONAN 08/16/25 In Process Privileg 21:55 Date of Service: Aug 16, 2025 Billing Provider: LOLLY RUIZ Common Visit Codes: [id number] INP/OBS CARE (MOD) LOLLY RUIZ Aug 16, 2025 22:07
[2025-08-16 22:30] LABS: Urine Budding Yeast FEW /hpf (None Seen); Urine Protein, UAD 1+ (Negative); Urine WBC Clumps PRESENT /hpf (None Seen)
[2025-08-16] MEDS: MEMANTINE HCL 5 MG TAB PO SCH (23:27)
[2025-08-16] MEDS: ATORVASTATIN 20 MG TAB PO SCH (23:27)
[2025-08-16] MEDS: ACETAMINOPHEN 325 MG TAB PO PRN (23:28)
[2025-08-17] VITALS (10 sets, daily range): BP systolic 109–187; BP diastolic 64–80; PULSE 54–87; RESP 16–20; TEMP 97.4–98.6; O2SAT 20–99
[2025-08-17] MEDS ORDERED: ZOLP10TA PO (05:27)
[2025-08-17] MEDS ORDERED: ASCO1TAB27 PO (05:29)
[2025-08-17] MEDS ORDERED: ZINC220T6 PO (05:34)
[2025-08-17] MEDS ORDERED: VITA100072 PO (05:35)
[2025-08-17] MEDS ORDERED: CRAN450T PO (05:36)
[2025-08-17] MEDS ORDERED: LACT1CAP14 PO (05:37)
[2025-08-17 08:30] LABS: Hematocrit 25.1 % (41.0-53.0); Hemoglobin 8.7 g/dL (13.5-17.5); Mean Corpuscular Hemoglobin 28.2 pg (28.0-32.0); Mean Corpuscular Volume 81.9 fL (80.0-100.0)
[2025-08-17 08:56] LABS: Anion Gap 10 (5-15)
[2025-08-17 09:03] LABS: BUN/Creatinine Ratio 21.6 (10.0-20.0); Blood Urea Nitrogen 19 mg/dL (9-23); Nucleated Red Blood Cells % 10.0 %; Total Cells Counted 100.0 (100)
[2025-08-17 09:04] LABS: Anisocytosis Moderate; Ovalocytes FEW
[2025-08-17 09:05] LABS: Carbon Dioxide 24 mmol/L (20-31); Chloride 112 mmol/L (98-107); Glucose 96 mg/dL (74-106); Polychromasia Slight; Potassium 3.9 mmol/L (3.5-5.1); Sodium 146 mmol/L (136-145)
[2025-08-17 09:06] LABS: Calcium 8.3 mg/dL (8.7-10.4)
[2025-08-17] MEDS ORDERED: CLOPIDOGREL BISULFATE 75 MG TAB PO SCH (10:00)
[2025-08-17] MEDS: FOLIC ACID 1 MG TAB PO SCH (10:17)
[2025-08-17] MEDS: hydrALAZINE HCL 20 MG/ML VL IV PRN (12:19)
--- NOTE | 2025-08-17 15:12 | DVHPNRES ---
Progress Note Date Seen: Aug 17, 2025 Resident Creating Document: AREN APPLE RESIDENT Medical Necessity Reason Pt with a Central, PICC or Fol: No Subjective Review of Systems Tom Malone is a 69-year-old man with history of Alzheimer's dementia presented to the ER for evaluation of abnormal blood work. Patient is AO x1 Patient presents for evaluation of low hemoglobin level of 6.4. On admission, his hemoglobin was 6.2 .He was given 2 units of pRBCs overnight and his hemoglobin today was 8.7. Patient has a history of frequent blood transfusions secondary to MDS. There are no signs of acute bleeding. There is no shortness of breaths or chest pain. Past Medical history:Alzheimer's dementia, dyslipidemia, myelodysplastic syndrome, hyperlipidemia, AAA, hypertension Past surgical history: Unknown Social & Personal history: Lives at [facility] Allergies: morphine Patient seen and examined at bedside. Patient is alert and oriented to himself only. Review of systems limited due to patient's dementia. Patient reports: No new complaints Objective vital signs Vital Sign Date Time Temp Pulse Resp B/P (MAP) Pulse Ox O2 Delivery O2 Flow Rate FiO2 08/17/25 13:00 97.6 87 18 109/70 (83) 99 97.6 08/17/25 08:00 Room Air* 0 21 Total Intake and Output 08/16/25 08/16/25 08/17/25 15:00 23:00 07:00 Intake Total 2300 ml 600 ml Output Total 0 ml Balance 2300 ml 600 ml medications Current Medications Medications Dose Ordered Sig/Barron Route Start Time Stop Time Status Last Admin Dose Admin Artificial Tears 1 drop Q2HP PRN EACHEYE 08/16/25 22:00 Amlodipine Besylate 10 mg DAILY PO 08/17/25 10:00 08/17/25 10:17 10 MG Atorvastatin Calcium 40 mg HS PO 08/16/25 22:00 08/16/25 23:27 40 MG Clopidogrel Bisulfate 75 mg DAILY PO 08/17/25 10:00 Hold Folic Acid 1 mg DAILY PO 08/17/25 10:00 08/17/25 10:17 1 MG Memantine 5 mg Q12HR PO 08/16/25 22:00 08/17/25 10:17 5 MG Acetaminophen/ Hydrocodone Bitart 1 tab Q4HP PRN PO 08/16/25 22:00 Ondansetron HCl 4 mg Q4HP PRN IV 08/16/25 22:00 Acetaminophen 650 mg Q6HP PRN PO 08/16/25 22:00 08/16/25 23:28 650 MG Ceftriaxone Sodium 50 ml @ 100 mls/hr DAILY@09 IV 08/17/25 09:00 08/17/25 10:17 100 MLS/HR Hydralazine HCl 10 mg Q6HP PRN IV 08/17/25 10:00 08/17/25 12:19 10 MG Examination General Appearance: Cooperative. Well developed. NAD Head Exam: Normal inspection Neck Exam: Normal inspection. Non-tender. Normal alignment Pulmonary/Respiratory: Chest non-tender. Clear bilateral breath sounds, no crackles, no wheezing. Cardiovascular/Chest: Regular rate and rhythm. No murmurs. No JVD. Peripheral Pulses: 2+ Radial (R). 2+ Radial (L). 2+ Pedal (R). 2+ Pedal (L) Abdominal Exam: Normal bowel sounds. Soft. normal abdomen, no visible veins, Nontender. No hepatosplenomegaly. No masses Ankle Exam: Negative ankle edema Lower extremities: Negative lower extremity edema Neuro/Mental Status: A&O x4. Coherent. Thoughts/Psych: Normal thought pattern. Appropriate mood and affect. Good judgement and insight Skin Exam: Normal inspection. Normal color. Warm. Dry Nurse was present as scale manager during the examination. laboratory and microbiology Laboratory Tests 08/17/25 06:58 Test 08/17/25 06:58 Range/Units Serum Glucose 96 74-106 mg/dL Labs and/or images reviewed: Labs reviewed by me, Image(s) reviewed by me Problem List/Assessment/Plan Problem List/Assessment/Plan Symptomatic anemia Myelodysplastic syndrome -Hb 6.2 on admission -units of PRBCs given,Hb on 08/17/2025 was 8.7 -monitor H and H Alzheimer's Dementia -continue home medication memantine Acute complicated UTI -U/A showed turbid,2+ nitrites,93 WBCs and few bacteria -ordered urine culture -started on ceftriaxone Hypertension,controlled -resume amlodipine 10mg -hydralazine 10mg q6 prn Dry eye,right -started on artificial tears Goals of care discussed with the patient's for 20 minutes: DNR/DNI Plan discussed with patient Plan discussed with Dr Farrell Plan discussed with: Spouse, Other (Nurse) My Orders My Orders Orders - AREN APPLE RESIDENT Procedure Category Date Status Time Ceftriaxone 1gm/50ml PHA 08/17/25 In Process (Rocephin) 09:00 Hydralazine Injection PHA 08/17/25 In Process (Apresoline Inject 10:00 CC Plasma Assessment Blood Product Administration S: 190 Date of Service: Aug 17, 2025 Billing Provider: HARRISON FARRELL MD Common Visit Codes: [id number] INP/OBS CARE(HIGH) Secondary Visit Codes: [id number] CARE PLAN 30 MINUTES (20 minutes) Addendum Addendum Addendum I was physically present for the keita portions of the service provided to patient by THE RESIDENT. I have reviewed the documentation, discussed the case with resident and agree with the resident's documentation except as noted. Also the patient's clinical case was discussed with the patient's nurse. This medical document was created using an electronic medical record system with computerized dictation system. Although this document has been carefully reviewed, there might still be some phonetic and typographical errors. These areas are purely typographical due to imperfections of the software programs, and do not reflect any compromise in the patient's medical care. Late signature. AREN APPLE Aug 17, 2025 15:12 HARRISON FARRELL MD Aug 18, 2025 06:46
[2025-08-18] VITALS (9 sets, daily range): BP systolic 129–165; BP diastolic 66–88; PULSE 58–65; RESP 17–20; TEMP 97.9–98.1; O2SAT 95–98
--- NOTE | 2025-08-18 06:47 | DVHPN2 ---
Subjective Continues to be confused Reviewed: Care Plan, H&P, Labs, Medications, Previous Orders, Radiology Changes from previous H/P or p: No Changes Objective Vitals Vital Signs Date Time Temp Pulse Resp B/P (MAP) Pulse Ox O2 Delivery O2 Flow Rate FiO2 08/18/25 05:00 64 19 155/72 (99) 97 08/17/25 20:00 Room Air* 0 21 08/17/25 17:00 97.7 97.7 Intake/Output Intake and Output 08/18/25 07:00 Intake Total 1150 ml Balance 1150 ml Intake Oral 1100 ml IV Total 50 ml # Voids 7 # Bowel Movements 1 General Appearance: Alert, Other (Confused) Lungs: Clear to auscultation, Normal air movement Cardiovascular: Regular rate, Normal S1, Normal S2 Abdomen: Normal bowel sounds, Soft, No tenderness Extremities: Other (Mitten on hand/s) Neuro: Normal speech, Cranial nerves 3-12 NL, Other (Confused; moves all limbs; can NOT understand/follow orders) Psych/Mental Status: Other (Confused) Medications Current Medications Medications Dose Ordered Sig/Barron Route Start Time Stop Time Status Last Admin Dose Admin Artificial Tears 1 drop Q2HP PRN EACHEYE 08/16/25 22:00 Amlodipine Besylate 10 mg DAILY PO 08/17/25 10:00 08/17/25 10:17 10 MG Atorvastatin Calcium 40 mg HS PO 08/16/25 22:00 08/17/25 21:43 40 MG Clopidogrel Bisulfate 75 mg DAILY PO 08/17/25 10:00 Hold Folic Acid 1 mg DAILY PO 08/17/25 10:00 08/17/25 10:17 1 MG Memantine 5 mg Q12HR PO 08/16/25 22:00 08/17/25 21:43 5 MG Acetaminophen/ Hydrocodone Bitart 1 tab Q4HP PRN PO 08/16/25 22:00 Ondansetron HCl 4 mg Q4HP PRN IV 08/16/25 22:00 Acetaminophen 650 mg Q6HP PRN PO 08/16/25 22:00 08/16/25 23:28 650 MG Ceftriaxone Sodium 50 ml @ 100 mls/hr DAILY@09 IV 08/17/25 09:00 08/17/25 10:17 100 MLS/HR Hydralazine HCl 10 mg Q6HP PRN IV 08/17/25 10:00 08/17/25 12:19 10 MG Laboratory Results Laboratory Tests 08/17/25 06:58 Chemistry Test 08/17/25 06:58 Calcium Level 8.3 mg/dL (8.7-10.4) L Urinalysis Test 08/16/25 21:50 Urine Color Yellow (Yellow) Urine Clarity Turbid (Clear) H Urine pH 6.0 (5.0-9.0) Urine Specific [place] 1.019 (1.001-1.035) Urine Protein 1+ (Negative) H Urine Ketones Negative (Negative) Urine Blood Negative /uL (Negative) Urine Nitrite 2+ (Negative) H Urine Bilirubin Negative (Negative) Urine Urobilinogen Normal mg/dL (Negative) Urine Leukocyte Esterase 3+ /uL (Negative) Urine RBC 2 /hpf (0 - 3) Urine WBC Clumps Present /hpf (None Seen) Urine Microscopic WBC 93 /HPF (0-3) H Urine Squamous Epithelial Cells Few /hpf (<5) Urine Bacteria Few /hpf (None Seen) H Urine Yeast (Budding) Few /hpf (None Seen) Urine Glucose Normal mg/dL (Normal) Labs and/or images reviewed: Labs reviewed by me, Image(s) reviewed by me Assessment/Plan Assessment/Plan Covering: Acute metabolic/toxic encephalopathy the setting of Alzheimer dementia due to hypernatremia, suspected sepsis and severe anemia Severe anemia and thrombocytopenia due to myelodysplastic syndrome Hypernatremia due to suspected dehydration secondary to decreased oral intake in the setting of advanced Alzheimer dementia Alzheimer dementia; advanced Myelodysplastic syndrome Suspected sepsis due to acute complicated UTI Suspected YOLANDA in the setting of suspected sepsis; most likely vasomotor nephropathy Hypertensive heart disease Dry eyes Malnutrition Received 2 units packed RBCs and hemoglobin on admission was 6.2; to transfuse if hemoglobin; below 7 Received IV fluids One-to-one sitter Continue IV ceftriaxone Avoid nephrotoxic agents Continue antihypertensive medications and adjust according to blood pressure reading of Continue home medication memantine Reviewed available lab work, imaging studies, and cultures Continue artificial tears No signs/symptoms of active bleeding Continue monitoring Late Entry. This medical document was created using an electronic medical record system with computerized dictation system. Although this document has been carefully reviewed, there might still be some phonetic and typographical errors. These areas are purely typographical due to imperfections of the software programs, and do not reflect any compromise in the patient's medical care. Plan discussed with: Spouse, Other (Nurse) My Orders Orders - HARRISON FARRELL MD Procedure Category Date Status Time Code Status CODE 08/17/25 Transmitted 13:52 Date of Service: Aug 18, 2025 Billing Provider: HARRISON FARRELL MD Common Visit Codes: [id number] INP/OBS CARE(HIGH) HARRISON FARRELL MD Aug 18, 2025 06:47
[2025-08-18 07:26] LABS: Potassium 3.6 mmol/L (3.5-5.1); Sodium 141 mmol/L (136-145)
[2025-08-18 07:27] LABS: Anion Gap 11 (5-15); Carbon Dioxide 20 mmol/L (20-31)
[2025-08-18 07:32] LABS: BUN/Creatinine Ratio 20.0 (10.0-20.0); Blood Urea Nitrogen 18 mg/dL (9-23); Glucose 91 mg/dL (74-106)
[2025-08-18 07:42] LABS: Calcium 8.5 mg/dL (8.7-10.4); Chloride 110 mmol/L (98-107)
[2025-08-18 18:43] LABS: Hematocrit 26.8 % (41.0-53.0); Hemoglobin 9.3 g/dL (13.5-17.5); Mean Corpuscular Hemoglobin 28.1 pg (28.0-32.0); Mean Corpuscular Volume 81.3 fL (80.0-100.0); Nucleated Red Blood Cells % 2.5 %
[2025-08-18] MEDS: LORazepam 0.5 MG TAB PO PRN (22:04)
[2025-08-19] VITALS (7 sets, daily range): BP systolic 129–157; BP diastolic 65–98; PULSE 59–69; RESP 16–20; TEMP 97.5–98.3; O2SAT 96–100
[2025-08-19 06:46] LABS: Hematocrit 25.8 % (41.0-53.0); Hemoglobin 9.0 g/dL (13.5-17.5); Mean Corpuscular Hemoglobin 28.3 pg (28.0-32.0); Mean Corpuscular Volume 81.6 fL (80.0-100.0)
[2025-08-19 06:53] LABS: Bilirubin, Total 0.6 mg/dL (0.2-1.0)
[2025-08-19 06:56] LABS: Anion Gap 11 (5-15)
[2025-08-19 07:02] LABS: BUN/Creatinine Ratio 17.1 (10.0-20.0)
[2025-08-19 07:06] LABS: Alkaline Phosphatase 151 U/L (46-116); Blood Urea Nitrogen 14 mg/dL (9-23); Calcium 8.6 mg/dL (8.7-10.4); Carbon Dioxide 22 mmol/L (20-31); Chloride 110 mmol/L (98-107); Glucose 87 mg/dL (74-106); Potassium 3.4 mmol/L (3.5-5.1); Sodium 143 mmol/L (136-145); Total Protein 5.7 g/dL (5.7-8.2)
[2025-08-19 07:07] LABS: Alanine Aminotransferase < 9 U/L (7-40); Albumin 3.0 g/dL (3.2-4.8)
[2025-08-19 08:24] LABS: Total Cells Counted 100.0 (100)
[2025-08-19 08:25] LABS: Anisocytosis Slight
--- NOTE | 2025-08-19 08:31 | DVHPN2 ---
Subjective Continues to be confused Reviewed: Care Plan, H&P, Labs, Medications, Previous Orders, Radiology Changes from previous H/P or p: No Changes Objective Vitals Vital Signs Date Time Temp Pulse Resp B/P (MAP) Pulse Ox O2 Delivery O2 Flow Rate FiO2 08/19/25 07:30 65 18 100 Room Air* 0 21 08/19/25 05:00 97.5 129/66 (87) 97.5 Intake/Output Intake and Output 08/19/25 07:00 Intake Total 640 ml Balance 640 ml Intake Oral 540 ml IV Total 100 ml # Voids 11 General Appearance: Alert, Other (Confused) HEENT: Atraumatic Lungs: Clear to auscultation, Normal air movement Cardiovascular: Regular rate, Normal S1, Normal S2 Abdomen: Normal bowel sounds, Soft, No tenderness Neuro: Normal speech, Cranial nerves 3-12 NL, Other (Confused; moves all limbs; can not understand/follow orders) Psych/Mental Status: Other (Confused) Medications Current Medications Medications Dose Ordered Sig/Barron Route Start Time Stop Time Status Last Admin Dose Admin Artificial Tears 1 drop Q2HP PRN EACHEYE 08/16/25 22:00 Amlodipine Besylate 10 mg DAILY PO 08/17/25 10:00 08/18/25 08:36 10 MG Atorvastatin Calcium 40 mg HS PO 08/16/25 22:00 08/18/25 22:05 40 MG Clopidogrel Bisulfate 75 mg DAILY PO 08/17/25 10:00 Hold Folic Acid 1 mg DAILY PO 08/17/25 10:00 08/18/25 08:35 1 MG Memantine 5 mg Q12HR PO 08/16/25 22:00 08/18/25 22:04 5 MG Acetaminophen/ Hydrocodone Bitart 1 tab Q4HP PRN PO 08/16/25 22:00 Ondansetron HCl 4 mg Q4HP PRN IV 08/16/25 22:00 Acetaminophen 650 mg Q6HP PRN PO 08/16/25 22:00 08/16/25 23:28 650 MG Ceftriaxone Sodium 50 ml @ 100 mls/hr DAILY@09 IV 08/17/25 09:00 08/18/25 08:35 100 MLS/HR Hydralazine HCl 10 mg Q6HP PRN IV 08/17/25 10:00 08/17/25 12:19 10 MG Lorazepam 1 mg QHSP PRN PO 08/18/25 22:00 08/18/25 22:04 1 MG Laboratory Results Laboratory Tests 08/19/25 05:40 Chemistry Test 08/19/25 05:40 Albumin 3.0 g/dL (3.2-4.8) L Calcium Level 8.6 mg/dL (8.7-10.4) L Total Protein 5.7 g/dL (5.7-8.2) LFT Test 08/19/25 05:40 Alanine Aminotransferase (ALT) < 9 U/L (7-40) Alkaline Phosphatase 151 U/L (46-116) H Aspartate Amino Transferase (AST) 22 U/L (13-40) Total Bilirubin 0.6 mg/dL (0.2-1.0) Urinalysis Test 08/16/25 21:50 Urine Color Yellow (Yellow) Urine Clarity Turbid (Clear) H Urine pH 6.0 (5.0-9.0) Urine Specific [place] 1.019 (1.001-1.035) Urine Protein 1+ (Negative) H Urine Ketones Negative (Negative) Urine Blood Negative /uL (Negative) Urine Nitrite 2+ (Negative) H Urine Bilirubin Negative (Negative) Urine Urobilinogen Normal mg/dL (Negative) Urine Leukocyte Esterase 3+ /uL (Negative) Urine RBC 2 /hpf (0 - 3) Urine WBC Clumps Present /hpf (None Seen) Urine Microscopic WBC 93 /HPF (0-3) H Urine Squamous Epithelial Cells Few /hpf (<5) Urine Bacteria Few /hpf (None Seen) H Urine Yeast (Budding) Few /hpf (None Seen) Urine Glucose Normal mg/dL (Normal) Labs and/or images reviewed: Labs reviewed by me, Image(s) reviewed by me Assessment/Plan Assessment/Plan Covering: Acute metabolic/toxic encephalopathy the setting of Alzheimer dementia due to hypernatremia, suspected sepsis and severe anemia Severe anemia and thrombocytopenia due to myelodysplastic syndrome; hemoglobin stable so far Hypernatremia due to suspected dehydration secondary to decreased oral intake in the setting of advanced Alzheimer dementia Hypokalemia due to decreased oral intake Alzheimer dementia; advanced Myelodysplastic syndrome Suspected sepsis due to acute complicated UTI Suspected YOLANDA in the setting of suspected sepsis; most likely vasomotor nephropathy Hypertensive heart disease Dry eyes Malnutrition Received 2 units packed RBCs and hemoglobin on admission was 6.2; to transfuse if hemoglobin; below 7 Received IV fluids One-to-one sitter Continue IV ceftriaxone Avoid nephrotoxic agents Continue antihypertensive medications and adjust according to blood pressure reading of Continue home memantine Reviewed available lab work, imaging studies, and cultures Continue artificial tears No signs/symptoms of active bleeding Correct electrolytes as indicated Physical therapy director social service consulted for discharge planning Continue monitoring Possible discharge tomorrow if hemoglobin continue to be stable; with a return to Psychiatric Late Entry. This medical document was created using an electronic medical record system with computerized dictation system. Although this document has been carefully reviewed, there might still be some phonetic and typographical errors. These areas are purely typographical due to imperfections of the software programs, and do not reflect any compromise in the patient's medical care. Late Entry. This medical document was created using an electronic medical record system with computerized dictation system. Although this document has been carefully reviewed, there might still be some phonetic and typographical errors. These areas are purely typographical due to imperfections of the software programs, and do not reflect any compromise in the patient's medical care. Plan discussed with: Other (Nurse) My Orders Orders - HARRISON FARRELL MD Procedure Category Date Status Time Lorazepam Tablet PHA 08/18/25 In Process (Ativan Tablet) 22:00 Date of Service: Aug 19, 2025 Billing Provider: HARRISON FARRELL MD Common Visit Codes: [id number] INP/OBS CARE(HIGH) HARRISON FARRELL MD Aug 19, 2025 08:31
[2025-08-19] MEDS: POTASSIUM EFFERVESENT TAB 25 MEQ PO ONE (09:08)
[2025-08-19 16:57] LABS: Hemoglobin 6.2 g/dL (13.5-17.5)
[2025-08-20 01:00] VITALS: BP 141/68; PULSE 67; RESP 16; TEMP 98.2; O2SAT 96
[2025-08-20 05:00] VITALS: BP 150/75; PULSE 64; RESP 16; TEMP 98; O2SAT 95
[2025-08-20 08:00] VITALS: PULSE 57; RESP 16; O2SAT 99
[2025-08-20 09:00] VITALS: BP 171/71; PULSE 57; RESP 17; TEMP 97.6; O2SAT 99
--- NOTE | 2025-08-20 11:10 | DVHDS2 ---
Discharge Summary Date of Admission Aug 16, 2025 at 19:39 Date of Discharge: Aug 20, 2025 Admitting Diagnosis Symptomatic anemia Labs/Diagnostic Data: Laboratory Results Test 08/19/25 05:40 08/18/25 18:32 08/17/25 06:58 08/16/25 21:50 White Blood Count 5.5 10^3/uL (4.4-10.8) Red Blood Count 3.17 10^6/uL (4.5-5.90) Hemoglobin 9.0 g/dL (13.5-17.5) Hematocrit 25.8 % (41.0-53.0) Mean Corpuscular Volume 81.6 fL (80.0-100.0) Mean Corpuscular Hemoglobin 28.3 pg (28.0-32.0) Mean Corpuscular Hemoglobin Concent 34.7 g/dL (32.0-36.0) Red Cell Distribution Width 20.5 % (11.8-14.3) Platelet Count 54 10^3/uL (140-450) Mean Platelet Volume 7.9 fL (6.9-10.8) Neutrophils (%) (Auto) % (37.0-80.0) Lymphocytes (%) (Auto) % (10.0-50.0) Monocytes (%) (Auto) % (0.0-12.0) Basophils (%) (Auto) % (0.0-2.0) Neutrophils # (Auto) 10 ^3/uL (1.6-8.6) Lymphocytes # (Auto) 10 ^3/uL (0.4-5.4) Monocytes # (Auto) 10 ^3/uL (0-1.3) Differential Total Cells Counted 100.0 (100) Neutrophils % (Manual) 43 (37.0-80.0) Band Neutrophils % (Manual) 9 Lymphocytes % (Manual) 39 (10.0-50.0) Monocytes % (Manual) 9 (0-12) Eosinophils % (Manual) 0 (0-7) Basophils % (Manual) 0 (0.0-2.0) Metamyelocytes % (manual) 0 Myelocytes % (Manual) 0 Promyelocytes % (Manual) 0 Blast Cells % (Manual) 0 Reactive Lymphocytes 0 Platelet Estimate Decreased Anisocytosis (manual) Slight Sodium Level 143 mmol/L (136-145) Potassium Level 3.4 mmol/L (3.5-5.1) Chloride Level 110 mmol/L (98-107) Carbon Dioxide Level 22 mmol/L (20-31) Anion Gap 11 (5-15) Blood Urea Nitrogen 14 mg/dL (9-23) Creatinine 0.82 mg/dL (0.700-1.30) Glomerular Filtration Rate Calc 95 mL/min (>90) BUN/Creatinine Ratio 17.1 (10.0-20.0) Serum Glucose 87 mg/dL (74-106) Calcium Level 8.6 mg/dL (8.7-10.4) Total Bilirubin 0.6 mg/dL (0.2-1.0) Aspartate Amino Transferase (AST) 22 U/L (13-40) Alanine Aminotransferase (ALT) < 9 U/L (7-40) Alkaline Phosphatase 151 U/L (46-116) Total Protein 5.7 g/dL (5.7-8.2) Albumin 3.0 g/dL (3.2-4.8) Eosinophils (%) (Auto) 0.8 % (0.0-7.0) Eosinophils # (Auto) 0.1 10 ^3/uL (0-0.8) Basophils # (Auto) 0.1 10 ^3/uL (0-0.2) Nucleated Red Blood Cells 2.5 % Polychromasia Slight Ovalocytes Few Schistocytes Few Urine Color Yellow (Yellow) Urine Clarity Turbid (Clear) Urine pH 6.0 (5.0-9.0) Urine Specific [place] 1.019 (1.001-1.035) Urine Protein 1+ (Negative) Urine Ketones Negative (Negative) Urine Blood Negative /uL (Negative) Urine Nitrite 2+ (Negative) Urine Bilirubin Negative (Negative) Urine Urobilinogen Normal mg/dL (Negative) Urine Leukocyte Esterase 3+ /uL (Negative) Urine RBC 2 /hpf (0 - 3) Urine WBC Clumps Present /hpf (None Seen) Urine Microscopic WBC 93 /HPF (0-3) Urine Squamous Epithelial Cells Few /hpf (<5) Urine Bacteria Few /hpf (None Seen) Urine Yeast (Budding) Few /hpf (None Seen) Urine Glucose Normal mg/dL (Normal) Test 08/16/25 15:46 Lactic Acid Level 1.5 mmol/L (0.4-2.0) Troponin I High Sensitivity 4 ng/L (</=54) Other Laboratory Tests 08/19/25 05:40 Brief Hx & Hospital Course: History of Present Illness 69-year-old male presents for evaluation of abnormal blood work. Patient presents for evaluation of low hemoglobin level of 6.4. Patient with frequent blood transfusions secondary to MDS. No signs of bleeding. No chest pain or shortness for breath. Patient is alert oriented x1. Does have a history of Alzheimer's dementia. Course of hospitalization: Patient was found to have positive UTI for which patient was started on IV Rocephin. Patient had 2 units of PRBCs with hemoglobin remaining greater than 9.0. Patient will be discharged back to senior living facility for continuation of previous care. Patient has had adequate IV antibiotic coverage for UTI. He will continue with all of his previous medications per his primary provider Physical examination General: Alert and Oriented x3. No acute distress. Well-nourished. Eyes: EOMI. Anicteric. HENT: Moist mucous membranes. Lungs: Clear to auscultation bilaterally. No accessory muscle use. Cardiovascular: Regular rate and rhythm. No murmur. No JVD. Abdomen: Soft, non-tender and non-distended. No palpable masses. Extremities: No edema. Non-tender. Skin: No rashes or lesions. Warm. Neurologic: No focal neurological deficits. CN II-XII grossly intact, but not individually tested. Psychiatric: Cooperative. Appropriate mood and affect. Total time spent with patient discussing and formulating plan of care: 35 minutes. This medical document was created using an electronic medical record system with [employer] dictation system. Although this document has been carefully reviewed, there may still be some phonetic and typographical errors. These areas are purely typographical due to imperfections of the software programs, and do not reflect any compromise in the patient's medical care. Condition at Discharge: Fair Final Diagnosis/Problems List 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 Sepsis Acute metabolic/toxic encephalopathy the setting of Alzheimer dementia due to hypernatremia, suspected sepsis and severe anemia Severe anemia and thrombocytopenia due to myelodysplastic syndrome; hemoglobin stable so far Hypernatremia due to suspected dehydration secondary to decreased oral intake in the setting of advanced Alzheimer dementia Hypokalemia due to decreased oral intake Alzheimer dementia; advanced Myelodysplastic syndrome Complicated cystitis Ruled out YOLANDA Hypertensive heart disease Dry eyes Discharge Disposition: Care Home Facility Discharge Instruct/Medications Diet: Regular Activity: No Restrictions, As Tolerated Follow Up/Referral: Per accepting provider Medications: Refer to medication reconciliation form Scheduled Amlodipine Besylate (Amlodipine Besylate), 1 TAB PO DAILY, (Reported) Ascorbic Acid (Vitamin C 500 mg), 1 TAB PO BID, (Reported) Atorvastatin Calcium (Atorvastatin Calcium), 1 TAB PO DAILY, (Reported) Clopidogrel Bisulfate (Clopidogrel), 1 TAB PO DAILY, (Reported) Cranberry Extract (Cranberry), 450 MG PO BID, (Reported) Folic Acid (Folic Acid), 1 TAB PO DAILY, (Reported) Lactobacillus (Probiotic Acidophilus), 1 CAP PO BID, (Reported) Memantine Hydrochloride (Memantine HCl), 1 TAB PO BID, (Reported) Scheduled PRN Zolpidem Tartrate (Ambien), 10 MG PO HSPRN PRN for FOR INSOMNIA, (Reported) Miscellaneous Medications Potassium Chloride (Potassium Chloride Cr), 20 MEQ PO, (Reported) Vitamin E (E1000), Unknown Dose PO, (Reported) Zinc Sulfate (Zinc Sulfate), 220 MG PO, (Reported) 36 Discharge Statement: "Patient was advised to return to the ER or call 911 if any headaches, dizziness, shortness of breath, chest pain, abdominal pain, bleeding, fevers, or worsening of medical condition. Patient was counseled about treatment plan, medications, possible side effects, patientverbalized understanding. All questions were answered to the best of my ability. 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
[2025-08-20 11:54] LABS: Anion Gap 12 (5-15); BUN/Creatinine Ratio 17.1 (10.0-20.0); Blood Urea Nitrogen 18 mg/dL (9-23); Calcium 8.2 mg/dL (8.7-10.4); Carbon Dioxide 20 mmol/L (20-31); Chloride 111 mmol/L (98-107); Glucose 98 mg/dL (74-106); Magnesium 2.2 mg/dL (1.6-2.6); Potassium 4.8 mmol/L (3.5-5.1); Sodium 143 mmol/L (136-145)
[2025-08-20 13:00] VITALS: BP 161/81; PULSE 60; RESP 16; TEMP 97.8; O2SAT 99
[2025-08-20 15:17] LABS: Hematocrit 28.6 % (41.0-53.0); Hemoglobin 9.8 g/dL (13.5-17.5); Mean Corpuscular Hemoglobin 28.4 pg (28.0-32.0); Mean Corpuscular Volume 82.8 fL (80.0-100.0)
[2025-08-20 16:43] LABS: Anisocytosis Slight; Total Cells Counted 100.0 (100)
== END 2025-08-20 15:33 | DRG 871 ==
LOC: EDBD 15:28 → ER 15:35 → OVERFLOW 19:39 → EAST 22:28
PROVIDERS: ADMIT Nurse Practitioner Acute Care; ATTEND Nurse Practitioner Acute Care
PROC: 30233N1 Transfusion of Nonautologous Red Blood Cells into Peripheral Vein, Percutaneous Approach (ICD-10-PCS; principal; 2025-08-16)
DX: A41.9 Sepsis, unspecified organism (principal); G92.8 Other toxic encephalopathy; E87.0 Hyperosmolality and hypernatremia; Z68.1 Body mass index [BMI] 19.9 or less, adult; Z66 Do not resuscitate; D46.9 Myelodysplastic syndrome, unspecified; F02.80 Dementia in other diseases classified elsewhere, unspecified severity, without behavioral disturbance, psychotic disturbance, mood disturbance, and anxiety; D69.59 Other secondary thrombocytopenia; E87.6 Hypokalemia; G30.9 Alzheimer's disease, unspecified; J44.9 Chronic obstructive pulmonary disease, unspecified; E86.0 Dehydration; E78.5 Hyperlipidemia, unspecified; Z96.89 Presence of other specified functional implants; I71.40 Abdominal aortic aneurysm, without rupture, unspecified; D63.8 Anemia in other chronic diseases classified elsewhere; H04.121 Dry eye syndrome of right lacrimal gland; D69.6 Thrombocytopenia, unspecified; I11.0 Hypertensive heart disease with heart failure; I50.9 Heart failure, unspecified; N30.90 Cystitis, unspecified without hematuria; F51.01 Primary insomnia; Z86.73 Personal history of transient ischemic attack (TIA), and cerebral infarction without residual deficits; Z88.5 Allergy status to narcotic agent; Z79.02 Long term (current) use of antithrombotics/antiplatelets
CPT/HCPCS: 36415; 80048; 80053; 81001; 83605; 83735; 84484; 85007; 85025; 85027; 86850; 86900; 86901; 86920; 87081; 96360; 97110; 97163; G0378

== ENCOUNTER 2025-09-08 14:52 | Inpatient (IN) | payer MEDICARE, MEDICAID ==
[~2025-09-08] VITALS: Ht 167.6 cm; Wt 59.0 kg
[~2025-09-08 14:52] MED LIST changes: +ASCO1TAB27 PO; +CRAN450T PO; +LACT1CAP14 PO; +VITA100072 PO; +ZINC220T6 PO; +ZOLP10TA PO
[2025-09-08 15:31] LABS: Potassium 3.6 mmol/L (3.5-5.1)
[2025-09-08 15:32] LABS: Anion Gap 12 (5-15); Carbon Dioxide 24 mmol/L (20-31)
[2025-09-08 15:37] LABS: BUN/Creatinine Ratio 20.7 (10.0-20.0); Hematocrit 18.9 % (41.0-53.0); Mean Corpuscular Hemoglobin 27.2 pg (28.0-32.0); Mean Corpuscular Volume 83.5 fL (80.0-100.0)
[2025-09-08 15:39] LABS: Blood Urea Nitrogen 23 mg/dL (9-23); Calcium 8.2 mg/dL (8.7-10.4); Chloride 111 mmol/L (98-107); Glucose 125 mg/dL (74-106); Sodium 147 mmol/L (136-145)
[2025-09-08 15:40] LABS: Hemoglobin 6.2 g/dL (13.5-17.5)
--- NOTE | 2025-09-08 15:43 | ED.PDOC ---
History of Present Illness HPI Comments 69 y/o M is BIBA from [facility] for c/c of abnormal labs. Per EMS personnel report, faculty called after patient's recent lab work showed patient having a Hgb of 7.1 Patient has a known history of becoming anemic every 2x weeks secondary to myelodysplastic syndrome. Reported associated generalized wea kness and AMS from usual baseline characterized by blank stare (A&Ox1 baseilne, with Hx of dementia). Chief Complaint: Abnormal LAB's Time Seen by MD: 15:00 Reviewed Notes: Nurses Notes, Medications, Allergies Allergies: Coded Allergies: Morphine (Verified Allergy, Unknown, 06/22/25) Home Meds Reported Medications Lactobacillus (Probiotic Acidophilus) 1 Cap Cap, 1 CAP PO BID, CAP 08/17/25 Cranberry Extract (Cranberry) 450 Mg Tab, 450 MG PO BID, TAB 08/17/25 Vitamin E (E1000) 1,000 Unit Cap, PO for 30 Days, CAP 08/17/25 Zinc Sulfate (Zinc Sulfate) 220 Mg Tab, 220 MG PO for 30 Days, TAB 08/17/25 Ascorbic Acid (Vitamin C 500 mg) 1 Tab Tab, 1 TAB PO BID, TAB 08/17/25 Zolpidem Tartrate (Ambien) 10 Mg Tab, 10 MG PO HSPRN PRN for FOR INSOMNIA, TAB 08/17/25 Potassium Chloride (POTASSIUM CHLORIDE CR) 10 Meq Tb, 20 MEQ PO, TAB 06/23/25 Amlodipine Besylate (Amlodipine Besylate) 10 Mg Tab, 1 TAB PO DAILY 06/23/25 Clopidogrel Bisulfate (CLOPIDOGREL) 75 Mg Tab, 1 TAB PO DAILY 06/23/25 Folic Acid (Folic Acid) 1 Mg Tab, 1 TAB PO DAILY 06/23/25 Memantine Hydrochloride (Memantine HCl) 5 Mg Tab, 1 TAB PO BID 06/23/25 Atorvastatin Calcium (ATORVASTATIN CALCIUM) 40 Mg Tab, 1 TAB PO DAILY 06/23/25 Information Source: Patient Mode of Arrival: Ambulatory Severity: Moderate Timing: Hours Duration: Since onset Prehospital treatment: None Past Medical History PAST MEDICAL HISTORY: Anemia, Cancer, Dementia (Alzheimer dementia), UTI'S Past Medical History (Other): 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 Sepsis Thrombocytopenia Surgical History: Unknown Family History Family History: Reviewed,noncontributory to illness Social History Smoker: Non-Smoker Alcohol: Denies ETOH Use Drugs: Denies Drug Use Lives In: Shelter All Other Systems: Reviewed and Negative (Comprehensive review of systems are negative unless stated in HPI) Physical Exam General Appearance: Moderate Distress HEENT: Normal ENT Inspection, Pharynx Normal, TMs Normal Neck: Full Range of Motion, Non-Tender, Normal, Normal Inspection Respiratory: Chest Non-Tender, Lungs Clear, No Accessory Muscle Use, No Respiratory Distress, Normal Breath Sounds Cardiovascular: No Edema, No JVD, No Murmur, No Gallop, Normal Peripheral Pulses, Regular Rate/Rhythm Breast Exam: Deferred Gastrointestinal: No Organomegaly, Non Tender, No Pulsatile Mass, Normal Bowel Sounds, Soft Genitalia: Deferred Pelvic: Deferred Rectal: Deferred Extremities: No calf tenderness, No pedal edema Musculoskeletal : Apperance: Normal Neurologic: No Motor Deficits, No Sensory Deficits Cerebellar Function: NOT DONE Reflexes: NOT DONE Skin: Pallor Peripheral Pulses: 3+ Radial (R), 3+ Radial (L) Lymphatic: No Adenopathy Was a procedure done? Was a procedure done?: No Differential Dx Considerations may include: anemia secondary to myelodysplastic syndrome, among others X-Ray, Labs, Meds, VS Vital Signs Date Time Temp Pulse Resp B/P (MAP) Pulse Ox O2 Delivery O2 Flow Rate FiO2 09/08/25 15:48 94 Room Air* 0 21 09/08/25 15:46 63 18 Room Air 0 09/08/25 15:45 97.4 68 18 175/49 (91) 94 97.4 09/08/25 15:04 98.7 60 16 140/70 98 98.7 Lab Test 09/08/25 15:12 Range/Units White Blood Count 8.4 4.4-10.8 10^3/uL Red Blood Count 2.26 L 4.5-5.90 10^6/uL Hemoglobin 6.2 *L 13.5-17.5 g/dL Hematocrit 18.9 L 41.0-53.0 % Mean Corpuscular Volume 83.5 80.0-100.0 fL Mean Corpuscular Hemoglobin 27.2 L 28.0-32.0 pg Mean Corpuscular Hemoglobin Concent 32.6 32.0-36.0 g/dL Red Cell Distribution Width 21.7 H 11.8-14.3 % Platelet Count 62 L 140-450 10^3/uL Mean Platelet Volume 8.3 6.9-10.8 fL Neutrophils (%) (Auto) 37.0-80.0 % Lymphocytes (%) (Auto) 10.0-50.0 % Monocytes (%) (Auto) 0.0-12.0 % Basophils (%) (Auto) 0.0-2.0 % Neutrophils # (Auto) 1.6-8.6 10 ^3/uL Lymphocytes # (Auto) 0.4-5.4 10 ^3/uL Monocytes # (Auto) 0-1.3 10 ^3/uL Differential Total Cells Counted Pending Neutrophils % (Manual) Pending Band Neutrophils % (Manual) Pending Lymphocytes % (Manual) Pending Monocytes % (Manual) Pending Eosinophils % (Manual) Pending Basophils % (Manual) Pending Metamyelocytes % (manual) Pending Myelocytes % (Manual) Pending Promyelocytes % (Manual) Pending Blast Cells % (Manual) Pending Nucleated Red Blood Cells % Reactive Lymphocytes Pending Platelet Estimate Pending Sodium Level 147 H 136-145 mmol/L Potassium Level 3.6 3.5-5.1 mmol/L Chloride Level 111 H 98-107 mmol/L Carbon Dioxide Level 24 20-31 mmol/L Anion Gap 12 5-15 Blood Urea Nitrogen 23 9-23 mg/dL Creatinine 1.11 0.700-1.30 mg/dL Glomerular Filtration Rate Calc 71 >90 mL/min BUN/Creatinine Ratio 20.7 H 10.0-20.0 Serum Glucose 125 H 74-106 mg/dL Calcium Level 8.2 L 8.7-10.4 mg/dL Troponin I High Sensitivity 5 </=54 ng/L Patient appropriate. Pale in color. Possible severe anemia. Vitals stable. He does have myeloproliferative disorder. Sodium elevated. Blood sugar elevated. Cardiac marker within normal limits. WBC within normal limits. Hemoglobin is low. Blood transfusion. Continue to monitor. Time of 1ST Reevaluation: 15:30 Reevaluation 1ST: Unchanged Patient Education/Counseling: Diagnosis, Treatment Family Education/Counseling: No Family Present SEPSIS Sepsis Screen Date sepsis recognized/suspect: Sep 08, 2025 Time Sepsis recognized/suspect: 1507 Recent Procedure: No On Antibiotic Therapy: No Respiratory Rate >20: No Heart Rate >90: No Temp<36 C (96.8 F) or >38.3 C: No SBP <90 or MAP <65 mmHG: No New Acute Mental Status Change: No Is the patient on CPAP, BIPAP,: No Physician Orders Complete Blood Count (09/08/25 15:00) Chest Portable (09/08/25 15:00) Urinalysis (09/08/25 15:00) Type And Screen (09/08/25 15:00) Manual Differential (09/08/25 15:12) Packedcells -Active Bleeding (09/08/25 15:59) Type And Screen (09/08/25 15:59) Vital Signs Date Time Temp Pulse Resp B/P (MAP) Pulse Ox O2 Delivery O2 Flow Rate FiO2 09/08/25 15:48 94 Room Air* 0 21 09/08/25 15:46 63 18 Room Air 0 09/08/25 15:45 97.4 68 18 175/49 (91) 94 97.4 09/08/25 15:04 98.7 60 16 140/70 98 98.7 Laboratory Tests Test 09/08/25 15:12 White Blood Count 8.4 10^3/uL (4.4-10.8) Departure 1 Departure Time of Disposition: 16:02 Impression: Primary Impression: Severe anemia Additional Impressions: Hypernatremia Hyperglycemia Disposition: ADMITTED INPATIENT Admit to: Med Surg Condition: Guarded Critical Care Note Critical Care Time?: Yes (90 min-critical care time only) Stability Stability form required: No Heart Score Heart Score: Heart Score Response (Comments) Value History N/A 0 EKG N/A 0 Age N/A 0 Risk Factors N/A 0 Troponin N/A 0 Total 0 I personally scribed for BAILEY DELGADO MD ([email or web address]) on 09/08/25 at 15:43. Electronically submitted by Cliff Perea ([email or web address]). BAILEY DELGADO MD Sep 08, 2025 15:43
--- NOTE | 2025-09-08 16:06 | DVH ---
CHEST RADIOGRAPH Indication: sob Technique: Single frontal view of the chest was obtained Comparison: XY CHEST PORTABLE on DOS: 07/19/25 FINDINGS: Lines and Tubes: None Lungs: No focal consolidation. Pleura: No effusion. No pneumothorax. Cardiomediastinal contours: Unremarkable Bones: No acute osseous abnormality. IMPRESSION: 1. No acute cardiopulmonary disease. 2. No significant change from 07/19/2025.
[2025-09-08 16:27] LABS: Anisocytosis Slight; Nucleated Red Blood Cells % 2.0 %; Total Cells Counted 100.0 (100)
[2025-09-08 16:32] VITALS: PULSE 68; RESP 17; O2SAT 100
[2025-09-08] MEDS ORDERED: ACETAMINOPHEN 325 MG TAB PO PRN ×2 (19:30)
[2025-09-08] MEDS ORDERED: DOCUSATE SOD 100 MG CAP PO PRN (19:30)
[2025-09-08] MEDS ORDERED: ONDANSETRON HCL 4 MG/2 ML VIAL IV PRN (19:30)
--- NOTE | 2025-09-08 20:35 | DVHHP2 ---
History of Present Illness Reason for Visit: Severe anemia History of Present Illness The patient is a 78-year-old male with multiple past medical history including sepsis, anemia, cancer, dementia, and thrombocytopenia who presented to [facility] ED for evaluation of abnormal labs. Patient had recent routine lab draw data shows low hemoglobin 7.1 and was instructed to go to the ED for further evaluation. As reported by , patient has a known history of becoming anemic every 2 weeks secondary to myelodysplastic syndrome, now experiencing generalized weakness and altered mental status from usual baseline. Patient was seen and evaluated in the ED, laboratory data shows WBC 8.4, hemoglobin 6.2, hematocrit 18.9, platelets 76056, sodium 147, potassium 3.6, BUN 23, creatinine 1.11, glucose 125, calcium 8.2, troponin 5, blood pressure 159/51, heart rate 68, temperature 98.2 F, O2 saturation 99% on room air. Chest x-ray showed no acute cardiopulmonary disease. Patient will receive 2 units of PRBC, please see medication orders section in the computer. On my assessment, at bedside, patient remains altered, no diaphoresis, shortness of breath, diarrhea, nausea, vomiting, no fever, chills. Patient was admitted for further evaluation and medical management. 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 Past Social History The patient lives at home, denies smoking, alcohol or illicit drugs abuse. Review of Systems Constitutional: Yes: Weakness; No: Fever, Chills, Sweats, Malaise, Other Eyes: No: Pain, Vision change, Conjunctivae inflammation, Eyelid inflammation, Other, Redness ENT: No: Ear pain, Ear discharge, Nose pain, Nose discharge, Nose congestion, Mouth pain, Mouth swelling, Throat pain, Throat swelling, Other Respiratory: No: Cough, Dry, Shortness of breath, SOB with excertion, Wheezing, Hemoptysis, Pleuritic Pain, Sputum, Wheezing, Other Cardiovascular: No: Chest Pain, Palpitations, Orthopnea, Paroxysmal Noc. Dyspnea, Edema, Lt Headedness, Other Gastrointestinal: No: Nausea, Vomiting, Abdominal Pain, Diarrhea, Constipation, Melena, Hematochezia, Other Genitourinary: No Dysuria, No Frequency, No Incontinence, No Hematuria, No Retention, No Other Musculoskeletal: No: other, neck pain, shoulder pain, arm pain, back pain, hand pain, leg pain, foot pain Skin: No: Rash, Lesions, Jaundice, Bruising, Other Neurological: Confusion, Other (Altered level of consciousness); No: Weakness, Numbness, Incoordination, Change in speech, Seizures Allergies: Coded Allergies: Morphine (Verified Allergy, Unknown, 06/22/25) Medications Current Medications Medications Dose Ordered Sig/Barron Route Start Time Stop Time Status Last Admin Dose Admin Acetaminophen 325 mg Q4HP PRN PO 09/08/25 19:30 Ondansetron HCl 4 mg Q4HP PRN IV 09/08/25 19:30 Docusate Sodium 100 mg BIDPRN PRN PO 09/08/25 19:30 Acetaminophen 650 mg Q6HP PRN PO 09/08/25 19:30 Exam Vital Signs Vital Signs Date Time Temp Pulse Resp B/P (MAP) Pulse Ox O2 Delivery O2 Flow Rate FiO2 09/08/25 16:32 68 17 100 Room Air* 0 21 09/08/25 16:32 98.2 159/51 (87) 98.2 General Appearance: Alert, Cooperative, No acute distress, Other (Oriented x1) HEENT: Atraumatic, PERRLA, EOMI, Mucous membr. moist/pink Respiratory: Normal air movement Cardiovascular: Regular rate, Normal S1, Normal S2, No murmurs Abdominal: Normal bowel sounds, Soft, No tenderness, No hepatospenomegaly, No masses Extremities: No clubbing, No cyanosis, No edema, Normal pulses, No tenderness/swelling Skin: No rashes, No breakdown Neuro: Normal tone, Sensation intact, Cranial nerves 3-12 NL, Reflexes 2+, Other (Generalized weakness) Psych/Mental Status: Mood NL, Other (Altered mental status) Labs/Xrays Labs Test 09/08/25 15:12 Range/Units White Blood Count 8.4 4.4-10.8 10^3/uL Red Blood Count 2.26 L 4.5-5.90 10^6/uL Hemoglobin 6.2 *L 13.5-17.5 g/dL Hematocrit 18.9 L 41.0-53.0 % Mean Corpuscular Volume 83.5 80.0-100.0 fL Mean Corpuscular Hemoglobin 27.2 L 28.0-32.0 pg Mean Corpuscular Hemoglobin Concent 32.6 32.0-36.0 g/dL Red Cell Distribution Width 21.7 H 11.8-14.3 % Platelet Count 62 L 140-450 10^3/uL Mean Platelet Volume 8.3 6.9-10.8 fL Neutrophils (%) (Auto) 37.0-80.0 % Lymphocytes (%) (Auto) 10.0-50.0 % Monocytes (%) (Auto) 0.0-12.0 % Basophils (%) (Auto) 0.0-2.0 % Neutrophils # (Auto) 1.6-8.6 10 ^3/uL Lymphocytes # (Auto) 0.4-5.4 10 ^3/uL Monocytes # (Auto) 0-1.3 10 ^3/uL Differential Total Cells Counted 100.0 100 Neutrophils % (Manual) 38 37.0-80.0 Band Neutrophils % (Manual) 13 Lymphocytes % (Manual) 31 10.0-50.0 Monocytes % (Manual) 15 H 0-12 Eosinophils % (Manual) 0 0-7 Basophils % (Manual) 0 0.0-2.0 Metamyelocytes % (manual) 0 Myelocytes % (Manual) 2 Promyelocytes % (Manual) 0 Blast Cells % (Manual) 1 Nucleated Red Blood Cells 2.0 % Reactive Lymphocytes 0 Platelet Estimate Decreased Anisocytosis (manual) Slight Schistocytes Few Sodium Level 147 H 136-145 mmol/L Potassium Level 3.6 3.5-5.1 mmol/L Chloride Level 111 H 98-107 mmol/L Carbon Dioxide Level 24 20-31 mmol/L Anion Gap 12 5-15 Blood Urea Nitrogen 23 9-23 mg/dL Creatinine 1.11 0.700-1.30 mg/dL Glomerular Filtration Rate Calc 71 >90 mL/min BUN/Creatinine Ratio 20.7 H 10.0-20.0 Serum Glucose 125 H 74-106 mg/dL Calcium Level 8.2 L 8.7-10.4 mg/dL Troponin I High Sensitivity 5 </=54 ng/L PATIENT: JOÃO STANTON ACCT: [id number] UNIT: [id number] : 1955 LOC: ER ROOM / BED: / AGE / SEX: 69 / M ADM STATUS: REG ER SERVICE 1500 ORDERING PHYSICIAN: BAILEY DELGADO MD PROCEDURE(s): CXRP - CHEST PORTABLE REASON: sob ORDER NUMBER(s): [id number], ACCESSION NUMBER(s): [id number] CHEST RADIOGRAPH Indication: sob Technique: Single frontal view of the chest was obtained Comparison: XY CHEST PORTABLE on DOS: 07/19/25 FINDINGS: Lines and Tubes: None Lungs: No focal consolidation. Pleura: No effusion. No pneumothorax. Cardiomediastinal contours: Unremarkable Bones: No acute osseous abnormality. IMPRESSION: 1. No acute cardiopulmonary disease. 2. No significant change from 07/19/2025. SEPSIS Sepsis Screen Date sepsis recognized/suspect: Sep 08, 2025 Time Sepsis recognized/suspect: 1631 Recent Procedure: No On Antibiotic Therapy: No Respiratory Rate >20: No Heart Rate >90: No Temp<36 C (96.8 F) or >38.3 C: No SBP <90 or MAP <65 mmHG: No New Acute Mental Status Change: No Is the patient on CPAP, BIPAP,: No Physician Orders Chest Portable (09/08/25 15:00) Urinalysis (09/08/25 15:00) Type And Screen (09/08/25 15:00) Insert Park Catheter QSHIFT (09/08/25 19:07) Allergies (09/08/25 19:18) Code Status (09/08/25 19:18) Oxygen Per Hour (09/08/25 19:18) Acetaminophen Tablet (Tylenol Tablet) (09/08/25 19:30) Ondansetron Hcl (Zofran) (09/08/25 19:30) Docusate Sodium Capsule (Colace Capsule) (09/08/25 19:30) Fall Risk Precautions In Place QSHIFT (09/08/25 19:18) Complete Blood Count (09/09/25 04:00) Comprehensive Metabolic Panel (09/09/25 04:00) Cardiac Diet-2gna,Lofat,Lochol (09/09/25 Breakfast) Condition: Serious (09/08/25 19:18) Acetaminophen Tablet (Tylenol Tablet) (09/08/25 19:30) Maintain Bed Rest (09/08/25 19:18) Sequential Compression Device (09/08/25 ) Vital Signs Date Time Temp Pulse Resp B/P (MAP) Pulse Ox O2 Delivery O2 Flow Rate FiO2 09/08/25 16:32 68 17 100 Room Air* 0 21 09/08/25 16:32 98.2 68 17 159/51 (87) 100 98.2 09/08/25 16:32 68 17 159/51 (87) 100 09/08/25 15:48 94 Room Air* 0 21 09/08/25 15:46 63 18 Room Air 0 09/08/25 15:45 97.4 68 18 175/49 (91) 94 97.4 09/08/25 15:04 98.7 60 16 140/70 98 98.7 Laboratory Tests Test 09/08/25 15:12 White Blood Count 8.4 10^3/uL (4.4-10.8) Assessment/Plan Assessment/Plan Severe anemia Thrombocytopenia Electrolyte imbalance Hyperglycemia Generalized weakness Plan 1. Admit to telemetry unit 2. Breathing treatment 3. Pain control management 4. Management of fluids and electrolytes 5. Consultation for hospitalist 6. Diagnostic tests chest x-ray 7. DVT prophylaxis on SCDs 8. Repeat labs CBC, CMP in a.m. 9. Continue with current medical management 10. Treatment plan discussed with patient/ and RN. Patient/ verbalized understanding. Plan discussed with: Patient, Other (RN) My Orders Orders - JUAN VAZQUEZ DNP Procedure Category Date Status Time Allergies RONAN 09/08/25 In Process 19:18 Code Status CODE 09/08/25 Transmitted 19:18 Oxygen Per Hour RT 09/08/25 Transmitted 19:18 Acetaminophen Tablet PHA 09/08/25 In Process (Tylenol Tablet) 19:30 Ondansetron Hcl PHA 09/08/25 In Process (Zofran) 19:30 Docusate Sodium PHA 09/08/25 In Process Capsule (Colace 19:30 Fall Risk Precautions RONAN 09/08/[address] 19:18 Complete Blood Count LAB 09/09/25 Verified 04:00 Comprehensive LAB 09/09/25 Verified Metabolic Panel 04:00 Cardiac DIET 09/09/25 Transmitted Diet-2gna,Lofat,Lochol Breakfast Condition: Serious RONAN 09/08/25 In Process 19:18 Acetaminophen Tablet PHA 09/08/25 In Process (Tylenol Tablet) 19:30 Maintain Bed Rest RONAN 09/08/25 In Process 19:18 Sequential RONAN 09/08/25 In Process Compression Device Problem List: (1) Severe anemia (2) Thrombocytopenia (3) Electrolyte imbalance (4) Hyperglycemia (5) Generalized weakness Date of Service: Sep 08, 2025 Billing Provider: JUAN VAZQUEZ DNP Common Visit Codes: [id number] INP/OBS CARE (HIGH) JUAN VAZQUEZ DNP Sep 08, 2025 20:35
[2025-09-08] MEDS ORDERED: NITROGLYCERIN 0.4 MG SL TAB SL PRN (20:45)
[2025-09-08 21:22] VITALS: BP 107/50; PULSE 71; RESP 12; TEMP 99.1
[2025-09-08 21:30] VITALS: BP 147/45; PULSE 70; RESP 18; TEMP 99.2
[2025-09-08 21:55] VITALS: BP 150/46; PULSE 72; PULSE 74; RESP 14; RESP 22; TEMP 98.8; TEMP 99.1
[2025-09-09 00:13] VITALS: BP 133/50; PULSE 69; RESP 10; TEMP 98.9
[2025-09-09 03:55] VITALS: BP 146/48; PULSE 63; RESP 18; TEMP 98.9
[2025-09-09 04:15] VITALS: BP_SYST 144; BP_SYST 161; BP_DIAS 53; BP_DIAS 59; PULSE 63; PULSE 65; RESP 16; TEMP 98.2; TEMP 98.7
[2025-09-09 04:55] LABS: Hematocrit 19.5 % (41.0-53.0); Mean Corpuscular Hemoglobin 28.8 pg (28.0-32.0); Mean Corpuscular Volume 83.6 fL (80.0-100.0); Nucleated Red Blood Cells % 5.2 %
[2025-09-09 05:06] LABS: Albumin 3.4 g/dL (3.2-4.8); Anion Gap 10 (5-15); BUN/Creatinine Ratio 17.9 (10.0-20.0); Bilirubin, Total 1.0 mg/dL (0.2-1.0); Blood Urea Nitrogen 14 mg/dL (9-23); Calcium 8.8 mg/dL (8.7-10.4); Carbon Dioxide 22 mmol/L (20-31); Glucose 87 mg/dL (74-106); Sodium 145 mmol/L (136-145); Total Protein 6.3 g/dL (5.7-8.2)
[2025-09-09 05:25] LABS: Alanine Aminotransferase < 9 U/L (7-40); Alkaline Phosphatase 168 U/L (46-116); Chloride 113 mmol/L (98-107); Potassium 3.2 mmol/L (3.5-5.1)
[2025-09-09 05:34] VITALS: BP 140/50; PULSE 69; RESP 12; TEMP 98.3
[2025-09-09 05:43] LABS: Hemoglobin 6.7 g/dL (13.5-17.5)
[2025-09-09 08:00] VITALS: PULSE 65; RESP 12; O2SAT 97
[2025-09-09 10:13] LABS: Urine Protein, UAD 1+ (Negative); Urine WBC Clumps PRESENT /hpf (None Seen)
--- NOTE | 2025-09-09 14:15 | DVHPN2 ---
Reviewed: Care Plan Changes from previous H/P or p: No Changes Eyes: No Pain, No Vision change, No Conjunctivae inflammation, No Eyelid inflammation, No Other, No Redness ENT: No Ear pain, No Ear discharge, No Nose pain, No Nose discharge, No Nose congestion, No Mouth pain, No Mouth swelling, No Throat pain, No Throat swelling, No Other Cardiovascular: No Chest Pain, No Palpitations, No Orthopnea, No Paroxysmal Noc. Dyspnea, No Edema, No Lt Headedness, No Other Respiratory: No Cough, No Dry, No Shortness of breath, No SOB with excertion, No Wheezing, No Hemoptysis, No Pleuritic Pain, No Sputum, No Other Gastrointestinal: No Nausea, No Vomiting, No Abdominal Pain, No Diarrhea, No Constipation, No Melena, No Hematochezia, No Other Genitourinary: No Dysuria, No Frequency, No Incontinence, No Hematuria, No Retention, No Other Musculoskeletal: No other, No neck pain, No shoulder pain, No arm pain, No back pain, No hand pain, No leg pain, No foot pain Skin: No Rash, No Lesions, No Jaundice, No Bruising, No Other Objective Vitals Vital Signs Date Time Temp Pulse Resp B/P (MAP) Pulse Ox O2 Delivery O2 Flow Rate FiO2 09/09/25 12:00 61 16 145/54 (84) 99 09/09/25 08:00 97.9 97.9 09/09/25 08:00 Room Air* 0 21 Intake/Output Intake and Output 09/09/25 07:00 Intake Total 300 ml Balance 300 ml Intake Other 300 ml Medications Current Medications Medications Dose Ordered Sig/Barron Route Start Time Stop Time Status Last Admin Dose Admin Acetaminophen 325 mg Q4HP PRN PO 09/08/25 19:30 Ondansetron HCl 4 mg Q4HP PRN IV 09/08/25 19:30 Docusate Sodium 100 mg BIDPRN PRN PO 09/08/25 19:30 Acetaminophen 650 mg Q6HP PRN PO 09/08/25 19:30 Nitroglycerin 0.4 mg Q5MINP PRN SL 09/08/25 20:45 Zolpidem Tartrate 5 mg HSPRN PRN PO 09/09/25 01:15 Laboratory Results Laboratory Tests 09/09/25 03:55 09/09/25 06:19 Chemistry Test 09/08/25 15:12 09/09/25 03:55 Calcium Level 8.2 mg/dL (8.7-10.4) L 8.8 mg/dL (8.7-10.4) Albumin 3.4 g/dL (3.2-4.8) Total Protein 6.3 g/dL (5.7-8.2) LFT Test 09/09/25 03:55 Alanine Aminotransferase (ALT) < 9 U/L (7-40) Alkaline Phosphatase 168 U/L (46-116) H Aspartate Amino Transferase (AST) 33 U/L (13-40) Total Bilirubin 1.0 mg/dL (0.2-1.0) Urinalysis Test 09/09/25 09:55 Urine Color Dark-yellow (Yellow) Urine Clarity Ex.turbid (Clear) Urine pH 6.5 (5.0-9.0) Urine Specific [place] 1.013 (1.001-1.035) Urine Protein 1+ (Negative) H Urine Ketones Negative (Negative) Urine Blood 1+ /uL (Negative) H Urine Nitrite 2+ (Negative) H Urine Bilirubin Negative (Negative) Urine Urobilinogen 2 mg/dL (Negative) H Urine Leukocyte Esterase 3+ /uL (Negative) Urine RBC 30 /hpf (0 - 3) Urine WBC Clumps Present /hpf (None Seen) Urine Microscopic WBC 2235 /HPF (0-3) H Urine Squamous Epithelial Cells None seen /hpf (<5) Urine Bacteria None seen /hpf (None Seen) Urine Mucus Few (None Seen) Urine Glucose Normal mg/dL (Normal) Labs and/or images reviewed: Labs reviewed by me, Image(s) reviewed by me Assessment/Plan Assessment/Plan Severe symptomatic anemia hemoglobin 6.2, improved to 7.7 after 2 units of RBC transfusion [place] recurrent blood transfusions Chronic anemia requiring blood transfusions History of cancer Dementia UTI Thrombocytopenia 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
[2025-09-09 20:14] VITALS: PULSE 66; RESP 12; O2SAT 98
[2025-09-09] MEDS: ZOLPIDEM TARTRATE 5 MG TAB PO PRN (22:49)
[2025-09-10 07:20] VITALS: PULSE 60; RESP 18; O2SAT 96
[2025-09-10 07:25] LABS: Hemoglobin 7.8 g/dL (13.5-17.5); Mean Corpuscular Volume 82.7 fL (80.0-100.0)
[2025-09-10 07:29] LABS: Hematocrit 22.4 % (41.0-53.0); Mean Corpuscular Hemoglobin 28.8 pg (28.0-32.0)
[2025-09-10 08:52] LABS: Nucleated Red Blood Cells % 7.0 %; Total Cells Counted 100.0 (100)
[2025-09-10 08:53] LABS: Anisocytosis Slight
[2025-09-10 08:54] LABS: Tear Drop Cells FEW
--- NOTE | 2025-09-10 14:40 | DVHPN2 ---
Reviewed: Care Plan Changes from previous H/P or p: No Changes Eyes: No Pain, No Vision change, No Conjunctivae inflammation, No Eyelid inflammation, No Other, No Redness ENT: No Ear pain, No Ear discharge, No Nose pain, No Nose discharge, No Nose congestion, No Mouth pain, No Mouth swelling, No Throat pain, No Throat swelling, No Other Cardiovascular: No Chest Pain, No Palpitations, No Orthopnea, No Paroxysmal Noc. Dyspnea, No Edema, No Lt Headedness, No Other Respiratory: No Cough, No Dry, No Shortness of breath, No SOB with excertion, No Wheezing, No Hemoptysis, No Pleuritic Pain, No Sputum, No Other Gastrointestinal: No Nausea, No Vomiting, No Abdominal Pain, No Diarrhea, No Constipation, No Melena, No Hematochezia, No Other Genitourinary: No Dysuria, No Frequency, No Incontinence, No Hematuria, No Retention, No Other Musculoskeletal: No other, No neck pain, No shoulder pain, No arm pain, No back pain, No hand pain, No leg pain, No foot pain Skin: No Rash, No Lesions, No Jaundice, No Bruising, No Other Objective Vitals Vital Signs Date Time Temp Pulse Resp B/P (MAP) Pulse Ox O2 Delivery O2 Flow Rate FiO2 09/10/25 12:00 55 15 137/47 (77) 98 09/10/25 08:00 98.3 98.3 09/10/25 07:20 Room Air* 0 21 Intake/Output Intake and Output 09/10/25 07:00 Intake Total 100 ml Output Total 900 ml Balance -800 ml Intake Oral 0 ml IV Total 100 ml Output Urine Total 900 ml Medications Current Medications Medications Dose Ordered Sig/Barron Route Start Time Stop Time Status Last Admin Dose Admin Acetaminophen 325 mg Q4HP PRN PO 09/08/25 19:30 Ondansetron HCl 4 mg Q4HP PRN IV 09/08/25 19:30 Docusate Sodium 100 mg BIDPRN PRN PO 09/08/25 19:30 Acetaminophen 650 mg Q6HP PRN PO 09/08/25 19:30 Nitroglycerin 0.4 mg Q5MINP PRN SL 09/08/25 20:45 Zolpidem Tartrate 5 mg HSPRN PRN PO 09/09/25 01:15 09/09/25 22:49 5 MG Ceftriaxone Sodium 50 ml @ 100 mls/hr DAILY@09 IV 09/09/25 20:00 09/10/25 09:27 100 MLS/HR Laboratory Results Laboratory Tests 09/09/25 03:55 09/10/25 05:59 Urinalysis Test 09/09/25 09:55 Urine Color Dark-yellow (Yellow) Urine Clarity Ex.turbid (Clear) Urine pH 6.5 (5.0-9.0) Urine Specific [place] 1.013 (1.001-1.035) Urine Protein 1+ (Negative) H Urine Ketones Negative (Negative) Urine Blood 1+ /uL (Negative) H Urine Nitrite 2+ (Negative) H Urine Bilirubin Negative (Negative) Urine Urobilinogen 2 mg/dL (Negative) H Urine Leukocyte Esterase 3+ /uL (Negative) Urine RBC 30 /hpf (0 - 3) Urine WBC Clumps Present /hpf (None Seen) Urine Microscopic WBC 2235 /HPF (0-3) H Urine Squamous Epithelial Cells None seen /hpf (<5) Urine Bacteria None seen /hpf (None Seen) Urine Mucus Few (None Seen) Urine Glucose Normal mg/dL (Normal) Microbiology Microbiology Date/Time Source Procedure Growth Status 09/09/25 15:50 Blood Blood Culture - Preliminary Resulted Labs and/or images reviewed: Labs reviewed by me, Image(s) reviewed by me Assessment/Plan Assessment/Plan Severe symptomatic anemia hemoglobin 6.2, improved to 7.8 after 2 units of RBC transfusion Chronic anemia requiring blood transfusions History of cancer Dementia UTI Thrombocytopenia 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 Plan discussed with: Patient My Orders Orders - KURTIS MONTANO MD Procedure Category Date Status Time Blood Culture MURALI 09/09/25 In Process 15:13 Urine Bacterial MURALI 09/09/25 In Process Culture 15:13 Ceftriaxone 1gm/50ml PHA 09/09/25 In Process (Rocephin) 20:00 Date of Service: Sep 10, 2025 Billing Provider: KURTIS MONTANO MD Common Visit Codes: [id number] INP/OBS CARE(HIGH) KURTIS MONTANO MD Sep 10, 2025 14:40
--- NOTE | 2025-09-10 14:44 | DVHDS2 ---
Discharge Summary Date of Admission Sep 08, 2025 at 20:33 Date of Discharge: Sep 10, 2025 Admitting Diagnosis Severe anemia Wounds: None Labs/Diagnostic Data: Laboratory Results Test 09/10/25 05:59 09/09/25 09:55 09/09/25 03:55 09/08/25 15:12 White Blood Count 6.9 10^3/uL (4.4-10.8) Red Blood Count 2.71 10^6/uL (4.5-5.90) Hemoglobin 7.8 g/dL (13.5-17.5) Hematocrit 22.4 % (41.0-53.0) Mean Corpuscular Volume 82.7 fL (80.0-100.0) Mean Corpuscular Hemoglobin 28.8 pg (28.0-32.0) Mean Corpuscular Hemoglobin Concent 34.8 g/dL (32.0-36.0) Red Cell Distribution Width 18.5 % (11.8-14.3) Platelet Count 34 10^3/uL (140-450) Mean Platelet Volume 7.8 fL (6.9-10.8) Neutrophils (%) (Auto) % (37.0-80.0) Lymphocytes (%) (Auto) % (10.0-50.0) Monocytes (%) (Auto) % (0.0-12.0) Basophils (%) (Auto) % (0.0-2.0) Neutrophils # (Auto) 10 ^3/uL (1.6-8.6) Lymphocytes # (Auto) 10 ^3/uL (0.4-5.4) Monocytes # (Auto) 10 ^3/uL (0-1.3) Differential Total Cells Counted 100.0 (100) Neutrophils % (Manual) 44 (37.0-80.0) Band Neutrophils % (Manual) 9 Lymphocytes % (Manual) 30 (10.0-50.0) Monocytes % (Manual) 16 (0-12) Eosinophils % (Manual) 0 (0-7) Basophils % (Manual) 0 (0.0-2.0) Metamyelocytes % (manual) 0 Myelocytes % (Manual) 0 Promyelocytes % (Manual) 0 Blast Cells % (Manual) 0 Nucleated Red Blood Cells 7.0 % Reactive Lymphocytes 1 Platelet Estimate Decreased Poikilocytosis (manual) Slight Anisocytosis (manual) Slight Tear Drop Cells Few Urine Color Dark-yellow (Yellow) Urine Clarity Ex.turbid (Clear) Urine pH 6.5 (5.0-9.0) Urine Specific [place] 1.013 (1.001-1.035) Urine Protein 1+ (Negative) Urine Ketones Negative (Negative) Urine Blood 1+ /uL (Negative) Urine Nitrite 2+ (Negative) Urine Bilirubin Negative (Negative) Urine Urobilinogen 2 mg/dL (Negative) Urine Leukocyte Esterase 3+ /uL (Negative) Urine RBC 30 /hpf (0 - 3) Urine WBC Clumps Present /hpf (None Seen) Urine Microscopic WBC 2235 /HPF (0-3) Urine Squamous Epithelial Cells None seen /hpf (<5) Urine Bacteria None seen /hpf (None Seen) Urine Mucus Few (None Seen) Urine Glucose Normal mg/dL (Normal) Eosinophils (%) (Auto) 0.1 % (0.0-7.0) Eosinophils # (Auto) 0 10 ^3/uL (0-0.8) Basophils # (Auto) 0.1 10 ^3/uL (0-0.2) Sodium Level 145 mmol/L (136-145) Potassium Level 3.2 mmol/L (3.5-5.1) Chloride Level 113 mmol/L (98-107) Carbon Dioxide Level 22 mmol/L (20-31) Anion Gap 10 (5-15) Blood Urea Nitrogen 14 mg/dL (9-23) Creatinine 0.78 mg/dL (0.700-1.30) Glomerular Filtration Rate Calc 96 mL/min (>90) BUN/Creatinine Ratio 17.9 (10.0-20.0) Serum Glucose 87 mg/dL (74-106) Calcium Level 8.8 mg/dL (8.7-10.4) Total Bilirubin 1.0 mg/dL (0.2-1.0) Aspartate Amino Transferase (AST) 33 U/L (13-40) Alanine Aminotransferase (ALT) < 9 U/L (7-40) Alkaline Phosphatase 168 U/L (46-116) Total Protein 6.3 g/dL (5.7-8.2) Albumin 3.4 g/dL (3.2-4.8) Schistocytes Few Troponin I High Sensitivity 5 ng/L (</=54) Other Laboratory Tests 09/10/25 05:59 09/09/25 03:55 Brief Hx & Hospital Course: Patient with history of myelofibrosis with recurrent blood transfusions from [facility] for generalized weakness. Hemoglobin was 6.2 improved to 7.8 after 2 units blood transfusion history of dementia thrombocytopenia anemia UTI. The patient feels better being discharged back to [facility] facility. at the bedside. General condition poor. 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 Moderate malnutrition Patient is full code Discharge Disposition: [facility] Facility Discharge Instruct/Medications Diet: Cardiac 2g Na,low cholest Activity: Light activity Follow Up/Referral: Follow up with the [facility] Dr Medications: see list Scheduled Amlodipine Besylate (Amlodipine Besylate), 1 TAB PO DAILY, (Reported) Ascorbic Acid (Vitamin C 500 mg), 1 TAB PO BID, (Reported) Atorvastatin Calcium (Atorvastatin Calcium), 1 TAB PO DAILY, (Reported) Clopidogrel Bisulfate (Clopidogrel), 1 TAB PO DAILY, (Reported) Cranberry Extract (Cranberry), 450 MG PO BID, (Reported) Folic Acid (Folic Acid), 1 TAB PO DAILY, (Reported) Lactobacillus (Probiotic Acidophilus), 1 CAP PO BID, (Reported) Memantine Hydrochloride (Memantine HCl), 1 TAB PO BID, (Reported) Scheduled PRN Zolpidem Tartrate (Ambien), 10 MG PO HSPRN PRN for FOR INSOMNIA, (Reported) Miscellaneous Medications Potassium Chloride (Potassium Chloride Cr), 20 MEQ PO, (Reported) Vitamin E (E1000), Unknown Dose PO, (Reported) Zinc Sulfate (Zinc Sulfate), 220 MG PO, (Reported) 39 (Time taken for discharge summary 39 minutes) Discharge Statement: "Patient was advised to return to the ER or call 911 if any headaches, dizziness, shortness of breath, chest pain, abdominal pain, bleeding, fevers, or worsening of medical condition. Patient was counseled about treatment plan, medications, possible side effects, patientverbalized understanding. All questions were answered to the best of my ability. 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
[2025-09-10 16:00] VITALS: BP 164/55; PULSE 55; RESP 14; TEMP 98.6; O2SAT 97
== END 2025-09-10 16:29 | disposition home or self-care (01) | DRG 811 ==
LOC: EDBD 14:52 → ER 14:52 → OVERFLOW 20:33 → TELE-CENTR 09-09 22:35 → OVERFLOW 09-09 23:44
PROVIDERS: ADMIT Family Medicine; ATTEND Family Medicine
PROC: 30233N1 Transfusion of Nonautologous Red Blood Cells into Peripheral Vein, Percutaneous Approach (ICD-10-PCS; principal; 2025-09-08)
DX: D46.9 Myelodysplastic syndrome, unspecified (principal); G93.41 Metabolic encephalopathy; E44.0 Moderate protein-calorie malnutrition; N39.0 Urinary tract infection, site not specified; E87.0 Hyperosmolality and hypernatremia; G30.9 Alzheimer's disease, unspecified; F02.80 Dementia in other diseases classified elsewhere, unspecified severity, without behavioral disturbance, psychotic disturbance, mood disturbance, and anxiety; D63.0 Anemia in neoplastic disease; D69.6 Thrombocytopenia, unspecified; R73.9 Hyperglycemia, unspecified; Z88.5 Allergy status to narcotic agent; Z79.899 Other long term (current) drug therapy; Z68.21 Body mass index [BMI] 21.0-21.9, adult
CPT/HCPCS: 36415; 71045; 80048; 80053; 81001; 84484; 85007; 85018; 85025; 85027; 86850; 86900; 86901; 86920; 87040; 87077; 87086; 87088; 87147; 87186; G0378

== ENCOUNTER 2025-09-27 13:29 | Inpatient (IN) | payer MEDICARE, MEDICAID ==
[~2025-09-27] VITALS: Ht 177.8 cm; Wt 58.5 kg
--- NOTE | 2025-09-27 13:52 | ED.PDOC ---
HPI (NEURO) HPI Comments 69 y/o M, BIBA, with PMHx of anemia, dementia, myofibrosis, CAD, COPD, HTN, and HLD presents to the ED for CC of generalized weakness. EMS reports, patient is coming from [facility] where staff called d/t patient needing a routine blood transfusion d/t myofibrosis. Per EMS, patient is A&Ox2 and has only c/o weakness for multiple days. According to staff patient is transfused blood every [id number]. Last time labs were drawn were on 09/20/25 and Hbg levels were 7.7 and Hct was 7.2. No other symptoms or modifiers are obtainable at this time. Chief Complaint: General Weakness Time Seen by MD: 13:45 Reviewed Notes: Nurses Notes, End Packer Notes, Medications, Allergies Information Source: Emergency Med Personnel Mode of Arrival: EMS Severity: Moderate Dizziness/Weakness Severity: Bedridden Headache Severity: None Timing: Days Duration: Since onset Prehospital treatment: None Weakness Location: Generalized Symptoms: Weakness History of: Anemia Associated Signs and Symptoms: None Past Medical History PAST MEDICAL HISTORY: Anemia, CAD, Cancer, COPD, Dementia, High Lipids, HTN, NH, UTI'S Surgical History: Unknown Family History Family History: Reviewed,noncontributory to illness Social History Smoker: Non-Smoker Alcohol: Denies ETOH Use Drugs: Denies Drug Use Lives In: Prison Unable to Obtain due to: Dementia Physical Exam General Appearance: Mild Distress HEENT: Pale Conjuntivae (L), Pale Conjuntivae (R), Pharynx Normal, TMs Normal Neck: Full Range of Motion, Non-Tender, Normal, Normal Inspection Respiratory: Chest Non-Tender, Lungs Clear, No Accessory Muscle Use, No Respiratory Distress, Normal Breath Sounds Cardiovascular: No Edema, No JVD, No Murmur, No Gallop, Normal Peripheral Pulses, Regular Rate/Rhythm Breast Exam: Deferred Gastrointestinal: No Organomegaly, Non Tender, No Pulsatile Mass, Normal Bowel Sounds, Soft Genitalia: Deferred Pelvic: Deferred Rectal: Deferred Extremities: No calf tenderness, Normal capillary refill, No pedal edema Musculoskeletal : Apperance: Normal 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 Was a procedure done?: No Differential Diagnosis (SZ) Seizure: N/A General Weakness: Anemia, Dehydration, Electrolyte imbalance, Hypotension X-Ray, Labs, Meds, VS Vital Signs Date Time Temp Pulse Resp B/P (MAP) Pulse Ox O2 Delivery O2 Flow Rate FiO2 09/27/25 16:00 62 09/27/25 14:00 97.7 63 12 172/63 (99) 100 97.7 09/27/25 14:00 63 12 100 Room Air* 0 21 09/27/25 13:55 60 09/27/25 13:42 98.9 64 18 142/76 97 98.9 09/27/25 13:38 60 Lab Test 09/27/25 14:06 Range/Units White Blood Count 7.1 4.4-10.8 10^3/uL Red Blood Count 2.45 L 4.5-5.90 10^6/uL Hemoglobin 6.8 *L 13.5-17.5 g/dL Hematocrit 20.1 L 41.0-53.0 % Mean Corpuscular Volume 82.0 80.0-100.0 fL Mean Corpuscular Hemoglobin 27.9 L 28.0-32.0 pg Mean Corpuscular Hemoglobin Concent 34.0 32.0-36.0 g/dL Red Cell Distribution Width 20.3 H 11.8-14.3 % Platelet Count 43 L 140-450 10^3/uL Mean Platelet Volume 7.9 6.9-10.8 fL Neutrophils (%) (Auto) 46.4 37.0-80.0 % Lymphocytes (%) (Auto) 38.8 10.0-50.0 % Monocytes (%) (Auto) 13.3 H 0.0-12.0 % Eosinophils (%) (Auto) 0.3 0.0-7.0 % Basophils (%) (Auto) 1.2 0.0-2.0 % Neutrophils # (Auto) 3.3 1.6-8.6 10 ^3/uL Lymphocytes # (Auto) 2.8 0.4-5.4 10 ^3/uL Monocytes # (Auto) 0.9 0-1.3 10 ^3/uL Eosinophils # (Auto) 0 0-0.8 10 ^3/uL Basophils # (Auto) 0.1 0-0.2 10 ^3/uL Nucleated Red Blood Cells 9.7 % Platelet Estimate Decreased Large Platelets Few Poikilocytosis (manual) Slight Anisocytosis (manual) Moderate Ovalocytes Few Prothrombin Time 10.9 9.3-11.8 sec Prothrombin Time INR 1.03 0.9-1.15 Activated Partial Thromboplast Time 21.9 L 24.5-34.5 SEC IV Hep-Lock was established The patient's hemoglobin is 6.8 and hematocrit of 20.1 The chemistry panel is within normal limits. At this time, the patient will be typed and screened. The patient will now be transfused with 1 unit of packed red blood cells The patient is being admitted at this time Time of 1ST Reevaluation: 14:15 Reevaluation 1ST: Unchanged Patient Education/Counseling: Other (The patient is confused) Family Education/Counseling: Diagnosis, Treatment, Prognosis Departure 1 Departure Time of Disposition: 17:16 Impression: Primary Impression: Severe anemia Additional Impression: MDS (myelodysplastic syndrome) Disposition: ADMITTED INPATIENT Admit to: Med Surg Condition: Fair Critical Care Note Critical Care Time?: No Stability Stability form required: Yes Unstable for transfer: Telemetry monitoring (Telemetry monitoring required), ED Physician Assesment (Clinical assesment) Heart Score Heart Score: Heart Score Response (Comments) Value History N/A 0 EKG N/A 0 Age N/A 0 Risk Factors N/A 0 Troponin N/A 0 Total 0 I personally scribed for MICHAEL DIXON MD ([email or web address]) on 09/27/25 at 13:52. Electronically submitted by Lilli Kapoor ([employer]). I personally scribed for MICHAEL DIXON MD ([email or web address]) on 09/27/25 at 13:55. Electronically submitted by Lilli Kapoor ([employer]). I personally scribed for MICHAEL DIXON MD ([email or web address]) on 09/27/25 at 13:55. Electronically submitted by Lilli Kapoor ([employer]). I personally scribed for MICHAEL DIXON MD ([email or web address]) on 09/27/25 at 13:56. Electronically submitted by Lilli Kapoor ([email or web address]). MICHAEL DIXON MD Sep 27, 2025 13:52
[2025-09-27 14:00] VITALS: PULSE 63; RESP 12; O2SAT 100
[2025-09-27 15:04] LABS: INR 1.03 (0.9-1.15); Partial Thromboplastin Time 21.9 SEC (24.5-34.5); Prothrombin Time 10.9 sec (9.3-11.8)
[2025-09-27 15:39] LABS: Hematocrit 20.1 % (41.0-53.0); Mean Corpuscular Hemoglobin 27.9 pg (28.0-32.0); Mean Corpuscular Volume 82.0 fL (80.0-100.0)
--- NOTE | 2025-09-27 15:40 | ECG ---
[facility] Test Date: 2025-09-27 Test Time: 13:34:30 Pat Name: JOÃO STANTON [facility] Room: 0246T Gender: M Valve Technician: NALLELY : 1955 Requested By: MICHAEL DIXON Order Number: [id number] Reading MD: Oscar Pena Measurements Intervals [place] Rate: 60 P: 39 IL: 172 QRS: 2 QRSD: 97 T: 47 QT: 442 QTc: 442 Interpretive Statements Sinus rhythm Abnormal R-wave progression, early transition Electronically Signed On 10-01-2025 10:54:06 PST by Oscar Pena Please click the below link to view image of tracing.
[2025-09-27 15:44] LABS: Nucleated Red Blood Cells % 9.7 %
[2025-09-27 15:49] LABS: Hemoglobin 6.8 g/dL (13.5-17.5)
[2025-09-27 16:50] LABS: Anisocytosis Moderate
[2025-09-27 16:51] LABS: Ovalocytes FEW
[2025-09-27] MEDS ORDERED: NITROGLYCERIN 0.4 MG SL TAB SL PRN (17:00)
[2025-09-27] MEDS ORDERED: MORPHINE SULFATE INJ 2 MG/ml SYRG IV PRN ×2 (17:00)
[2025-09-27] MEDS ORDERED: HYDROcodone-ACET 5/325MG TAB PO PRN (17:00)
[2025-09-27] MEDS ORDERED: ONDANSETRON HCL 4 MG/2 ML VIAL IV PRN (17:00)
[2025-09-27] MEDS ORDERED: ACETAMINOPHEN 325 MG TAB PO PRN (17:00)
--- NOTE | 2025-09-27 17:05 | DVHHP2 ---
History of Present Illness HPI 69 y/o M, BIBA, with PMHx of anemia, dementia, myofibrosis, CAD, COPD, HTN, and HLD presents to the ED for CC of generalized weakness. EMS reports, patient is coming from [facility] where staff called d/t patient needing a routine blood transfusion d/t myofibrosis. Per EMS, patient is A&Ox2 and has only c/o weakness for multiple days. According to staff patient is transfused blood every [id number]. Last time labs were drawn were on 09/20/25 and Hbg levels were 7.7 and Hct was 7.2. No other symptoms or modifiers are obtainable at this time. Home Meds Reported Medications Lactobacillus (Probiotic Acidophilus) 1 Cap Cap, 1 CAP PO BID, CAP 08/17/25 Cranberry Extract (Cranberry) 450 Mg Tab, 450 MG PO BID, TAB 08/17/25 Vitamin E (E1000) 1,000 Unit Cap, PO for 30 Days, CAP 08/17/25 Zinc Sulfate (Zinc Sulfate) 220 Mg Tab, 220 MG PO for 30 Days, TAB 08/17/25 Ascorbic Acid (Vitamin C 500 mg) 1 Tab Tab, 1 TAB PO BID, TAB 08/17/25 Zolpidem Tartrate (Ambien) 10 Mg Tab, 10 MG PO HSPRN PRN for FOR INSOMNIA, TAB 08/17/25 Potassium Chloride (POTASSIUM CHLORIDE CR) 10 Meq Tb, 20 MEQ PO, TAB 06/23/25 Amlodipine Besylate (Amlodipine Besylate) 10 Mg Tab, 1 TAB PO DAILY 06/23/25 Clopidogrel Bisulfate (CLOPIDOGREL) 75 Mg Tab, 1 TAB PO DAILY 06/23/25 Folic Acid (Folic Acid) 1 Mg Tab, 1 TAB PO DAILY 06/23/25 Memantine Hydrochloride (Memantine HCl) 5 Mg Tab, 1 TAB PO BID 06/23/25 Atorvastatin Calcium (ATORVASTATIN CALCIUM) 40 Mg Tab, 1 TAB PO DAILY 06/23/25 Past Medical History Patient Family History: Diabetes mellitus G8 BROTHER FH: pulmonary embolism G8 MOTHER Hypertension G8 FATHER Review of Systems Constitutional: No symptom reported Eyes: No symptom reported Cardiovascular: No symptom reported Genitourinary: No symptom reported Musculoskeletal: No symptom reported H&P Exam Vital Signs Vital Signs Date Time Temp Pulse Resp B/P (MAP) Pulse Ox O2 Delivery O2 Flow Rate FiO2 09/27/25 16:00 62 09/27/25 14:00 97.7 12 172/63 (99) 100 97.7 09/27/25 14:00 Room Air* 0 21 General Appeara: Well developed, Well nourished Head Exam: Normal inspection Neck Exam: Normal inspection Pulmonary/Respiratory: Normal inspection SEPSIS Sepsis Screen Date sepsis recognized/suspect: Sep 27, 2025 Time Sepsis recognized/suspect: 1400 Recent Procedure: No On Antibiotic Therapy: No Respiratory Rate >20: No Heart Rate >90: No Temp<36 C (96.8 F) or >38.3 C: No SBP <90 or MAP <65 mmHG: No New Acute Mental Status Change: No Is the patient on CPAP, BIPAP,: No Physician Orders Complete Blood Count (09/27/25 13:47) Heplock Iv (09/27/25 13:47) Industrial Rehabilitation Consultant (09/27/25 13:47) Blood Pressure (09/27/25 13:47) Pulse Oximetry (09/27/25 13:47) Rbc Morphology (09/27/25 14:06) Obtain Consent For: (09/27/25 16:36) Packedcell-Noactive Bleeding (09/27/25 16:36) Administer Blood Products UD (09/27/25 16:36) Vital Signs Date Time Temp Pulse Resp B/P (MAP) Pulse Ox O2 Delivery O2 Flow Rate FiO2 09/27/25 16:00 62 09/27/25 14:00 97.7 63 12 172/63 (99) 100 97.7 09/27/25 14:00 63 12 100 Room Air* 0 21 09/27/25 13:55 60 09/27/25 13:42 98.9 64 18 142/76 97 98.9 09/27/25 13:38 60 Laboratory Tests Test 09/27/25 14:06 White Blood Count 7.1 10^3/uL (4.4-10.8) Labs/Xrays Labs Test 09/27/25 14:06 Range/Units White Blood Count 7.1 4.4-10.8 10^3/uL Red Blood Count 2.45 L 4.5-5.90 10^6/uL Hemoglobin 6.8 *L 13.5-17.5 g/dL Hematocrit 20.1 L 41.0-53.0 % Mean Corpuscular Volume 82.0 80.0-100.0 fL Mean Corpuscular Hemoglobin 27.9 L 28.0-32.0 pg Mean Corpuscular Hemoglobin Concent 34.0 32.0-36.0 g/dL Red Cell Distribution Width 20.3 H 11.8-14.3 % Platelet Count 43 L 140-450 10^3/uL Mean Platelet Volume 7.9 6.9-10.8 fL Neutrophils (%) (Auto) 46.4 37.0-80.0 % Lymphocytes (%) (Auto) 38.8 10.0-50.0 % Monocytes (%) (Auto) 13.3 H 0.0-12.0 % Eosinophils (%) (Auto) 0.3 0.0-7.0 % Basophils (%) (Auto) 1.2 0.0-2.0 % Neutrophils # (Auto) 3.3 1.6-8.6 10 ^3/uL Lymphocytes # (Auto) 2.8 0.4-5.4 10 ^3/uL Monocytes # (Auto) 0.9 0-1.3 10 ^3/uL Eosinophils # (Auto) 0 0-0.8 10 ^3/uL Basophils # (Auto) 0.1 0-0.2 10 ^3/uL Nucleated Red Blood Cells 9.7 % Prothrombin Time 10.9 9.3-11.8 sec Prothrombin Time INR 1.03 0.9-1.15 Activated Partial Thromboplast Time 21.9 L 24.5-34.5 SEC Assessment/Plan Primary Diagnosis 69 y/o M, BIBA, with PMHx of anemia, dementia, myofibrosis, CAD, COPD, HTN, and HLD presents to the ED for CC of generalized weakness. EMS reports, patient is coming from [facility] where staff called d/t patient needing a routine blood transfusion d/t myofibrosis. Per EMS, patient is A&Ox2 and has only c/o weakness for multiple days. According to staff patient is transfused blood every [id number]. Last time labs were drawn were on 09/20/25 and Hbg levels were 7.7 and Hct was 7.2. No other symptoms or modifiers are obtainable at this time. acute anemia GI bleeding weakness, worsening Severe normocytic normochromic anemia likely from myelofibrosis Thrombocytopenia History of coronary artery disease Dementia Constipation Hb below 7, transfuse 1 unit first and monitor Plan discussed with: Patient KIRBY SCOTT DO Sep 27, 2025 17:05
[2025-09-27 20:00] VITALS: PULSE 68; PULSE 72; RESP 16; O2SAT 96
[2025-09-27 21:00] VITALS: BP 164/71; PULSE 68; RESP 18; TEMP 98.2; O2SAT 96
[2025-09-27 22:40] VITALS: BP 165/69; PULSE 69; RESP 18; TEMP 98.6
[2025-09-27 23:00] VITALS: BP 156/65; PULSE 67; RESP 16; TEMP 97.8
[2025-09-27] MEDS: ZOLPIDEM TARTRATE 5 MG TAB PO ONE (23:43)
[2025-09-28] VITALS (10 sets, daily range): BP systolic 157–176; BP diastolic 56–83; PULSE 50–72; RESP 16–20; TEMP 97.9–99; O2SAT 97–98
[2025-09-28 07:49] LABS: Hematocrit 21.1 % (41.0-53.0); Hemoglobin 7.4 g/dL (13.5-17.5); Mean Corpuscular Volume 81.7 fL (80.0-100.0)
[2025-09-28 07:51] LABS: Mean Corpuscular Hemoglobin 28.6 pg (28.0-32.0)
[2025-09-28 08:05] LABS: Anion Gap 11 (5-15); BUN/Creatinine Ratio 20.3 (10.0-20.0); Bilirubin, Total 0.7 mg/dL (0.2-1.0); Blood Urea Nitrogen 15 mg/dL (9-23); Carbon Dioxide 22 mmol/L (20-31); Glucose 85 mg/dL (74-106); Potassium 3.8 mmol/L (3.5-5.1); Sodium 143 mmol/L (136-145); Total Protein 6.0 g/dL (5.7-8.2)
[2025-09-28 08:06] LABS: Alanine Aminotransferase < 9 U/L (7-40); Albumin 3.2 g/dL (3.2-4.8); Alkaline Phosphatase 178 U/L (46-116); Calcium 8.5 mg/dL (8.7-10.4); Chloride 110 mmol/L (98-107)
[2025-09-28 09:08] LABS: Total Cells Counted 100.0 (100)
[2025-09-28 09:09] LABS: Nucleated Red Blood Cells % 3.0 %
[2025-09-28 10:54] LABS: Hepatitis B Surface Antigen Negative (Negative)
[2025-09-28 11:23] LABS: Hepatitis C Antibody Negative (Negative)
--- NOTE | 2025-09-28 14:38 | DVHCONRES ---
Date Seen: Sep 28, 2025 Resident Creating Document: JHAJJ,SARPUNEET RESIDENT Referring Physician Dr Shannon Reason for Consultation Acute anemia History of Present Illness Patient is a 69-year-old male with a medical history of chronic anemia, myelofibrosis, coronary artery disease, COPD was brought from [facility] with a chief complaint of generalized weakness. Patient routinely gets blood transfusion every 3 weeks. Patient is A&O x1 and complains of weakness for a long time. As per the records from EMS patient was A&O x2 in the last time labs were drawn on 09/20/2025 and hemoglobin levels were 7.7. Past Medical History As per HPI Past Surgical History Unknown Family History: Diabetes mellitus G8 BROTHER FH: pulmonary embolism G8 MOTHER Hypertension G8 FATHER Family History Unknown Social History Lives in a nursing facility Allergies: Coded Allergies: Morphine (Verified Allergy, Unknown, 06/22/25) Home Meds Reported Medications Lactobacillus (Probiotic Acidophilus) 1 Cap Cap, 1 CAP PO BID, CAP 08/17/25 Cranberry Extract (Cranberry) 450 Mg Tab, 450 MG PO BID, TAB 08/17/25 Vitamin E (E1000) 1,000 Unit Cap, PO for 30 Days, CAP 08/17/25 Zinc Sulfate (Zinc Sulfate) 220 Mg Tab, 220 MG PO for 30 Days, TAB 08/17/25 Ascorbic Acid (Vitamin C 500 mg) 1 Tab Tab, 1 TAB PO BID, TAB 08/17/25 Zolpidem Tartrate (Ambien) 10 Mg Tab, 10 MG PO HSPRN PRN for FOR INSOMNIA, TAB 08/17/25 Potassium Chloride (POTASSIUM CHLORIDE CR) 10 Meq Tb, 20 MEQ PO, TAB 06/23/25 Amlodipine Besylate (Amlodipine Besylate) 10 Mg Tab, 1 TAB PO DAILY 06/23/25 Clopidogrel Bisulfate (CLOPIDOGREL) 75 Mg Tab, 1 TAB PO DAILY 06/23/25 Folic Acid (Folic Acid) 1 Mg Tab, 1 TAB PO DAILY 06/23/25 Memantine Hydrochloride (Memantine HCl) 5 Mg Tab, 1 TAB PO BID 06/23/25 Atorvastatin Calcium (ATORVASTATIN CALCIUM) 40 Mg Tab, 1 TAB PO DAILY 06/23/25 Current Medications Current Medications Medications (Trade) Dose Ordered Sig/Barron Route PRN Reason Start Time Stop Time Status Last Admin Acetaminophen/ Hydrocodone Bitart (House 5/325MG Tab) 1 tab Q4HP PRN PO MODERATE PAIN (4-6 PAIN SCALE) 09/27/25 17:00 Hold Ondansetron HCl (Zofran) 4 mg Q4HP PRN IV NAUSEA / VOMITING 09/27/25 17:00 Acetaminophen (Tylenol Tablet) 650 mg Q6HP PRN PO PAIN SCALE 1-3 OR TEMP>100.4 09/27/25 17:00 Morphine Sulfate 2 mg Q4HPRN PRN IV SEVERE PAIN (7-10 PAIN SCALE) 09/27/25 17:00 Hold Nitroglycerin (Ntrostat Sublingual) 0.4 mg Q5MINP PRN SL FOR CHEST PAIN 09/27/25 17:00 Morphine Sulfate 2 mg Q30M PRN IV FOR CHEST PAIN 09/27/25 17:00 Hold Review of Systems Patient seen and examined with the bedside Alert and oriented x1 Does not report of any acute complaints Vital Signs Vital Signs Date Time Temp Pulse Resp B/P (MAP) Pulse Ox O2 Delivery O2 Flow Rate FiO2 09/28/25 09:00 98.5 60 20 171/56 (94) 98 98.5 09/28/25 08:20 Room Air* 0 21 Physical Exam Gen - conjunctival pallor present, no scleral icterus Skin - Patients skin is warm and dry. HEENT - normocephalic, atraumatic, dry mucous membranes. Neck - supple, no lymphadenopathy Pulmonary - B/L clear breath sounds cardiovascular - regular S1,S2 heard GI - soft nontender abdomen. Bowel sounds normoactive. Neurological - Patient is alert and oriented x1. Labs/Diagnostic Data Labs Test 09/28/25 06:57 09/27/25 14:06 Range/Units White Blood Count 7.0 4.4-10.8 10^3/uL Red Blood Count 2.58 L 4.5-5.90 10^6/uL Hemoglobin 7.4 L 13.5-17.5 g/dL Hematocrit 21.1 L 41.0-53.0 % Mean Corpuscular Volume 81.7 80.0-100.0 fL Mean Corpuscular Hemoglobin 28.6 28.0-32.0 pg Mean Corpuscular Hemoglobin Concent 35.1 32.0-36.0 g/dL Red Cell Distribution Width 18.1 H 11.8-14.3 % Platelet Count 27 L 140-450 10^3/uL Mean Platelet Volume 7.9 6.9-10.8 fL Neutrophils (%) (Auto) 37.0-80.0 % Lymphocytes (%) (Auto) 10.0-50.0 % Monocytes (%) (Auto) 0.0-12.0 % Basophils (%) (Auto) 0.0-2.0 % Neutrophils # (Auto) 1.6-8.6 10 ^3/uL Lymphocytes # (Auto) 0.4-5.4 10 ^3/uL Monocytes # (Auto) 0-1.3 10 ^3/uL Differential Total Cells Counted 100.0 100 Neutrophils % (Manual) 35 L 37.0-80.0 Band Neutrophils % (Manual) 6 Lymphocytes % (Manual) 40 10.0-50.0 Monocytes % (Manual) 16 H 0-12 Eosinophils % (Manual) 0 0-7 Basophils % (Manual) 0 0.0-2.0 Metamyelocytes % (manual) 1 Myelocytes % (Manual) 1 Promyelocytes % (Manual) 0 Blast Cells % (Manual) 1 Nucleated Red Blood Cells 3.0 % Reactive Lymphocytes 0 Platelet Estimate Decreased Sodium Level 143 136-145 mmol/L Potassium Level 3.8 3.5-5.1 mmol/L Chloride Level 110 H 98-107 mmol/L Carbon Dioxide Level 22 20-31 mmol/L Anion Gap 11 5-15 Blood Urea Nitrogen 15 9-23 mg/dL Creatinine 0.74 0.700-1.30 mg/dL Glomerular Filtration Rate Calc 97 >90 mL/min BUN/Creatinine Ratio 20.3 H 10.0-20.0 Serum Glucose 85 74-106 mg/dL Calcium Level 8.5 L 8.7-10.4 mg/dL Total Bilirubin 0.7 0.2-1.0 mg/dL Aspartate Amino Transferase (AST) 38 13-40 U/L Alanine Aminotransferase (ALT) < 9 7-40 U/L Alkaline Phosphatase 178 H 46-116 U/L Total Protein 6.0 5.7-8.2 g/dL Albumin 3.2 3.2-4.8 g/dL Hepatitis B Surface Antigen Negative Negative Hepatitis C Antibody Negative Negative Eosinophils (%) (Auto) 0.3 0.0-7.0 % Eosinophils # (Auto) 0 0-0.8 10 ^3/uL Basophils # (Auto) 0.1 0-0.2 10 ^3/uL Large Platelets Few Poikilocytosis (manual) Slight Anisocytosis (manual) Moderate Ovalocytes Few Prothrombin Time 10.9 9.3-11.8 sec Prothrombin Time INR 1.03 0.9-1.15 Activated Partial Thromboplast Time 21.9 L 24.5-34.5 SEC Assessment Severe normocytic normochromic anemia likely from myelofibrosis Thrombocytopenia History of coronary artery disease Dementia Constipation Plan - blood transfusion has not needed - PUD prophylaxis with Protonix - patient has anemia likely from myelofibrosis and is chronic, no further endoscopic intervention needed - on pureed diet, patient to get swallow evaluation given altered mental status and diet to be advanced as tolerated Plan discussed with Dr. Johnston Plan discussed with: Other (JAMA Miller) YANNICK DEL CID RESIDENT Sep 28, 2025 14:38
[2025-09-28] MEDS: PANTOPRAZOLE 40 MG TAB PO ONE (17:09)
[2025-09-29] VITALS (8 sets, daily range): BP systolic 159–178; BP diastolic 76–81; PULSE 55–66; RESP 15–22; TEMP 36.9; O2SAT 96–99
[2025-09-29] MEDS: PANTOPRAZOLE 40 MG TAB PO SCH (05:42)
[2025-09-29 11:29] LABS: Hemoglobin 9.1 g/dL (13.5-17.5); Mean Corpuscular Hemoglobin 28.3 pg (28.0-32.0)
[2025-09-29 11:31] LABS: Hematocrit 26.7 % (41.0-53.0); Mean Corpuscular Volume 83.2 fL (80.0-100.0)
--- NOTE | 2025-09-29 11:45 | DVHPN2 ---
Progress Note Date Seen: Sep 28, 2025 Medical Necessity Reason Pt with a Central, PICC or Fol: No Subjective Review of Systems: HEENT:Normal, CVS:Normal, RESPIRATORY:Normal Objective vital signs Vital Sign Date Time Temp Pulse Resp B/P (MAP) Pulse Ox O2 Delivery O2 Flow Rate FiO2 09/29/25 09:00 98.6 59 22 178/80 (112) 97 98.6 09/28/25 20:00 Room Air* 0 21 Total Intake and Output 09/28/25 09/28/25 09/29/25 15:00 23:00 07:00 Intake Total 100 ml 900 ml Balance 100 ml 900 ml medications Current Medications Medications Dose Ordered Sig/Barron Route Start Time Stop Time Status Last Admin Dose Admin Acetaminophen/ Hydrocodone Bitart 1 tab Q4HP PRN PO 09/27/25 17:00 Hold Ondansetron HCl 4 mg Q4HP PRN IV 09/27/25 17:00 Acetaminophen 650 mg Q6HP PRN PO 09/27/25 17:00 Morphine Sulfate 2 mg Q4HPRN PRN IV 09/27/25 17:00 Hold Nitroglycerin 0.4 mg Q5MINP PRN SL 09/27/25 17:00 Morphine Sulfate 2 mg Q30M PRN IV 09/27/25 17:00 Hold Pantoprazole Sodium 40 mg DAILY@0600 PO 09/29/25 06:00 09/29/25 05:42 40 MG Examination: GENERAL:Normal, HEENT:Normal, NECK:Normal laboratory and microbiology Laboratory Tests 09/29/25 11:11 Test 09/29/25 11:11 Range/Units Serum Glucose Pending Microbiology Date/Time Source Procedure Growth Status 09/27/25 22:05 Nose MRSA Screen - Final Complete Labs and/or images reviewed: Labs reviewed by me, Image(s) reviewed by me Problem List/Assessment/Plan Problem List/Assessment/Plan 69 y/o M, BIBA, with PMHx of anemia, dementia, myofibrosis, CAD, COPD, HTN, and HLD presents to the ED for CC of generalized weakness. EMS reports, patient is coming from [facility] where staff called d/t patient needing a routine blood transfusion d/t myofibrosis. Per EMS, patient is A&Ox2 and has only c/o weakness for multiple days. According to staff patient is transfused blood every [id number]. Last time labs were drawn were on 09/20/25 and Hbg levels were 7.7 and Hct was 7.2. No other symptoms or modifiers are obtainable at this time. acute anemia GI bleeding weakness, worsening Severe normocytic normochromic anemia likely from myelofibrosis Thrombocytopenia History of coronary artery disease Dementia Constipation discussed with daughter who would like to have another unit of PRBC Plan discussed with: Patient, Daughter My Orders My Orders Orders - KIRBY SCOTT DO Procedure Category Date Status Time Cover Wound With Foam RONAN 09/28/25 In Process Dressing 15:00 Urinalysis LAB 09/28/25 Logged 17:02 Transfuse Blood ORDERS 09/28/25 Transmitted Product 17:02 Complete Blood Count LAB 09/29/25 In Process 08:45 Comprehensive LAB 09/29/25 In Process Metabolic Panel 08:45 Manual Differential LAB 09/29/25 In Process 11:11 CC Plasma Assessment Blood Product Administration S: [id number] KIRBY SCOTT DO Sep 29, 2025 11:45
[2025-09-29 11:47] LABS: Alanine Aminotransferase 10 U/L (7-40); Albumin 3.3 g/dL (3.2-4.8); Anion Gap 7 (5-15); BUN/Creatinine Ratio 16.9 (10.0-20.0); Blood Urea Nitrogen 13 mg/dL (9-23); Carbon Dioxide 24 mmol/L (20-31); Glucose 90 mg/dL (74-106); Potassium 3.8 mmol/L (3.5-5.1); Sodium 142 mmol/L (136-145); Total Protein 6.2 g/dL (5.7-8.2)
[2025-09-29 11:48] LABS: Bilirubin, Total 1.0 mg/dL (0.2-1.0)
--- NOTE | 2025-09-29 11:48 | DVHDS2 ---
Discharge Summary Date of Admission Sep 27, 2025 at 16:54 Date of Discharge: Sep 29, 2025 Labs/Diagnostic Data: Laboratory Results Test 09/29/25 11:11 09/28/25 06:57 09/27/25 14:06 White Blood Count 10.2 10^3/uL (4.4-10.8) Red Blood Count 3.21 10^6/uL (4.5-5.90) Hemoglobin 9.1 g/dL (13.5-17.5) Hematocrit 26.7 % (41.0-53.0) Mean Corpuscular Volume 83.2 fL (80.0-100.0) Mean Corpuscular Hemoglobin 28.3 pg (28.0-32.0) Mean Corpuscular Hemoglobin Concent 34.0 g/dL (32.0-36.0) Red Cell Distribution Width 17.7 % (11.8-14.3) Platelet Count 28 10^3/uL (140-450) Mean Platelet Volume 8.1 fL (6.9-10.8) Neutrophils (%) (Auto) % (37.0-80.0) Lymphocytes (%) (Auto) % (10.0-50.0) Monocytes (%) (Auto) % (0.0-12.0) Basophils (%) (Auto) % (0.0-2.0) Neutrophils # (Auto) 10 ^3/uL (1.6-8.6) Lymphocytes # (Auto) 10 ^3/uL (0.4-5.4) Monocytes # (Auto) 10 ^3/uL (0-1.3) Nucleated Red Blood Cells 3.0 % Hepatitis B Surface Antigen Negative (Negative) Hepatitis C Antibody Negative (Negative) Eosinophils (%) (Auto) 0.3 % (0.0-7.0) Eosinophils # (Auto) 0 10 ^3/uL (0-0.8) Basophils # (Auto) 0.1 10 ^3/uL (0-0.2) Large Platelets Few Poikilocytosis (manual) Slight Anisocytosis (manual) Moderate Ovalocytes Few Prothrombin Time 10.9 sec (9.3-11.8) Prothrombin Time INR 1.03 (0.9-1.15) Activated Partial Thromboplast Time 21.9 SEC (24.5-34.5) Other Laboratory Tests 09/29/25 11:11 Brief Hx & Hospital Course: 69 y/o M, BIBA, with PMHx of anemia, dementia, myofibrosis, CAD, COPD, HTN, and HLD presents to the ED for CC of generalized weakness. EMS reports, patient is coming from [facility] where staff called d/t patient needing a routine blood transfusion d/t myofibrosis. Per EMS, patient is A&Ox2 and has only c/o weakness for multiple days. According to staff patient is transfused blood every [id number]. Last time labs were drawn were on 09/20/25 and Hbg levels were 7.7 and Hct was 7.2. No other symptoms or modifiers are obtainable at this time. acute anemia GI bleeding weakness, worsening Severe normocytic normochromic anemia likely from myelofibrosis Thrombocytopenia History of coronary artery disease Dementia Constipation discussed with daughter who would like to have another unit of PRBC discharged back to [facility] Condition at Discharge: Fair Final Diagnosis/Problems List see above Discharge Disposition: Custodial Facility Discharge Instruct/Medications Diet: Cardiac 2g Na,low cholest Activity: No Restrictions, As Tolerated Scheduled Amlodipine Besylate (Amlodipine Besylate), 1 TAB PO DAILY, (Reported) Ascorbic Acid (Vitamin C 500 mg), 1 TAB PO BID, (Reported) Atorvastatin Calcium (Atorvastatin Calcium), 1 TAB PO DAILY, (Reported) Clopidogrel Bisulfate (Clopidogrel), 1 TAB PO DAILY, (Reported) Cranberry Extract (Cranberry), 450 MG PO BID, (Reported) Folic Acid (Folic Acid), 1 TAB PO DAILY, (Reported) Lactobacillus (Probiotic Acidophilus), 1 CAP PO BID, (Reported) Memantine Hydrochloride (Memantine HCl), 1 TAB PO BID, (Reported) Scheduled PRN Zolpidem Tartrate (Ambien), 10 MG PO HSPRN PRN for FOR INSOMNIA, (Reported) Miscellaneous Medications Potassium Chloride (Potassium Chloride Cr), 20 MEQ PO, (Reported) Vitamin E (E1000), Unknown Dose PO, (Reported) Zinc Sulfate (Zinc Sulfate), 220 MG PO, (Reported) Discharge Statement: "Patient was advised to return to the ER or call 911 if any headaches, dizziness, shortness of breath, chest pain, abdominal pain, bleeding, fevers, or worsening of medical condition. Patient was counseled about treatment plan, medications, possible side effects, patientverbalized understanding. All questions were answered to the best of my ability. This discharge took greater then 30 minutes in planning, reviewing documentation, counseling the patient, and discussing with other team members." ASSESSMENT ASSESSMENT Assessment KIRBY SCOTT DO Sep 29, 2025 11:48
[2025-09-29 11:54] LABS: Nucleated Red Blood Cells % 9.0 %; Total Cells Counted 100.0 (100)
[2025-09-29 11:56] LABS: Alkaline Phosphatase 186 U/L (46-116); Calcium 8.4 mg/dL (8.7-10.4); Chloride 111 mmol/L (98-107)
--- NOTE | 2025-09-29 13:50 | DVHPN2 ---
Progress Note Date Seen: Sep 29, 2025 Resident Creating Document: YANNICK DEL CID RESIDENT Medical Necessity Reason Pt with a Central, PICC or Fol: No Subjective Review of Systems Patient seen and examined with the bedside Alert and oriented x1 Does not report of any acute complaints Three bowel movements reported since yesterday Objective vital signs Vital Sign Date Time Temp Pulse Resp B/P (MAP) Pulse Ox O2 Delivery O2 Flow Rate FiO2 09/29/25 13:00 98.5 61 20 164/80 (108) 98 98.5 09/29/25 08:00 Room Air* 0 21 Total Intake and Output 09/28/25 09/28/25 09/29/25 15:00 23:00 07:00 Intake Total 100 ml 900 ml Balance 100 ml 900 ml medications Current Medications Medications Dose Ordered Sig/Barron Route Start Time Stop Time Status Last Admin Dose Admin Acetaminophen/ Hydrocodone Bitart 1 tab Q4HP PRN PO 09/27/25 17:00 Hold Ondansetron HCl 4 mg Q4HP PRN IV 09/27/25 17:00 Acetaminophen 650 mg Q6HP PRN PO 09/27/25 17:00 Morphine Sulfate 2 mg Q4HPRN PRN IV 09/27/25 17:00 Hold Nitroglycerin 0.4 mg Q5MINP PRN SL 09/27/25 17:00 Morphine Sulfate 2 mg Q30M PRN IV 09/27/25 17:00 Hold Pantoprazole Sodium 40 mg DAILY@0600 PO 09/29/25 06:00 09/29/25 05:42 40 MG Examination Gen - conjunctival pallor present, no scleral icterus Skin - Patients skin is warm and dry. HEENT - normocephalic, atraumatic, dry mucous membranes. Neck - supple, no lymphadenopathy Pulmonary - B/L clear breath sounds cardiovascular - regular S1,S2 heard GI - soft nontender abdomen. Bowel sounds normoactive. Neurological - Patient is alert and oriented x1. laboratory and microbiology Laboratory Tests 09/29/25 11:11 Test 09/29/25 11:11 Range/Units Serum Glucose 90 74-106 mg/dL Microbiology Date/Time Source Procedure Growth Status 09/27/25 22:05 Nose MRSA Screen - Final Complete Problem List/Assessment/Plan Problem List/Assessment/Plan Severe normocytic normochromic anemia likely from myelofibrosis Thrombocytopenia History of coronary artery disease Dementia Constipation Plan - patient got 2 PRBCs - PUD prophylaxis with Protonix - patient has anemia likely from myelofibrosis and is chronic, no further endoscopic intervention needed - on pureed diet, tolerating well Plan discussed with Dr. Johnston Plan discussed with: Other (JAMA Miller) My Orders My Orders Orders - YANNICK DEL CID Procedure Category Date Status Time Pantoprazole Tablet PHA 09/29/25 In Process (Protonix Tablet) 06:00 * Swallow Request ST 09/28/25 Transmitted 14:58 Pureed DIET 09/28/25 Transmitted Dinner CC Plasma Assessment Blood Product Administration S: [id number] YANNICK DEL CID RESIDENT Sep 29, 2025 13:50
== END 2025-09-29 16:44 | DRG 378 ==
LOC: EDBD 13:29 → ER 13:29 → OVERFLOW 16:54 → TELE-EAST 18:40
PROVIDERS: ADMIT Internal Medicine; ATTEND Internal Medicine
PROC: 30233N1 Transfusion of Nonautologous Red Blood Cells into Peripheral Vein, Percutaneous Approach (ICD-10-PCS; principal; 2025-09-27)
DX: K29.01 Acute gastritis with bleeding (principal); D75.81 Myelofibrosis; D69.6 Thrombocytopenia, unspecified; I10 Essential (primary) hypertension; J44.9 Chronic obstructive pulmonary disease, unspecified; F03.90 Unspecified dementia, unspecified severity, without behavioral disturbance, psychotic disturbance, mood disturbance, and anxiety; K59.09 Other constipation; E78.5 Hyperlipidemia, unspecified; I25.10 Atherosclerotic heart disease of native coronary artery without angina pectoris; I25.2 Old myocardial infarction; Z82.49 Family history of ischemic heart disease and other diseases of the circulatory system; Z83.3 Family history of diabetes mellitus
CPT/HCPCS: 36415; 36430; 80053; 85007; 85025; 85027; 85610; 85730; 86803; 86850; 86900; 86901; 86920; 87081; 87340; 93005; G0378

== ENCOUNTER 2025-10-13 14:46 | Inpatient (IN) | payer MEDICARE, MEDICAID ==
[~2025-10-13] VITALS: Ht 167.6 cm; Wt 53.1 kg
[2025-10-13 15:30] VITALS: RESP 16; O2SAT 95
--- NOTE | 2025-10-13 16:15 | ED.PDOC ---
History of Present Illness HPI Comments 70 y.o male presents to the ED via EMS of an evaluation of generalized weakness. Patient is coming from [facility] where he currently resides. Staff reported that patient had gotten blood work done 2 weeks ago and results came back 5 days ago with a HGB reading of 7.2. Family at bedside reports patient usually gets confused when HGB is low. Patient presents lethargic to the ED. He has a medical history of anemia, blood transfusions, and dementia. Chief Complaint: General Weakness Time Seen by MD: 16:00 Reviewed Notes: Nurses Notes, Medications, Allergies Allergies: Coded Allergies: Morphine (Verified Allergy, Unknown, 06/22/25) Home Meds Reported Medications Lactobacillus (Probiotic Acidophilus) 1 Cap Cap, 1 CAP PO BID, CAP 08/17/25 Cranberry Extract (Cranberry) 450 Mg Tab, 450 MG PO BID, TAB 08/17/25 Vitamin E (E1000) 1,000 Unit Cap, PO for 30 Days, CAP 08/17/25 Zinc Sulfate (Zinc Sulfate) 220 Mg Tab, 220 MG PO for 30 Days, TAB 08/17/25 Ascorbic Acid (Vitamin C 500 mg) 1 Tab Tab, 1 TAB PO BID, TAB 08/17/25 Zolpidem Tartrate (Ambien) 10 Mg Tab, 10 MG PO HSPRN PRN for FOR INSOMNIA, TAB 08/17/25 Potassium Chloride (POTASSIUM CHLORIDE CR) 10 Meq Tb, 20 MEQ PO, TAB 06/23/25 Amlodipine Besylate (Amlodipine Besylate) 10 Mg Tab, 1 TAB PO DAILY 06/23/25 Clopidogrel Bisulfate (CLOPIDOGREL) 75 Mg Tab, 1 TAB PO DAILY 06/23/25 Folic Acid (Folic Acid) 1 Mg Tab, 1 TAB PO DAILY 06/23/25 Memantine Hydrochloride (Memantine HCl) 5 Mg Tab, 1 TAB PO BID 06/23/25 Atorvastatin Calcium (ATORVASTATIN CALCIUM) 40 Mg Tab, 1 TAB PO DAILY 06/23/25 Information Source: Patient Mode of Arrival: EMS Severity: Moderate Timing: Days Duration: Since onset Past Medical History PAST MEDICAL HISTORY: Anemia, CAD, Cancer, COPD, Dementia, High Lipids, HTN, SC, UTI'S Surgical History: Unknown Family History Family History: Reviewed,noncontributory to illness Social History Smoker: Non-Smoker Alcohol: Denies ETOH Use Drugs: Denies Drug Use Lives In: Prison Unable to Obtain due to: Dementia Physical Exam General Appearance: No Apparent Distress, Normal HEENT: Normal ENT Inspection, Pharynx Normal, TMs Normal Neck: Full Range of Motion, Non-Tender, Normal, Normal Inspection Respiratory: Chest Non-Tender, Lungs Clear, No Accessory Muscle Use, No Respiratory Distress, Normal Breath Sounds Cardiovascular: No Edema, No JVD, No Murmur, No Gallop, Normal Peripheral Pulses, Regular Rate/Rhythm Breast Exam: Deferred Gastrointestinal: No Organomegaly, Non Tender, No Pulsatile Mass, Normal Bowel Sounds, Soft Genitalia: Deferred Pelvic: Deferred Rectal: Deferred Extremities: No calf tenderness, Normal capillary refill, Normal inspection, Normal range of motion, Non-tender, No pedal edema Musculoskeletal : Apperance: Normal Neurologic: Alert, ent surgeon II-XII nml as Tested, No Motor Deficits, Normal Affect, Normal Mood, No Sensory Deficits Cerebellar Function: Normal Reflexes: Normal Skin: Dry, Normal Color, Warm Lymphatic: No Adenopathy Was a procedure done? Was a procedure done?: No Differential Dx Considerations may include: Anemia, Dehydration, Electrolyte Imbalance, viral syndrome X-Ray, Labs, Meds, VS Vital Signs Date Time Temp Pulse Resp B/P (MAP) Pulse Ox O2 Delivery O2 Flow Rate FiO2 10/13/25 15:30 16 95 Room Air* 0 21 10/13/25 15:30 98.2 61 15 124/52 (76) 100 98.2 10/13/25 14:55 98.0 64 16 130/72 98 98.0 Lab Test 10/13/25 18:40 10/13/25 17:45 10/13/25 16:55 Range/Units Urine Color Pending Urine Clarity Pending Urine pH Pending Urine Specific [place] Pending Urine Protein Pending Urine Ketones Pending Urine Blood Pending Urine Nitrite Pending Urine Bilirubin Pending Urine Urobilinogen Pending Urine Leukocyte Esterase Pending Urine RBC Pending Urine Microscopic WBC Pending Urine Squamous Epithelial Cells Pending Urine Bacteria Pending Urine Glucose Pending Troponin I High Sensitivity 4 5 </=54 ng/L White Blood Count 10.0 4.4-10.8 10^3/uL Red Blood Count 2.64 L 4.5-5.90 10^6/uL Hemoglobin 7.5 L 13.5-17.5 g/dL Hematocrit 21.9 L 41.0-53.0 % Mean Corpuscular Volume 82.8 80.0-100.0 fL Mean Corpuscular Hemoglobin 28.2 28.0-32.0 pg Mean Corpuscular Hemoglobin Concent 34.1 32.0-36.0 g/dL Red Cell Distribution Width 19.5 H 11.8-14.3 % Platelet Count 67 L 140-450 10^3/uL Mean Platelet Volume 7.4 6.9-10.8 fL Neutrophils (%) (Auto) 37.0-80.0 % Lymphocytes (%) (Auto) 10.0-50.0 % Monocytes (%) (Auto) 0.0-12.0 % Basophils (%) (Auto) 0.0-2.0 % Neutrophils # (Auto) 1.6-8.6 10 ^3/uL Lymphocytes # (Auto) 0.4-5.4 10 ^3/uL Monocytes # (Auto) 0-1.3 10 ^3/uL Differential Total Cells Counted Pending Neutrophils % (Manual) Pending Band Neutrophils % (Manual) Pending Lymphocytes % (Manual) Pending Monocytes % (Manual) Pending Eosinophils % (Manual) Pending Basophils % (Manual) Pending Metamyelocytes % (manual) Pending Myelocytes % (Manual) Pending Promyelocytes % (Manual) Pending Blast Cells % (Manual) Pending Nucleated Red Blood Cells % Reactive Lymphocytes Pending Platelet Estimate Pending Sodium Level 146 H 136-145 mmol/L Potassium Level 4.9 3.5-5.1 mmol/L Chloride Level 108 H 98-107 mmol/L Carbon Dioxide Level 26 20-31 mmol/L Anion Gap 12 5-15 Blood Urea Nitrogen 29 H 9-23 mg/dL Creatinine 1.15 0.700-1.30 mg/dL Glomerular Filtration Rate Calc 68 >90 mL/min BUN/Creatinine Ratio 25.2 H 10.0-20.0 Serum Glucose 82 74-106 mg/dL Calcium Level 8.6 L 8.7-10.4 mg/dL Total Bilirubin 0.5 0.2-1.0 mg/dL Aspartate Amino Transferase (AST) 38 13-40 U/L Alanine Aminotransferase (ALT) 13 7-40 U/L Alkaline Phosphatase 191 H 46-116 U/L B-Type Natriuretic Peptide 217.35 0-100 pg/mL Total Protein 6.1 5.7-8.2 g/dL Albumin 3.5 3.2-4.8 g/dL Time of 1ST Reevaluation: 16:15 Reevaluation 1ST: Unchanged Patient Education/Counseling: Other Family Education/Counseling: Diagnosis, Treatment, Prognosis SEPSIS Sepsis Screen Date sepsis recognized/suspect: Oct 13, 2025 Time Sepsis recognized/suspect: 1502 Recent Procedure: No On Antibiotic Therapy: No Respiratory Rate >20: No Heart Rate >90: No Temp<36 C (96.8 F) or >38.3 C: No SBP <90 or MAP <65 mmHG: No New Acute Mental Status Change: No Is the patient on CPAP, BIPAP,: No Physician Orders Type And Screen (10/13/25 16:01) Complete Blood Count (10/13/25 16:01) Chest Portable (10/13/25 16:01) Troponin-I Hs (10/13/25 19:01) Manual Differential (10/13/25 16:55) Head Without Contrast (10/13/25 17:50) Insert Park Catheter QSHIFT (10/13/25 17:50) Vital Signs Date Time Temp Pulse Resp B/P (MAP) Pulse Ox O2 Delivery O2 Flow Rate FiO2 10/13/25 15:30 16 95 Room Air* 0 21 10/13/25 15:30 98.2 61 15 124/52 (76) 100 98.2 10/13/25 14:55 98.0 64 16 130/72 98 98.0 Laboratory Tests Test 10/13/25 16:55 White Blood Count 10.0 10^3/uL (4.4-10.8) Departure 1 Departure Time of Disposition: 19:33 (Patient has had several days of worsening g eneralized weakness and altered mental status. Patient's workup is concerning for a chronic lacunar infarct versus worsening lacunar infarcts. Patient has had the window for any acute intervention. This patient's anemia is out of the low requiring blood transfusions. We will admit patient for further workup and expert consultation) Impression: Primary Impression: Acute metabolic encephalopathy Additional Impressions: Myelodysplastic syndrome Generalized weakness Disposition: ADMITTED INPATIENT Admit to: [facility] Condition: Guarded Critical Care Note Critical Care Time?: Yes Critical care comment: Altered mental status Authorized and Performed by: Ramon Simmons MD Total critical care time: Approximately 42 minutes Due to a high probability of clinically significant, life threatening deterioration, the patient required my highest level of preparedness to intervene emergently and I personally spent this critical care time directly and personally managing the patient. This critical care time included obtaining a history; examining the patient; pulse oximetry; ordering and review of studies; arranging urgent treatment with development of a management plan; evaluation of patient's response to treatment; frequent reassessment; and, discussions with other providers. This critical care time was performed to assess and manage the high probability of imminent, life-threatening deterioration that could result in multi-organ failure. It was exclusive of separately billable procedures and treating other patients and teaching time. Please see my other sections and the rest of the note for further information on patient assessment and treatment. Stability Stability form required: No I personally scribed for RAMON SIMMONS MD ([email or web address]) on 10/13/25 at 16:15. Electronically submitted by Joelle Lopez ([facility]). RAMON SIMMONS MD Oct 13, 2025 16:15
--- NOTE | 2025-10-13 16:36 | DVH ---
CHEST RADIOGRAPH Indication: weakness Technique: Single frontal view of the chest was obtained Comparison: XY CHEST PORTABLE on DOS: 09/08/25, XY CHEST PORTABLE on DOS: 07/19/25 FINDINGS: Lines and Tubes: None Lungs: No focal consolidation. Pleura: No effusion. No pneumothorax. Cardiomediastinal contours: Appearance of the cardiac silhouette appears to be a difference in film technique with increased lordotic positioning and rotation. Consider repeat chest x-ray if infiltrate is of clinical concern Bones: No acute osseous abnormality. IMPRESSION: 1. Increased lordotic position and patient rotation.
[2025-10-13 17:25] LABS: Hematocrit 21.9 % (41.0-53.0); Hemoglobin 7.5 g/dL (13.5-17.5); Mean Corpuscular Hemoglobin 28.2 pg (28.0-32.0); Mean Corpuscular Volume 82.8 fL (80.0-100.0)
[2025-10-13 17:40] LABS: Alanine Aminotransferase 13 U/L (7-40); Albumin 3.5 g/dL (3.2-4.8); Anion Gap 12 (5-15); BUN/Creatinine Ratio 25.2 (10.0-20.0); Carbon Dioxide 26 mmol/L (20-31); Glucose 82 mg/dL (74-106); Potassium 4.9 mmol/L (3.5-5.1); Total Protein 6.1 g/dL (5.7-8.2)
[2025-10-13 17:41] LABS: Bilirubin, Total 0.5 mg/dL (0.2-1.0)
[2025-10-13 17:47] LABS: Alkaline Phosphatase 191 U/L (46-116); Blood Urea Nitrogen 29 mg/dL (9-23); Calcium 8.6 mg/dL (8.7-10.4); Chloride 108 mmol/L (98-107); Sodium 146 mmol/L (136-145)
--- NOTE | 2025-10-13 18:45 | DVH ---
EXAM: CT HEAD WITHOUT CONTRAST INDICATION: [facility] TECHNIQUE: CT images of the head were obtained without administration of IV contrast. CT scans at this facility use dose modulation, iterative reconstruction, and/or weight based dosing when appropriate to reduce radiation dose to as low as reasonably achievable. COMPARISON: None FINDINGS: PARENCHYMA: No acute hemorrhage. There is no mass effect, midline shift, or herniation. Inconspicuous area of relatively more prominent hypoattenuation along the left anterior centrum semiovale and right posterior centrum semiovale which may reflect chronic microvascular ischemic change however areas of developing lacunar infarctions not excluded . Mild scattered hypoattenuation along the periventricular, centrum semiovale, and deep white matter tracts, which are nonspecific however statistically most likely represent chronic microvascular ischemic change. VENTRICLES: No hydrocephalus. EXTRA-AXIAL SPACES: No extra-axial fluid collections. OTHER: The bony structures are intact. Visualized portions of the paranasal sinuses and mastoid air cells are clear. IMPRESSION: 1. No CT evidence of an acute intracranial hemorrhage. 2. Inconspicuous area of relatively more prominent hypoattenuation along the left anterior centrum semiovale and right posterior centrum semiovale which may reflect chronic microvascular ischemic change however areas of developing lacunar infarctions not excluded.
[2025-10-13 19:29] LABS: Urine Protein, UAD 1+ (Negative)
[2025-10-13 20:01] LABS: Nucleated Red Blood Cells % 4.0 %
--- NOTE | 2025-10-13 20:22 | DVHHP2 ---
History of Present Illness Reason for Visit: Acute metabolic encephalopathy History of Present Illness The patient is a 70-year-old male with multiple past medical history including anemia, Coronary artery disease, COPD, dementia, and hypertension who presented to [facility] ED for evaluation of generalized weakness. As reported, patient is residing at [facility] where staff member reported patient's abnormal lab results hemoglobin of 7.2 from lab work five days ago. Patient was noted to be lethargic and confused. Patient was seen and evaluated in the ED, laboratory data shows WBC 10.0, hemoglobin 7.5, hematocrit 21.9, platelets [id number], sodium 146, potassium 4.9, BUN 29, creatinine 1.15, GFR 68, glucose 82, calcium 8.6, BNP 217.35, alkaline phos 191, total bilirubin 0.5, troponin 5, blood pressure 124/52, heart rate 62, temperature 98.2 F, O2 saturation 99% on room air. Head CT showed no evidence of acute intracranial hemorrhage. Please see medication orders section in the computer. On my assessment, patient denied chest pain, no headache, dizziness, diaphoresis, shor tness of breaths, no diarrhea, nausea, vomiting, fever, no chills. Patient was admitted for further evaluation and medical management. Past Medical History Anemia, CAD, Cancer, COPD, Dementia, High Lipids, HTN, ID, UTI'S Past Surgical History Unobtainable Family History Reviewed, noncontributory to the management of this case. Past Social History The patient lives at home, denies smoking, alcohol or illicit drugs abuse. Review of Systems Constitutional: Yes: Weakness, Other (Fatigue); No: Fever, Chills, Sweats, Malaise Eyes: No: Pain, Vision change, Conjunctivae inflammation, Eyelid inflammation, Other, Redness ENT: No: Ear pain, Ear discharge, Nose pain, Nose discharge, Nose congestion, Mouth pain, Mouth swelling, Throat pain, Throat swelling, Other Respiratory: No: Cough, Dry, Shortness of breath, SOB with excertion, Wheezing, Hemoptysis, Pleuritic Pain, Sputum, Wheezing, Other Cardiovascular: No: Chest Pain, Palpitations, Orthopnea, Paroxysmal Noc. Dyspnea, Edema, Lt Headedness, Other Gastrointestinal: No: Nausea, Vomiting, Abdominal Pain, Diarrhea, Constipation, Melena, Hematochezia, Other Genitourinary: No Dysuria, No Frequency, No Incontinence, No Hematuria, No Retention, No Other Musculoskeletal: No: other, neck pain, shoulder pain, arm pain, back pain, hand pain, leg pain, foot pain Skin: No: Rash, Lesions, Jaundice, Bruising, Other Neurological: Confusion; No: Weakness, Numbness, Incoordination, Change in speech, Seizures, Other Allergies: Coded Allergies: Morphine (Verified Allergy, Unknown, 06/22/25) Exam Vital Signs Vital Signs Date Time Temp Pulse Resp B/P (MAP) Pulse Ox O2 Delivery O2 Flow Rate FiO2 10/13/25 15:30 16 95 Room Air* 0 21 10/13/25 15:30 98.2 61 124/52 (76) 98.2 General Appearance: Alert, Cooperative, No acute distress, Other (Oriented x2) HEENT: Atraumatic, PERRLA, EOMI, Mucous membr. moist/pink Respiratory: Normal air movement Cardiovascular: Regular rate, Normal S1, Normal S2, No murmurs Abdominal: Normal bowel sounds, Soft, No tenderness, No hepatospenomegaly, No masses Extremities: No clubbing, No cyanosis, No edema, Normal pulses, No tenderness/swelling Skin: No rashes, No significant lesion Neuro: Normal speech, Normal tone, Sensation intact, Cranial nerves 3-12 NL, Reflexes 2+, Other (Generalized weakness) Psych/Mental Status: Mental status NL, Mood NL Labs/Xrays Labs Test 10/13/25 19:41 10/13/25 18:40 10/13/25 16:55 Range/Units Urine Color Light-yellow Yellow Urine Clarity Clear Clear Urine pH 6.5 5.0-9.0 Urine Specific [place] 1.015 1.001-1.035 Urine Protein 1+ H Negative Urine Ketones Negative Negative Urine Blood Negative Negative /uL Urine Nitrite Negative Negative Urine Bilirubin Negative Negative Urine Urobilinogen Normal Negative mg/dL Urine Leukocyte Esterase Negative Negative /uL Urine RBC 1 0 - 3 /hpf Urine Microscopic WBC 1 0-3 /HPF Urine Squamous Epithelial Cells None seen <5 /hpf Urine Bacteria None seen None Seen /hpf Urine Glucose Normal Normal mg/dL White Blood Count 10.0 4.4-10.8 10^3/uL Red Blood Count 2.64 L 4.5-5.90 10^6/uL Hemoglobin 7.5 L 13.5-17.5 g/dL Hematocrit 21.9 L 41.0-53.0 % Mean Corpuscular Volume 82.8 80.0-100.0 fL Mean Corpuscular Hemoglobin 28.2 28.0-32.0 pg Mean Corpuscular Hemoglobin Concent 34.1 32.0-36.0 g/dL Red Cell Distribution Width 19.5 H 11.8-14.3 % Platelet Count 67 L 140-450 10^3/uL Mean Platelet Volume 7.4 6.9-10.8 fL Neutrophils (%) (Auto) 37.0-80.0 % Lymphocytes (%) (Auto) 10.0-50.0 % Monocytes (%) (Auto) 0.0-12.0 % Basophils (%) (Auto) 0.0-2.0 % Neutrophils # (Auto) 1.6-8.6 10 ^3/uL Lymphocytes # (Auto) 0.4-5.4 10 ^3/uL Monocytes # (Auto) 0-1.3 10 ^3/uL Sodium Level 146 H 136-145 mmol/L Potassium Level 4.9 3.5-5.1 mmol/L Chloride Level 108 H 98-107 mmol/L Carbon Dioxide Level 26 20-31 mmol/L Anion Gap 12 5-15 Blood Urea Nitrogen 29 H 9-23 mg/dL Creatinine 1.15 0.700-1.30 mg/dL Glomerular Filtration Rate Calc 68 >90 mL/min BUN/Creatinine Ratio 25.2 H 10.0-20.0 Serum Glucose 82 74-106 mg/dL Calcium Level 8.6 L 8.7-10.4 mg/dL Total Bilirubin 0.5 0.2-1.0 mg/dL Aspartate Amino Transferase (AST) 38 13-40 U/L Alanine Aminotransferase (ALT) 13 7-40 U/L Alkaline Phosphatase 191 H 46-116 U/L B-Type Natriuretic Peptide 217.35 0-100 pg/mL Total Protein 6.1 5.7-8.2 g/dL Albumin 3.5 3.2-4.8 g/dL PATIENT: JOÃO STANTON ACCT: [id number] UNIT: [id number] : 1955 LOC: ER ROOM / BED: / AGE / SEX: 70 / M ADM STATUS: REG ER SERVICE 1750 ORDERING PHYSICIAN: RAMON SIMMONS MD PROCEDURE(s): HWOCT - HEAD WITHOUT CONTRAST REASON: ams ORDER NUMBER(s): [id number], ACCESSION NUMBER(s): [id number] EXAM: CT HEAD WITHOUT CONTRAST INDICATION: ams TECHNIQUE: CT images of the head were obtained without administration of IV contrast. CT scans at this facility use dose modulation, iterative reconstruction, and/or weight based dosing when appropriate to reduce radiation dose to as low as reasonably achievable. COMPARISON: None FINDINGS: PARENCHYMA: No acute hemorrhage. There is no mass effect, midline shift, or herniation. Inconspicuous area of relatively more prominent hypoattenuation along the left anterior centrum semiovale and right posterior centrum semiovale which may reflect chronic microvascular ischemic change however areas of developing lacunar infarctions not excluded. Mild scattered hypoattenuation along the periventricular, centrum semiovale, and deep white matter tracts, which are nonspecific however statistically most likely represent chronic microvascular ischemic change. VENTRICLES: No hydrocephalus. EXTRA-AXIAL SPACES: No extra-axial fluid collections. OTHER: The bony structures are intact. Visualized portions of the paranasal sinuses and mastoid air cells are clear. IMPRESSION: 1. No CT evidence of an acute intracranial hemorrhage. 2. Inconspicuous area of relatively more prominent hypoattenuation along the left anterior centrum semiovale and right posterior centrum semiovale which may reflect chronic microvascular ischemic change however areas of developing lacu hair infarctions not excluded. ORDERING PHYSICIAN: RAMON SIMMONS MD PROCEDURE(s): CXRP - CHEST PORTABLE REASON: weakness ORDER NUMBER(s): [id number], ACCESSION NUMBER(s): [id number] CHEST RADIOGRAPH Indication: weakness Technique: Single frontal view of the chest was obtained Comparison: XY CHEST PORTABLE on DOS: 09/08/25, XY CHEST PORTABLE on DOS: 07/19/25 FINDINGS: Lines and Tubes: None Lungs: No focal consolidation. Pleura: No effusion. No pneumothorax. Cardiomediastinal contours: Appearance of the cardiac silhouette appears to be a difference in film technique with increased lordotic positioning and rotation. Consider repeat chest x-ray if infiltrate is of clinical concern Bones: No acute osseous abnormality. IMPRESSION: 1. Increased lordotic position and patient rotation. SEPSIS Sepsis Screen Date sepsis recognized/suspect: Oct 13, 2025 Time Sepsis recognized/suspect: 1502 Recent Procedure: No On Antibiotic Therapy: No Respiratory Rate >20: No Heart Rate >90: No Temp<36 C (96.8 F) or >38.3 C: No SBP <90 or MAP <65 mmHG: No New Acute Mental Status Change: No Is the patient on CPAP, BIPAP,: No Physician Orders Type And Screen (10/13/25 16:01) Complete Blood Count (10/13/25 16:01) Chest Portable (10/13/25 16:01) Troponin-I Hs (10/13/25 19:01) Manual Differential (10/13/25 16:55) Head Without Contrast (10/13/25 17:50) Insert [place] Catheter QSHIFT (10/13/25 17:50) Vital Signs Date Time Temp Pulse Resp B/P (MAP) Pulse Ox O2 Delivery O2 Flow Rate FiO2 10/13/25 15:30 16 95 Room Air* 0 21 10/13/25 15:30 98.2 61 15 124/52 (76) 100 98.2 10/13/25 14:55 98.0 64 16 130/72 98 98.0 Laboratory Tests Test 10/13/25 16:55 White Blood Count 10.0 10^3/uL (4.4-10.8) Assessment/Plan Assessment/Plan Generalized weakness Symptomatic anemia Thrombocytopenia Myelodysplastic syndrome Acute metabolic encephalopathy Plan 1. Admit to telemetry unit 2. Breathing treatment 3. Pain control management 4. Management of fluids and electrolytes 5. Consultation for hospitalist 6. Diagnostic tests chest x-ray 7. DVT prophylaxis-on SCDs 8. Repeat labs CBC, CMP in a.m. 9. Continue with current medical management 10. Treatment plan discussed with patient and RN. Patient verbalized understanding. Plan discussed with: Patient, Other (RN) Problem List: (1) Generalized weakness (2) Symptomatic anemia (3) Thrombocytopenia (4) Myelodysplastic syndrome (5) Acute metabolic encephalopathy Date of Service: Oct 13, 2025 Billing Provider: JUAN VAZQUEZ DNP Common Visit Codes: [id number] INP/OBS CARE (HIGH) JUAN VAZQUEZ DNP Oct 13, 2025 20:22
[2025-10-13] MEDS ORDERED: HYDROcodone-ACET 5/325MG TAB PO PRN (20:30)
[2025-10-13] MEDS ORDERED: ACETAMINOPHEN 325 MG TAB PO PRN (20:30)
[2025-10-13] MEDS ORDERED: NITROGLYCERIN 0.4 MG SL TAB SL PRN (20:30)
[2025-10-13] MEDS ORDERED: DOCUSATE SOD 100 MG CAP PO PRN (20:30)
[2025-10-13] MEDS ORDERED: ONDANSETRON HCL 4 MG/2 ML VIAL IV PRN (20:30)
[2025-10-13 20:48] LABS: Total Cells Counted 100.0 (100)
[2025-10-13 20:49] LABS: Anisocytosis Slight
[2025-10-13] MEDS: D5W 5% 1,000 ML IV SCH (21:21)
[2025-10-13] MEDS: ZOLPIDEM TARTRATE 5 MG TAB PO SCH (21:43)
[2025-10-13] MEDS: SODIUM CHLOR 0.9% PF (SALINE LOCK) 10ML VIAL/SYR IV SCH (22:00)
[2025-10-13] MEDS: ATORVASTATIN 20 MG TAB PO SCH (23:00)
[2025-10-14 06:19] LABS: Alanine Aminotransferase 10 U/L (7-40); Albumin 3.5 g/dL (3.2-4.8); Anion Gap 11 (5-15); BUN/Creatinine Ratio 24.5 (10.0-20.0); Calcium 9.0 mg/dL (8.7-10.4); Carbon Dioxide 24 mmol/L (20-31); Glucose 86 mg/dL (74-106); Potassium 4.5 mmol/L (3.5-5.1); Sodium 142 mmol/L (136-145); Total Protein 6.6 g/dL (5.7-8.2)
[2025-10-14 06:20] LABS: Bilirubin, Total 0.7 mg/dL (0.2-1.0)
[2025-10-14 06:35] LABS: Alkaline Phosphatase 188 U/L (46-116); Blood Urea Nitrogen 24 mg/dL (9-23); Chloride 107 mmol/L (98-107)
[2025-10-14] MEDS: MEMANTINE HCL 5 MG TAB PO SCH (10:35)
[2025-10-14 11:34] VITALS: PULSE 60; RESP 14; O2SAT 98
[2025-10-14 15:08] LABS: Hemoglobin 7.9 g/dL (13.5-17.5)
[2025-10-14 15:10] LABS: Hematocrit 23.3 % (41.0-53.0); Mean Corpuscular Hemoglobin 27.9 pg (28.0-32.0); Mean Corpuscular Volume 82.4 fL (80.0-100.0)
--- NOTE | 2025-10-14 15:33 | DVHSR ---
APPROVED REPORT EXAM: Two-dimensional and M-mode echocardiogram with Doppler and color Doppler. Blood Pressure: 151/65 mmHg INDICATION Elevated BNP RISK FACTORS Height: 66, Weight: 119 DIMENSIONS LVDd 5.5 (3.8-5.7cm) LA (2D) 4.7 (1.9-4.0cm) Aortic Root 3.1 (2.0-3.7cm) LVDs 3.6 (2.5-4.0cm) LA (MM) (1.9-4.0cm) Aortic Cusp Exc 1.5 (1.5-2.0cm) EF (%) 62.0 (55-70%) Rt. Atrium 4.4 (1.9-4.0cm) Asc. Aorta cm Mitral Valve Mitral Mitral Stenosis E wave 1.08m/s MV Mean GR. mmHg A wave 1.32m/s MV Peak GR. 88mmHg E/A ratio 0.8 2D MVA cm2 DECEL Time 281ms PRESS 1/2 Time 103ms IVRT ms Dop MVA 2.14cm2 Aortic Valve Aortic Valve Aortic Stenosis V1 1.16m/s AO Mean GR. 15mmHg V2 2.73m/s AO Peak GR. 30mmHg AI P 1/2 Time 436.46ms Other Information Technically limited study due to body habitus and patient position. Patient was non compliant during exam. Conclusion Sinus rhythm. Biatrial enlargement with concentric LVH. Moderate aortic sclerosis. Mild mitral annular calcification. EF of 55-60% with normal RV function. Moderate aortic insufficiency. Trace mitral insufficiency. No pericardial effusion masses or vegetations.
--- NOTE | 2025-10-14 16:42 | DVHPN2 ---
Subjective I am assuming the care of the patient from today onwards. Patient is here for generalized weakness altered mental status was sent from [place] because of abnormal lab draw with a hemoglobin of 7.2. Changes from previous H/P or p: No Changes Eyes: No Pain, No Vision change, No Conjunctivae inflammation, No Eyelid inflammation, No Other, No Redness ENT: No Ear pain, No Ear discharge, No Nose pain, No Nose discharge, No Nose congestion, No Mouth pain, No Mouth swelling, No Throat pain, No Throat swelling, No Other Cardiovascular: No Chest Pain, No Palpitations, No Orthopnea, No Paroxysmal Noc. Dyspnea, No Edema, No Lt Headedness, No Other Respiratory: No Cough, No Dry, No Shortness of breath, No SOB with excertion, No Wheezing, No Hemoptysis, No Pleuritic Pain, No Sputum, No Other Gastrointestinal: No Nausea, No Vomiting, No Abdominal Pain, No Diarrhea, No Constipation, No Melena, No Hematochezia, No Other Genitourinary: No Dysuria, No Frequency, No Incontinence, No Hematuria, No Retention, No Other Musculoskeletal: No other, No neck pain, No shoulder pain, No arm pain, No back pain, No hand pain, No leg pain, No foot pain Skin: No Rash, No Lesions, No Jaundice, No Bruising, No Other Objective Vitals Vital Signs Date Time Temp Pulse Resp B/P (MAP) Pulse Ox O2 Delivery O2 Flow Rate FiO2 10/14/25 11:34 60 14 98 Room Air* 0 21 10/14/25 11:34 98.2 151/59 (89) 98.2 Exam HEENT pupils are reactive Neck is supple CV is S1-S2 regular rate and rhythm Diminished breath sounds bases GI positive bowel sound Extremity no edema [employer] patient 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 not follow commands Medications Current Medications Medications Dose Ordered Sig/Barron Route Start Time Stop Time Status Last Admin Dose Admin Memantine 5 mg DAILY PO 10/14/25 10:00 10/14/25 10:35 5 MG Atorvastatin Calcium 20 mg HS PO 10/13/25 22:00 Sodium Chloride 10 ml Q8HR IV 10/13/25 22:00 10/14/25 14:11 10 ML Acetaminophen/ Hydrocodone Bitart 1 tab Q4HP PRN PO 10/13/25 20:30 Ondansetron HCl 4 mg Q4HP PRN IV 10/13/25 20:30 Docusate Sodium 100 mg BIDPRN PRN PO 10/13/25 20:30 Acetaminophen 650 mg Q6HP PRN PO 10/13/25 20:30 Nitroglycerin 0.4 mg Q5MINP PRN SL 10/13/25 20:30 Dextrose 1,000 ml @ 75 mls/hr [id number] IV 10/13/25 20:30 10/14/25 09:58 75 MLS/HR Zolpidem Tartrate 5 mg QSHIFT PO 10/13/25 22:00 10/13/25 21:43 5 MG Laboratory Results Laboratory Tests 10/14/25 05:33 10/14/25 14:33 Chemistry Test 10/13/25 16:55 10/14/25 05:33 Albumin 3.5 g/dL (3.2-4.8) 3.5 g/dL (3.2-4.8) Calcium Level 8.6 mg/dL (8.7-10.4) L 9.0 mg/dL (8.7-10.4) Total Protein 6.1 g/dL (5.7-8.2) 6.6 g/dL (5.7-8.2) Cardiac Markers Test 10/13/25 16:55 B-Type Natriuretic Peptide 217.35 pg/mL (0-100) LFT Test 10/13/25 16:55 10/14/25 05:33 Alanine Aminotransferase (ALT) 13 U/L (7-40) 10 U/L (7-40) Alkaline Phosphatase 191 U/L (46-116) H 188 U/L (46-116) H Aspartate Amino Transferase (AST) 38 U/L (13-40) 32 U/L (13-40) Total Bilirubin 0.5 mg/dL (0.2-1.0) 0.7 mg/dL (0.2-1.0) Urinalysis Test 10/13/25 18:40 Urine Color Light-yellow (Yellow) Urine Clarity Clear (Clear) Urine pH 6.5 (5.0-9.0) Urine Specific [place] 1.015 (1.001-1.035) Urine Protein 1+ (Negative) H Urine Ketones Negative (Negative) Urine Blood Negative /uL (Negative) Urine Nitrite Negative (Negative) Urine Bilirubin Negative (Negative) Urine Urobilinogen Normal mg/dL (Negative) Urine Leukocyte Esterase Negative /uL (Negative) Urine RBC 1 /hpf (0 - 3) Urine Microscopic WBC 1 /HPF (0-3) Urine Squamous Epithelial Cells None seen /hpf (<5) Urine Bacteria None seen /hpf (None Seen) Urine Glucose Normal mg/dL (Normal) Assessment/Plan Assessment/Plan 70-year-old male with a known history of myelodysplastic syndrome, chronic anemia presented with a abnormal lab draw from [place] found to have 1. Acute metabolic encephalopathy 2. Symptomatic anemia 3. Generalized weakness 4. Myelodysplastic syndrome 5. Thrombocytopenia -transfuse 1 unit of packed RBC, PT evaluation and treatment, DVT GI prophylaxis. Plan discussed with: Patient, Other My Orders Orders - IGNACIA DON MD Procedure Category Date Status Time Complete Blood Count LAB 10/14/25 In Process 13:44 Manual Differential LAB 10/14/25 In Process 14:33 Obtain Consent For: ORDERS 10/14/25 Transmitted 15:58 Packedcell-Noactive BBK 10/14/25 Logged Bleeding 15:58 Problem List: (1) MDS (myelodysplastic syndrome) (2) Severe anemia (3) Acute metabolic encephalopathy (4) Generalized weakness Date of Service: Oct 14, 2025 Billing Provider: IGNACIA DON MD Common Visit Codes: [id number] INP/OBS CARE(HIGH) IGNACIA DON MD Oct 14, 2025 16:42
[2025-10-14 17:21] LABS: Nucleated Red Blood Cells % 2.0 %; Total Cells Counted 100.0 (100)
[2025-10-14] MEDS: ZOLPIDEM TARTRATE 5 MG TAB ONE (17:22)
[2025-10-14] MEDS: MEMANTINE HCL 5 MG TAB ONE (17:38)
[2025-10-14 18:50] VITALS: BP 125/78; PULSE 67; RESP 17; TEMP 98.2; O2SAT 95
[2025-10-14 18:51] VITALS: PULSE 72; RESP 18; O2SAT 96
[2025-10-14 20:00] VITALS: PULSE 62; PULSE 63; RESP 17; O2SAT 95
[2025-10-14 21:00] VITALS: BP 121/75; PULSE 63; RESP 17; TEMP 98; O2SAT 95
[2025-10-15] VITALS (11 sets, daily range): BP systolic 131–165; BP diastolic 47–145; PULSE 51–68; RESP 16–95; TEMP 97.5–98.4; O2SAT 94–98
[2025-10-15 08:56] LABS: Hemoglobin 9.4 g/dL (13.5-17.5)
[2025-10-15 08:57] LABS: Hematocrit 27.5 % (41.0-53.0); Mean Corpuscular Hemoglobin 28.4 pg (28.0-32.0); Mean Corpuscular Volume 82.9 fL (80.0-100.0)
[2025-10-15] MEDS: ENOXAPARIN SOD 40 MG/0.4 ML SYRINGE SC SCH (10:00)
[2025-10-15 10:17] LABS: Nucleated Red Blood Cells % 8.0 %; Total Cells Counted 100.0 (100)
[2025-10-15 10:18] LABS: Anisocytosis Slight
--- NOTE | 2025-10-15 16:18 | DVHPN2 ---
Subjective Patient is here for generalized weakness altered mental status was sent from [place] because of abnormal lab draw with a hemoglobin of 7.2. Changes from previous H/P or p: No Changes Eyes: No Pain, No Vision change, No Conjunctivae inflammation, No Eyelid inflammation, No Other, No Redness ENT: No Ear pain, No Ear discharge, No Nose pain, No Nose discharge, No Nose congestion, No Mouth pain, No Mouth swelling, No Throat pain, No Throat swelling, No Other Cardiovascular: No Chest Pain, No Palpitations, No Orthopnea, No Paroxysmal Noc. Dyspnea, No Edema, No Lt Headedness, No Other Respiratory: No Cough, No Dry, No Shortness of breath, No SOB with excertion, No Wheezing, No Hemoptysis, No Pleuritic Pain, No Sputum, No Other Gastrointestinal: No Nausea, No Vomiting, No Abdominal Pain, No Diarrhea, No Constipation, No Melena, No Hematochezia, No Other Genitourinary: No Dysuria, No Frequency, No Incontinence, No Hematuria, No Retention, No Other Musculoskeletal: No other, No neck pain, No shoulder pain, No arm pain, No back pain, No hand pain, No leg pain, No foot pain Skin: No Rash, No Lesions, No Jaundice, No Bruising, No Other Objective Vitals Vital Signs Date Time Temp Pulse Resp B/P (MAP) Pulse Ox O2 Delivery O2 Flow Rate FiO2 10/15/25 12:50 98.1 51 18 158/65 (96) 94 98.1 10/15/25 08:00 Room Air* 0 21 Intake/Output Intake and Output 10/15/25 07:00 Intake Total 2160 ml Output Total 1300 ml Balance 860 ml Intake Oral 260 ml IV Total 1000 ml Blood Product 300 ml Packed Cells 300 ml Other 300 ml Output Urine Total 1300 ml Exam HEENT pupils are reactive Neck is supple CV is S1-S2 regular rate and rhythm Diminished breath sounds bases GI positive bowel sound 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 Medications Current Medications Medications Dose Ordered Sig/Barron Route Start Time Stop Time Status Last Admin Dose Admin Memantine 5 mg DAILY PO 10/14/25 10:00 10/14/25 10:35 5 MG Atorvastatin Calcium 20 mg HS PO 10/13/25 22:00 Sodium Chloride 10 ml Q8HR IV 10/13/25 22:00 10/15/25 15:22 10 ML Acetaminophen/ Hydrocodone Bitart 1 tab Q4HP PRN PO 10/13/25 20:30 Ondansetron HCl 4 mg Q4HP PRN IV 10/13/25 20:30 Docusate Sodium 100 mg BIDPRN PRN PO 10/13/25 20:30 Acetaminophen 650 mg Q6HP PRN PO 10/13/25 20:30 Nitroglycerin 0.4 mg Q5MINP PRN SL 10/13/25 20:30 Dextrose 1,000 ml @ 75 mls/hr [id number] IV 10/13/25 20:30 10/15/25 12:30 75 MLS/HR Zolpidem Tartrate 5 mg QSHIFT PO 10/13/25 22:00 10/13/25 21:43 5 MG Enoxaparin Sodium 40 mg DAILY SC 10/15/25 10:00 Amlodipine Besylate 10 mg DAILY PO 10/16/25 10:00 Laboratory Results Laboratory Tests 10/14/25 05:33 10/15/25 08:41 Urinalysis Test 10/13/25 18:40 Urine Color Light-yellow (Yellow) Urine Clarity Clear (Clear) Urine pH 6.5 (5.0-9.0) Urine Specific [place] 1.015 (1.001-1.035) Urine Protein 1+ (Negative) H Urine Ketones Negative (Negative) Urine Blood Negative /uL (Negative) Urine Nitrite Negative (Negative) Urine Bilirubin Negative (Negative) Urine Urobilinogen Normal mg/dL (Negative) Urine Leukocyte Esterase Negative /uL (Negative) Urine RBC 1 /hpf (0 - 3) Urine Microscopic WBC 1 /HPF (0-3) Urine Squamous Epithelial Cells None seen /hpf (<5) Urine Bacteria None seen /hpf (None Seen) Urine Glucose Normal mg/dL (Normal) Microbiology Microbiology Date/Time Source Procedure Growth Status 10/15/25 02:30 Nose MRSA Screen - Final Methicillin Resistant S.aureus Complete Assessment/Plan Assessment/Plan 70-year-old male with a known history of myelodysplastic syndrome, chronic anemia presented with a abnormal lab draw from [place] found to have 1. Acute metabolic encephalopathy 2. Symptomatic anemia status post 1 unit of packed RBC 3. Generalized weakness 4. Myelodysplastic syndrome Patient is status post 1 unit of packed RBC, physical therapy evaluation and treatment, discharge plan Plan discussed with: Patient My Orders Orders - IGNACIA DON MD Procedure Category Date Status Time Enoxaparin Sodium PHA 10/15/25 In Process (Lovenox) 10:00 Amlodipine Tablet PHA 10/16/25 In Process (Norvasc Tablet) 10:00 Amlodipine Tablet PHA 10/15/25 In Process (Norvasc Tablet) 14:30 Date of Service: Oct 15, 2025 Billing Provider: IGNACIA DON MD Common Visit Codes: [id number] INP/OBS CARE(HIGH) IGNACIA DON MD Oct 15, 2025 16:18
[2025-10-16] VITALS (9 sets, daily range): BP systolic 130–157; BP diastolic 66–85; PULSE 60–72; RESP 16–19; TEMP 97.5–99; O2SAT 95–98
[2025-10-16 13:49] LABS: Hemoglobin 9.3 g/dL (13.5-17.5)
[2025-10-16 13:51] LABS: Hematocrit 26.7 % (41.0-53.0); Mean Corpuscular Hemoglobin 28.2 pg (28.0-32.0); Mean Corpuscular Volume 81.1 fL (80.0-100.0)
--- NOTE | 2025-10-16 13:51 | DVHDS2 ---
Discharge Summary Date of Admission Oct 13, 2025 at 20:16 Date of Discharge: Oct 16, 2025 Labs/Diagnostic Data: Laboratory Results Test 10/16/25 13:32 10/15/25 08:41 10/14/25 05:33 10/13/25 19:41 Differential Total Cells Counted 100.0 (100) Neutrophils % (Manual) 37 (37.0-80.0) Band Neutrophils % (Manual) 5 Lymphocytes % (Manual) 29 (10.0-50.0) Monocytes % (Manual) 21 (0-12) Eosinophils % (Manual) 0 (0-7) Basophils % (Manual) 0 (0.0-2.0) Metamyelocytes % (manual) 0 Myelocytes % (Manual) 5 Promyelocytes % (Manual) 0 Blast Cells % (Manual) 2 Nucleated Red Blood Cells 8.0 % Reactive Lymphocytes 1 Platelet Estimate Decreased Anisocytosis (manual) Slight Schistocytes Few Total Bilirubin 0.7 mg/dL (0.2-1.0) Aspartate Amino Transferase (AST) 32 U/L (13-40) Alanine Aminotransferase (ALT) 10 U/L (7-40) Alkaline Phosphatase 188 U/L (46-116) Total Protein 6.6 g/dL (5.7-8.2) Albumin 3.5 g/dL (3.2-4.8) Troponin I High Sensitivity 6 ng/L (</=54) Test 10/13/25 18:40 10/13/25 16:55 Urine Color Light-yellow (Yellow) Urine Clarity Clear (Clear) Urine pH 6.5 (5.0-9.0) Urine Specific [place] 1.015 (1.001-1.035) Urine Protein 1+ (Negative) Urine Ketones Negative (Negative) Urine Blood Negative /uL (Negative) Urine Nitrite Negative (Negative) Urine Bilirubin Negative (Negative) Urine Urobilinogen Normal mg/dL (Negative) Urine Leukocyte Esterase Negative /uL (Negative) Urine RBC 1 /hpf (0 - 3) Urine Microscopic WBC 1 /HPF (0-3) Urine Squamous Epithelial Cells None seen /hpf (<5) Urine Bacteria None seen /hpf (None Seen) Urine Glucose Normal mg/dL (Normal) B-Type Natriuretic Peptide 217.35 pg/mL (0-100) Brief Hx & Hospital Course: 70-year-old male with a known history of myelodysplastic syndrome, chronic anemia presented with a abnormal lab draw from [facility] found to have acute symptomatic anemia as well as acute metabolic encephalopathy. Patient does have known history of myelodysplastic syndrome. Patient also has thrombocytopenia without any active evidence of bleeding. Patient has received 1 unit of packed RBC currently patient is more awake alert and will be discharged to [facility] facility. Condition at Discharge: Stable Final Diagnosis/Problems List 70-year-old male with a known history of myelodysplastic syndrome, chronic anemia presented with a abnormal lab draw from [facility] found to have 1. Acute metabolic encephalopathy 2. Symptomatic anemia status post 1 unit of packed RBC 3. Generalized weakness 4. Myelodysplastic syndrome Discharge Disposition: [facility] Discharge Will this Physician continue t: No Discharge Instruct/Medications Diet: Cardiac 2g Na,low cholest Activity: No Restrictions, As Tolerated Follow Up/Referral: Follow up with the PCP in 1-2 weeks Medications: Resume home medications. Continued Medications: Amlodipine Besylate (Amlodipine Besylate) 10 Mg Tab 1 TAB PO DAILY Ascorbic Acid (Vitamin C 500 mg) 1 Tab Tab 1 TAB PO BID, TAB Atorvastatin Calcium (Atorvastatin Calcium) 40 Mg Tab 1 TAB PO DAILY Clopidogrel Bisulfate (Clopidogrel) 75 Mg Tab 1 TAB PO DAILY Cranberry Extract (Cranberry) 450 Mg Tab 450 MG PO BID, TAB Folic Acid (Folic Acid) 1 Mg Tab 1 TAB PO DAILY Lactobacillus (Probiotic Acidophilus) 1 Cap Cap 1 CAP PO BID, CAP Memantine Hydrochloride (Memantine HCl) 5 Mg Tab 1 TAB PO BID Potassium Chloride (Potassium Chloride Cr) 10 Meq Tb 20 MEQ PO, TAB Vitamin E (E1000) 1,000 Unit Cap Unknown Dose PO for 30 Days, CAP Zinc Sulfate (Zinc Sulfate) 220 Mg Tab 220 MG PO for 30 Days, TAB Zolpidem Tartrate (Ambien) 10 Mg Tab 10 MG PO HSPRN PRN for FOR INSOMNIA, TAB Scheduled Amlodipine Besylate (Amlodipine Besylate), 1 TAB PO DAILY, (Reported) Ascorbic Acid (Vitamin C 500 mg), 1 TAB PO BID, (Reported) Atorvastatin Calcium (Atorvastatin Calcium), 1 TAB PO DAILY, (Reported) Clopidogrel Bisulfate (Clopidogrel), 1 TAB PO DAILY, (Reported) Cranberry Extract (Cranberry), 450 MG PO BID, (Reported) Folic Acid (Folic Acid), 1 TAB PO DAILY, (Reported) Lactobacillus (Probiotic Acidophilus), 1 CAP PO BID, (Reported) Memantine Hydrochloride (Memantine HCl), 1 TAB PO BID, (Reported) Scheduled PRN Zolpidem Tartrate (Ambien), 10 MG PO HSPRN PRN for FOR INSOMNIA, (Reported) Miscellaneous Medications Potassium Chloride (Potassium Chloride Cr), 20 MEQ PO, (Reported) Vitamin E (E1000), Unknown Dose PO, (Reported) Zinc Sulfate (Zinc Sulfate), 220 MG PO, (Reported) Discharge Statement: "Patient was advised to return to the ER or call 911 if any headaches, dizziness, shortness of breath, chest pain, abdominal pain, bleeding, fevers, or worsening of medical condition. Patient was counseled about treatment plan, medications, possible side effects, patientverbalized understanding. All questions were answered to the best of my ability. This discharge took greater then 30 minutes in planning, reviewing documentation, counseling the patient, and discussing with other team members." ASSESSMENT ASSESSMENT Assessment 70-year-old male with a known history of myelodysplastic syndrome, chronic anemia presented with a abnormal lab draw from [facility] found to have 1. Acute metabolic encephalopathy 2. Symptomatic anemia status post 1 unit of packed RBC 3. Generalized weakness 4. Myelodysplastic syndrome Date of Service: Oct 16, 2025 Billing Provider: IGNACIA DON MD Common Visit Codes: [id number] DISCH DAY >30min IGNACIA DON MD Oct 16, 2025 13:51
[2025-10-16 14:02] LABS: Anion Gap 9 (5-15); Carbon Dioxide 26 mmol/L (20-31); Potassium 4.1 mmol/L (3.5-5.1); Sodium 143 mmol/L (136-145)
[2025-10-16 14:08] LABS: BUN/Creatinine Ratio 28.0 (10.0-20.0); Blood Urea Nitrogen 23 mg/dL (9-23); Glucose 101 mg/dL (74-106)
[2025-10-16 14:09] LABS: Calcium 8.4 mg/dL (8.7-10.4); Chloride 108 mmol/L (98-107)
[2025-10-16 14:55] LABS: Anisocytosis Slight; Nucleated Red Blood Cells % 2.0 %; Total Cells Counted 100.0 (100)
[2025-10-16 14:56] LABS: Ovalocytes FEW
[2025-10-16] MEDS: MUPIROCIN 2% OINT 15gm or 22gm FOR MRSA NARES EACHNOSTRI SCH (21:29)
== END 2025-10-16 23:04 | DRG 811 ==
LOC: ER 14:46 → EDBD 14:46 → OVERFLOW 20:16 → TELE-EAST 10-14 18:40
PROVIDERS: ADMIT Internal Medicine; ATTEND Internal Medicine
PROC: 30233N1 Transfusion of Nonautologous Red Blood Cells into Peripheral Vein, Percutaneous Approach (ICD-10-PCS; principal; 2025-10-15)
DX: D46.9 Myelodysplastic syndrome, unspecified (principal); G93.41 Metabolic encephalopathy; D69.6 Thrombocytopenia, unspecified; J44.9 Chronic obstructive pulmonary disease, unspecified; F03.90 Unspecified dementia, unspecified severity, without behavioral disturbance, psychotic disturbance, mood disturbance, and anxiety; I10 Essential (primary) hypertension; I25.10 Atherosclerotic heart disease of native coronary artery without angina pectoris; Z88.5 Allergy status to narcotic agent; I25.2 Old myocardial infarction
CPT/HCPCS: 36415; 70450; 71045; 80048; 80053; 81001; 83880; 84484; 85007; 85027; 86850; 86900; 86901; 86920; 87081; 93306; 96365; 99291; G0378

== ENCOUNTER 2025-10-24 00:17 | Inpatient (IN) | payer MEDICARE, MEDICAID ==
[2025-10-24] VITALS (12 sets, daily range): BP systolic 130–162; BP diastolic 51–90; PULSE 62–98; RESP 10–24; TEMP 97.4–98.7; O2SAT 95–99
[~2025-10-24] VITALS: Ht 162.6 cm; Wt 115.0 kg
--- NOTE | 2025-10-24 00:54 | ED.PDOC ---
History of Present Illness HPI Comments Patient is a 70-year-old male with past medical history of dementia, cerebral leukomalacia, myelodysplastic syndrome, moderate protein calorie malnutrition, chronic anemia, COPD, hypertension, dyslipidemia, abdominal aortic aneurysm unruptured, TIA, BIBA from [facility] due to running high f isaac. According to the EMS, patient was noted to have a fever of as high as 104 which started approximately 2-3 hours ago, upon rechecking by the EMS it was noted to be 99 F. per EMS, at the facility patient was also noted to have abnormal labs hemoglobin of 7.3 and a platelet count in the 60s, patient was recently discharged from the [facility] on 10/16/2025 whereby he also received blood transfusion. Patient frequently requires blood transfusions owing to his myelodysplastic syndrome. At baseline patient is A&O times 0, nonverbal. 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 Allergies: Coded Allergies: Morphine (Verified Allergy, Unknown, 06/22/25) Home Meds Reported Medications Lactobacillus (Probiotic Acidophilus) 1 Cap Cap, 1 CAP PO BID, CAP 08/17/25 Cranberry Extract (Cranberry) 450 Mg Tab, 450 MG PO BID, TAB 08/17/25 Vitamin E (E1000) 1,000 Unit Cap, PO for 30 Days, CAP 08/17/25 Zinc Sulfate (Zinc Sulfate) 220 Mg Tab, 220 MG PO for 30 Days, TAB 08/17/25 Ascorbic Acid (Vitamin C 500 mg) 1 Tab Tab, 1 TAB PO BID, TAB 08/17/25 Zolpidem Tartrate (Ambien) 10 Mg Tab, 10 MG PO HSPRN PRN for FOR INSOMNIA, TAB 08/17/25 Potassium Chloride (POTASSIUM CHLORIDE CR) 10 Meq Tb, 20 MEQ PO, TAB 06/23/25 Amlodipine Besylate (Amlodipine Besylate) 10 Mg Tab, 1 TAB PO DAILY 06/23/25 Clopidogrel Bisulfate (CLOPIDOGREL) 75 Mg Tab, 1 TAB PO DAILY 06/23/25 Folic Acid (Folic Acid) 1 Mg Tab, 1 TAB PO DAILY 06/23/25 Memantine Hydrochloride (Memantine HCl) 5 Mg Tab, 1 TAB PO BID 06/23/25 Atorvastatin Calcium (ATORVASTATIN CALCIUM) 40 Mg Tab, 1 TAB PO DAILY 06/23/25 Information Source: Transfer Record, Emergency Med Personnel, [facility] Medical Record, Past Medical Record Mode of Arrival: EMS Severity: Moderate Timing: Hours Duration: Intermittent Prehospital treatment: None Past Medical History PAST MEDICAL HISTORY: Anemia, CAD, Cancer, COPD, Dementia, High Lipids, HTN, TN, UTI'S Past Medical History (Contd): dementia, cerebral leukomalacia, myelodysplastic syndrome, moderate protein calorie malnutrition, chronic anemia, COPD, hypertension, dyslipidemia, abdominal aortic aneurysm unruptured, TIA Surgical History: Unknown, Denies all surgeries Surgical History (Cont'd) None per previous record Family History Family History: Reviewed,noncontributory to illness Social History Smoker: Non-Smoker Alcohol: Denies ETOH Use Drugs: Denies Drug Use Lives In: [facility]dc Unable to Obtain due to: Altered Mental Status, Dementia Physical Exam General Appearance: Cachectic, No Apparent Distress HEENT: Normal ENT Inspection, PERRL/EOMI Neck: Non-Tender, Normal, Normal Inspection Respiratory: Chest Non-Tender, Lungs Clear, No Accessory Muscle Use, No Respiratory Distress Cardiovascular: No Edema, No Murmur, Regular Rate/Rhythm Breast Exam: Deferred Gastrointestinal: Non Tender, Normal Bowel Sounds, Soft Genitalia: Deferred Pelvic: Deferred Rectal: Rectal Exam not done Extremities: No calf tenderness, Non-tender, No pedal edema Neurologic: Other (AO times 0, somewhat follows commands. Nonverbal.) Cerebellar Function: Unable to Test Reflexes: NOT DONE Skin: Bruises, Dry Peripheral Pulses: 2+ dorsalis pedis (R), 2+ dorsalis pedis (L) Lymphatic: NOT DONE Was a procedure done? Was a procedure done?: No Differential Dx Considerations may include: Acute on chronic anemia Acute febrile hemolytic transfusion reaction Sepsis Myelodysplastic syndrome X-Ray, Labs, Meds, VS Vital Signs Date Time Temp Pulse Resp B/P (MAP) Pulse Ox O2 Delivery O2 Flow Rate FiO2 10/24/25 00:25 99.0 92 16 158/82 96 99.0 Lab Test 10/24/25 01:38 Range/Units White Blood Count 9.1 4.4-10.8 10^3/uL Red Blood Count 2.41 L 4.5-5.90 10^6/uL Hemoglobin 6.6 *L 13.5-17.5 g/dL Hematocrit 19.9 L 41.0-53.0 % Mean Corpuscular Volume 82.7 80.0-100.0 fL Mean Corpuscular Hemoglobin 27.5 L 28.0-32.0 pg Mean Corpuscular Hemoglobin Concent 33.3 32.0-36.0 g/dL Red Cell Distribution Width 18.8 H 11.8-14.3 % Platelet Count 79 L 140-450 10^3/uL Mean Platelet Volume 8.0 6.9-10.8 fL Neutrophils (%) (Auto) 37.0-80.0 % Lymphocytes (%) (Auto) 10.0-50.0 % Monocytes (%) (Auto) 0.0-12.0 % Basophils (%) (Auto) 0.0-2.0 % Neutrophils # (Auto) 1.6-8.6 10 ^3/uL Lymphocytes # (Auto) 0.4-5.4 10 ^3/uL Monocytes # (Auto) 0-1.3 10 ^3/uL Differential Total Cells Counted Pending Neutrophils % (Manual) Pending Band Neutrophils % (Manual) Pending Lymphocytes % (Manual) Pending Monocytes % (Manual) Pending Eosinophils % (Manual) Pending Basophils % (Manual) Pending Metamyelocytes % (manual) Pending Myelocytes % (Manual) Pending Promyelocytes % (Manual) Pending Blast Cells % (Manual) Pending Reactive Lymphocytes Pending Platelet Estimate Pending Sodium Level 152 H 136-145 mmol/L Potassium Level 4.3 3.5-5.1 mmol/L Chloride Level 118 H 98-107 mmol/L Carbon Dioxide Level 21 20-31 mmol/L Anion Gap 13 5-15 Blood Urea Nitrogen 57 H 9-23 mg/dL Creatinine 1.67 H 0.700-1.30 mg/dL Glomerular Filtration Rate Calc 43 >90 mL/min BUN/Creatinine Ratio 34.1 H 10.0-20.0 Serum Glucose 137 H 74-106 mg/dL Lactic Acid Level 1.3 0.4-2.0 mmol/L Calcium Level 8.4 L 8.7-10.4 mg/dL Total Bilirubin 0.6 0.2-1.0 mg/dL Aspartate Amino Transferase (AST) 28 13-40 U/L Alanine Aminotransferase (ALT) < 9 7-40 U/L Alkaline Phosphatase 161 H 46-116 U/L Total Protein 5.8 5.7-8.2 g/dL Albumin 3.1 L 3.2-4.8 g/dL Time of 1ST Reevaluation: 01:33 Reevaluation 1ST: Unchanged Time of 2ND Reevaluation: 02:22 Reevaluation 2ND: Unchanged Patient Education/Counseling: Other (Patient altered) Family Education/Counseling: Diagnosis, Treatment, Prognosis, Need For Follow Up SEPSIS Sepsis Screen Date sepsis recognized/suspect: Oct 24, 2025 Time Sepsis recognized/suspect: 0028 Recent Procedure: No On Antibiotic Therapy: No Respiratory Rate >20: No Heart Rate >90: No Temp<36 C (96.8 F) or >38.3 C: No SBP <90 or MAP <65 mmHG: No New Acute Mental Status Change: No Is the patient on CPAP, BIPAP,: No Physician Orders Complete Blood Count (10/24/25 00:46) Urinalysis (10/24/25 00:46) Chest Portable (10/24/25 00:46) Blood Culture (10/24/25 00:46) Type And Screen (10/24/25 00:47) Straight Cath Patient (10/24/25 01:47) Manual Differential (10/24/25 01:38) Packedcell-Noactive Bleeding (10/24/25 02:21) D5w 5% (Dextrose 5%) (10/24/25 02:45) Vital Signs Date Time Temp Pulse Resp B/P (MAP) Pulse Ox O2 Delivery O2 Flow Rate FiO2 10/24/25 00:25 99.0 92 16 158/82 96 99.0 Laboratory Tests Test 10/24/25 01:38 Lactic Acid Level 1.3 mmol/L (0.4-2.0) White Blood Count 9.1 10^3/uL (4.4-10.8) Departure 1 Departure Time of Disposition: 02:40 Impression: Primary Impression: Symptomatic anemia Additional Impressions: Myelodysplastic syndrome Myelofibrosis YOLANDA (acute kidney injury) Disposition: 09 ADMITTED INPATIENT Condition: Guarded Critical Care Note Critical Care Time?: No Stability Stability form required: PAULETTE Millan RESIDENT Oct 24, 2025 00:54
[2025-10-24 02:16] LABS: Hematocrit 19.9 % (41.0-53.0); Mean Corpuscular Hemoglobin 27.5 pg (28.0-32.0); Mean Corpuscular Volume 82.7 fL (80.0-100.0)
[2025-10-24 02:19] LABS: Hemoglobin 6.6 g/dL (13.5-17.5)
[2025-10-24 02:32] LABS: Anion Gap 13 (5-15); BUN/Creatinine Ratio 34.1 (10.0-20.0); Carbon Dioxide 21 mmol/L (20-31); Potassium 4.3 mmol/L (3.5-5.1); Total Protein 5.8 g/dL (5.7-8.2)
[2025-10-24 02:33] LABS: Bilirubin, Total 0.6 mg/dL (0.2-1.0)
[2025-10-24 02:36] LABS: Alanine Aminotransferase < 9 U/L (7-40); Albumin 3.1 g/dL (3.2-4.8); Alkaline Phosphatase 161 U/L (46-116); Blood Urea Nitrogen 57 mg/dL (9-23); Calcium 8.4 mg/dL (8.7-10.4); Chloride 118 mmol/L (98-107); Glucose 137 mg/dL (74-106); Sodium 152 mmol/L (136-145)
[2025-10-24] MEDS: ACETAMINOPHEN 325 MG TAB PO ONE (03:21)
[2025-10-24 03:43] LABS: Urine Protein, UAD 2+ (Negative); Urine WBC Clumps PRESENT /hpf (None Seen)
[2025-10-24 04:13] LABS: Total Cells Counted 100.0 (100)
[2025-10-24] MEDS ORDERED: ONDANSETRON HCL 4 MG/2 ML VIAL IV PRN (04:30)
[2025-10-24] MEDS ORDERED: ACETAMINOPHEN 325 MG TAB PO PRN (04:30)
--- NOTE | 2025-10-24 04:36 | DVHHP2 ---
History of Present Illness Reason for Visit: Generalized weakness History of Present Illness 70-year-old male presents for evaluation of generalized weakness. Patient is a resident at [facility]. Patient was noted to be progressively weaker with a fever. Patient was recently discharged after being admitted for low hemoglobin levels. 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 Patient is bed ridden. Past Medical History Anemia, cancer, CAD, dementia, COPD, dyslipidemia, hypertension, mi, UTI, myelodysplastic syndrome, cerebral leukomalacia Past Surgical History None Family History Noncontributory Smoke: No ALCOHOL: none Drugs: None Lives: with Family Review of Systems Review of Systems Review of systems can not be completed due to the patient's dementia. Allergies: Coded Allergies: Morphine (Verified Allergy, Unknown, 06/22/25) Exam Vital Signs Vital Signs Date Time Temp Pulse Resp B/P (MAP) Pulse Ox O2 Delivery O2 Flow Rate FiO2 10/24/25 04:15 97.9 62 15 130/52 97.9 10/24/25 02:40 99 10/24/25 02:40 Room Air* 0 21 Exam Gen: 70-year-old male in mild distress Skin: Warm, dry, normal color and texture, no rash. HEENT: Normocephalic atraumatic, mucous membranes moist and pink. Neck: Cervical and supraclavicular nodes normal without enlargement, trachea is midline, thyroid gland is normal without masses. Pulmonary: Clear to auscultation and percussion bilaterally. Cardiac: Regular rate and rhythm. No murmur Abdomen: Soft, nontender, nondistended, bowel sounds present all 4 quadrants, no guarding, no rigidity, no organomegaly. Extremities: No cyanosis, clubbing, no edema Neuro: Nonverbal Labs/Xrays Labs Test 10/24/25 03:27 10/24/25 01:38 Range/Units Urine Color Light-orange Yellow Urine Clarity Turbid H Clear Urine pH 5.5 5.0-9.0 Urine Specific [place] 1.018 1.001-1.035 Urine Protein 2+ H Negative Urine Ketones Negative Negative Urine Blood 2+ H Negative /uL Urine Nitrite Negative Negative Urine Bilirubin Negative Negative Urine Urobilinogen Normal Negative mg/dL Urine Leukocyte Esterase 3+ Negative /uL Urine RBC 16 0 - 3 /hpf Urine WBC Clumps Present None Seen /hpf Urine Microscopic WBC 355 H 0-3 /HPF Urine Squamous Epithelial Cells Few <5 /hpf Urine Bacteria Many H None Seen /hpf Urine Hyaline Casts Few 0 - 2 /lpf Urine Mucus Few None Seen Urine Glucose Normal Normal mg/dL White Blood Count 9.1 4.4-10.8 10^3/uL Red Blood Count 2.41 L 4.5-5.90 10^6/uL Hemoglobin 6.6 *L 13.5-17.5 g/dL Hematocrit 19.9 L 41.0-53.0 % Mean Corpuscular Volume 82.7 80.0-100.0 fL Mean Corpuscular Hemoglobin 27.5 L 28.0-32.0 pg Mean Corpuscular Hemoglobin Concent 33.3 32.0-36.0 g/dL Red Cell Distribution Width 18.8 H 11.8-14.3 % Platelet Count 79 L 140-450 10^3/uL Mean Platelet Volume 8.0 6.9-10.8 fL Neutrophils (%) (Auto) 37.0-80.0 % Lymphocytes (%) (Auto) 10.0-50.0 % Monocytes (%) (Auto) 0.0-12.0 % Basophils (%) (Auto) 0.0-2.0 % Neutrophils # (Auto) 1.6-8.6 10 ^3/uL Lymphocytes # (Auto) 0.4-5.4 10 ^3/uL Monocytes # (Auto) 0-1.3 10 ^3/uL Differential Total Cells Counted 100.0 100 Neutrophils % (Manual) 70 37.0-80.0 Band Neutrophils % (Manual) 4 Lymphocytes % (Manual) 13 10.0-50.0 Monocytes % (Manual) 11 0-12 Eosinophils % (Manual) 0 0-7 Basophils % (Manual) 0 0.0-2.0 Metamyelocytes % (manual) 1 Myelocytes % (Manual) 1 Promyelocytes % (Manual) 0 Blast Cells % (Manual) 0 Reactive Lymphocytes 0 Platelet Estimate Decreased Anisocytosis (manual) Sodium Level 152 H 136-145 mmol/L Potassium Level 4.3 3.5-5.1 mmol/L Chloride Level 118 H 98-107 mmol/L Carbon Dioxide Level 21 20-31 mmol/L Anion Gap 13 5-15 Blood Urea Nitrogen 57 H 9-23 mg/dL Creatinine 1.67 H 0.700-1.30 mg/dL Glomerular Filtration Rate Calc 43 >90 mL/min BUN/Creatinine Ratio 34.1 H 10.0-20.0 Serum Glucose 137 H 74-106 mg/dL Lactic Acid Level 1.3 0.4-2.0 mmol/L Calcium Level 8.4 L 8.7-10.4 mg/dL Total Bilirubin 0.6 0.2-1.0 mg/dL Aspartate Amino Transferase (AST) 28 13-40 U/L Alanine Aminotransferase (ALT) < 9 7-40 U/L Alkaline Phosphatase 161 H 46-116 U/L Total Protein 5.8 5.7-8.2 g/dL Albumin 3.1 L 3.2-4.8 g/dL SEPSIS Sepsis Screen Date sepsis recognized/suspect: Oct 24, 2025 Time Sepsis recognized/suspect: 239 Recent Procedure: No On Antibiotic Therapy: No Respiratory Rate >20: No Heart Rate >90: No Temp<36 C (96.8 F) or >38.3 C: No SBP <90 or MAP <65 mmHG: No New Acute Mental Status Change: Yes Is the patient on CPAP, BIPAP,: No Physician Orders Chest Portable (10/24/25 00:46) Blood Culture (10/24/25 00:46) Type And Screen (10/24/25 00:47) D5w 5% (Dextrose 5%) (10/24/25 02:45) Park Catheters (10/24/25 ) Admit (10/24/25 04:08) Packedcells -Active Bleeding (10/24/25 04:18) Vital Signs Date Time Temp Pulse Resp B/P (MAP) Pulse Ox O2 Delivery O2 Flow Rate FiO2 10/24/25 04:15 97.9 62 15 130/52 97.9 10/24/25 04:00 97.5 66 18 133/60 97.5 10/24/25 02:40 98.6 69 19 128/52 (77) 99 98.6 10/24/25 02:40 99 Room Air* 0 21 10/24/25 00:25 99.0 92 16 158/82 96 99.0 Laboratory Tests Test 10/24/25 01:38 Lactic Acid Level 1.3 mmol/L (0.4-2.0) White Blood Count 9.1 10^3/uL (4.4-10.8) Assessment/Plan Assessment/Plan Assessment Symptomatic anemia Myelodysplastic syndrome Metabolic encephalopathy UTI Hypernatremia Plan Admit the patient to [facility] to the hospitalist Transfuse 2 units of packed red cells Rocephin Maintenance IV fluids Continue treatment per orders. Plan discussed with: Other My Orders Orders - LOLLY RUIZ Procedure Category Date Status Time Admit ADMIT 10/24/25 Transmitted 04:08 Packedcells -Active BBK 10/24/25 Logged Bleeding 04:18 Date of Service: Oct 24, 2025 Billing Provider: LOLLY RUIZ Common Visit Codes: [id number] INP/OBS CARE (HIGH) LOLLY RUIZ Oct 24, 2025 04:36
--- NOTE | 2025-10-24 05:19 | DVH ---
CHEST RADIOGRAPH Indication: fever, cough, copd Technique: Single frontal view of the chest was obtained COMPARISON: XY CHEST PORTABLE on DOS: 10/13/25, XY CHEST PORTABLE on DOS: 09/08/25, XY CHEST PORTABLE on DOS: 07/19/25 FINDINGS: Lines and Tubes: None Lungs: Stable appearing diffuse Increased prominence of the pulmonary vasculature and interstitium. Pleura: No effusion. No pneumothorax. Cardiomediastinal contours: Cardiomegaly. Bones: Unremarkable IMPRESSION: 1. Stable appearing diffuse increased prominence of the pulmonary vasculature and interstitium. 2. Cardiomegaly.
[2025-10-24] MEDS: D5W/SOD CHLO 0.9% 1,000 ML IV ONE (09:49)
[2025-10-24] MEDS: D5W 5% 1,000 ML IV ONE (10:15)
[2025-10-24] MEDS: MEMANTINE HCL 5 MG TAB PO SCH (11:43)
[2025-10-24] MEDS: CLOPIDOGREL BISULFATE 75 MG TAB PO SCH (15:50)
[2025-10-24 19:16] LABS: Hematocrit 30.3 % (41.0-53.0); Hemoglobin 10.3 g/dL (13.5-17.5)
[2025-10-24] MEDS: ATORVASTATIN 20 MG TAB PO SCH (23:30)
[2025-10-25] VITALS (9 sets, daily range): BP systolic 122–168; BP diastolic 63–80; PULSE 75–107; RESP 16–20; TEMP 97.7–98.6; O2SAT 95–98
[2025-10-25 06:12] LABS: Anion Gap 17 (5-15); Potassium 3.7 mmol/L (3.5-5.1)
[2025-10-25 06:13] LABS: Hematocrit 29.3 % (41.0-53.0); Hemoglobin 9.9 g/dL (13.5-17.5); Mean Corpuscular Hemoglobin 27.6 pg (28.0-32.0); Mean Corpuscular Volume 81.6 fL (80.0-100.0)
[2025-10-25 06:14] LABS: Calcium 9.1 mg/dL (8.7-10.4); Carbon Dioxide 18 mmol/L (20-31); Chloride 120 mmol/L (98-107); Sodium 155 mmol/L (136-145)
[2025-10-25 06:19] LABS: BUN/Creatinine Ratio 29.0 (10.0-20.0)
[2025-10-25 06:33] LABS: Blood Urea Nitrogen 47 mg/dL (9-23); Glucose 128 mg/dL (74-106)
[2025-10-25 07:13] LABS: Total Cells Counted 100.0 (100)
--- NOTE | 2025-10-25 15:22 | DVHPN2 ---
Subjective seen in bed and oriented x 1 baseline with dementia Reviewed: H&P Changes from previous H/P or p: No Changes Objective Vitals Vital Signs Date Time Temp Pulse Resp B/P (MAP) Pulse Ox O2 Delivery O2 Flow Rate FiO2 10/25/25 13:00 97.8 78 17 137/80 (99) 98 97.8 10/25/25 00:39 Room Air* 0 21 Intake/Output Intake and Output 10/25/25 07:00 Intake Total 900 ml Output Total 1750 ml Balance -850 ml Intake Oral 0 ml Tube Feeding 0 ml Blood Product 900 ml Other 0 ml Output Urine Total 1750 ml Stool Total 0 ml Urine/Stool Mix 0 ml Gastric Drainage Total 0 ml Emesis 0 ml Chest Tube Drainage Total 0 ml Drainage Total 0 ml Other 0 ml General Appearance: Alert Cardiovascular: Regular rate, Normal S1, Normal S2 Abdomen: Normal bowel sounds Medications Current Medications Medications Dose Ordered Sig/Barron Route Start Time Stop Time Status Last Admin Dose Admin Amlodipine Besylate 10 mg DAILY PO 10/24/25 10:00 10/25/25 09:34 10 MG Atorvastatin Calcium 40 mg HS PO 10/24/25 22:00 10/24/25 23:30 40 MG Clopidogrel Bisulfate 75 mg DAILY PO 10/24/25 10:00 10/25/25 09:35 75 MG Memantine 5 mg Q12HR PO 10/24/25 10:00 10/25/25 09:34 5 MG Ceftriaxone Sodium 50 ml @ 100 mls/hr DAILY@09 IV 10/24/25 09:00 10/25/25 09:35 100 MLS/HR Ondansetron HCl 4 mg Q4HP PRN IV 10/24/25 04:30 Acetaminophen 650 mg Q6HP PRN PO 10/24/25 04:30 Laboratory Results Laboratory Tests 10/25/25 05:07 Chemistry Test 10/25/25 05:07 Calcium Level 9.1 mg/dL (8.7-10.4) Urinalysis Test 10/24/25 03:27 Urine Color Light-orange (Yellow) Urine Clarity Turbid (Clear) H Urine pH 5.5 (5.0-9.0) Urine Specific [place] 1.018 (1.001-1.035) Urine Protein 2+ (Negative) H Urine Ketones Negative (Negative) Urine Blood 2+ /uL (Negative) H Urine Nitrite Negative (Negative) Urine Bilirubin Negative (Negative) Urine Urobilinogen Normal mg/dL (Negative) Urine Leukocyte Esterase 3+ /uL (Negative) Urine RBC 16 /hpf (0 - 3) Urine WBC Clumps Present /hpf (None Seen) Urine Microscopic WBC 355 /HPF (0-3) H Urine Squamous Epithelial Cells Few /hpf (<5) Urine Bacteria Many /hpf (None Seen) H Urine Hyaline Casts Few /lpf (0 - 2) Urine Mucus Few (None Seen) Urine Glucose Normal mg/dL (Normal) Microbiology Microbiology Date/Time Source Procedure Growth Status 10/25/25 01:28 Nose MRSA Screen - Final Complete 10/24/25 01:38 Blood Blood Culture - Preliminary NO GROWTH AFTER 24 HOURS OF INCUBATION. Resulted Assessment/Plan Assessment/Plan Symptomatic anemia Myelodysplastic syndrome Metabolic encephalopathy UTI Hypernatremia Monitor BMP HB stable now Continue IV abx Plan discussed with: Patient Date of Service: Oct 25, 2025 Billing Provider: PIPO LOPEZ MD Common Visit Codes: [id number] INP/OBS CARE(HIGH) PIPO LOPEZ MD Oct 25, 2025 15:22
[2025-10-25] MEDS: D5W 5% 1,000 ML IV SCH (17:51)
[2025-10-26] VITALS (7 sets, daily range): BP systolic 117–155; BP diastolic 61–76; PULSE 67–94; RESP 16–21; TEMP 97.6–99.1; O2SAT 94–97
[2025-10-26 06:41] LABS: Anion Gap 15 (5-15)
[2025-10-26 06:42] LABS: Calcium 8.1 mg/dL (8.7-10.4); Carbon Dioxide 19 mmol/L (20-31); Chloride 121 mmol/L (98-107); Potassium 3.4 mmol/L (3.5-5.1); Sodium 155 mmol/L (136-145)
[2025-10-26 06:46] LABS: BUN/Creatinine Ratio 32.2 (10.0-20.0)
[2025-10-26 06:47] LABS: Blood Urea Nitrogen 47 mg/dL (9-23); Glucose 120 mg/dL (74-106)
--- NOTE | 2025-10-26 11:32 | DVHPN2 ---
Subjective seen in bed and oriented x 1 baseline with dementia Reviewed: H&P Changes from previous H/P or p: No Changes Objective Vitals Vital Signs Date Time Temp Pulse Resp B/P (MAP) Pulse Ox O2 Delivery O2 Flow Rate FiO2 10/26/25 09:30 140/69 10/26/25 08:36 97.6 67 16 95 97.6 10/25/25 20:00 Room Air* 0 21 Intake/Output Intake and Output 10/26/25 07:00 Intake Total 450 ml Output Total 1400 ml Balance -950 ml Intake Oral 450 ml Output Urine Total 1400 ml General Appearance: Alert Cardiovascular: Regular rate, Normal S1, Normal S2 Abdomen: Normal bowel sounds Medications Current Medications Medications Dose Ordered Sig/Barron Route Start Time Stop Time Status Last Admin Dose Admin Amlodipine Besylate 10 mg DAILY PO 10/24/25 10:00 10/26/25 09:30 10 MG Atorvastatin Calcium 40 mg HS PO 10/24/25 22:00 10/25/25 21:36 40 MG Clopidogrel Bisulfate 75 mg DAILY PO 10/24/25 10:00 10/26/25 09:30 75 MG Memantine 5 mg Q12HR PO 10/24/25 10:00 10/26/25 09:30 5 MG Ceftriaxone Sodium 50 ml @ 100 mls/hr DAILY@09 IV 10/24/25 09:00 10/26/25 09:30 100 MLS/HR Ondansetron HCl 4 mg Q4HP PRN IV 10/24/25 04:30 Acetaminophen 650 mg Q6HP PRN PO 10/24/25 04:30 Dextrose 1,000 ml @ 100 mls/hr Q10H IV 10/25/25 15:30 10/26/25 01:30 100 MLS/HR Laboratory Results Laboratory Tests 10/25/25 05:07 10/26/25 05:42 Chemistry Test 10/26/25 05:42 Calcium Level 8.1 mg/dL (8.7-10.4) L Urinalysis Test 10/24/25 03:27 Urine Color Light-orange (Yellow) Urine Clarity Turbid (Clear) H Urine pH 5.5 (5.0-9.0) Urine Specific [place] 1.018 (1.001-1.035) Urine Protein 2+ (Negative) H Urine Ketones Negative (Negative) Urine Blood 2+ /uL (Negative) H Urine Nitrite Negative (Negative) Urine Bilirubin Negative (Negative) Urine Urobilinogen Normal mg/dL (Negative) Urine Leukocyte Esterase 3+ /uL (Negative) Urine RBC 16 /hpf (0 - 3) Urine WBC Clumps Present /hpf (None Seen) Urine Microscopic WBC 355 /HPF (0-3) H Urine Squamous Epithelial Cells Few /hpf (<5) Urine Bacteria Many /hpf (None Seen) H Urine Hyaline Casts Few /lpf (0 - 2) Urine Mucus Few (None Seen) Urine Glucose Normal mg/dL (Normal) Microbiology Microbiology Date/Time Source Procedure Growth Status 10/25/25 01:28 Nose MRSA Screen - Final Complete 10/24/25 01:38 Blood Blood Culture - Preliminary NO GROWTH AFTER 48 HOURS OF INCUBATION. Resulted Assessment/Plan Assessment/Plan Symptomatic anemia Myelodysplastic syndrome Metabolic encephalopathy UTI Hypernatremia Monitor BMP HB stable now Continue IV abx Plan to DC tomorrow back to SNF Plan discussed with: Patient My Orders Orders - PIPO LOPEZ MD Procedure Category Date Status Time D5w 5% (Dextrose 5%) PHA 10/25/25 In Process 15:30 Basic Metabolic Panel LAB 10/27/25 Verified 05:00 Basic Metabolic Panel LAB 10/28/25 Verified 05:00 Basic Metabolic Panel LAB 10/29/25 Verified 05:00 Basic Metabolic Panel LAB 10/30/25 Verified 05:00 Basic Metabolic Panel LAB 10/31/25 Verified 05:00 Basic Metabolic Panel LAB 11/01/25 Verified 05:00 Date of Service: Oct 26, 2025 Billing Provider: PIPO LOPEZ MD Common Visit Codes: [id number] INP/OBS CARE(HIGH) PIPO LOPEZ MD Oct 26, 2025 11:32
[2025-10-26] MEDS: FREE WATER GT SCH (18:00)
--- NOTE | 2025-10-26 18:09 | DVH ---
CLINICAL HISTORY: stroke TECHNIQUE: Helical scanning was performed of the head from the skull base to the vertex. Multiplanar reconstructions were performed. This exam was performed according to our departmental dose optimization program. Up-to-date CT equipment and radiation dose reduction techniques are utilized as appropriate. WID: COMPARISON: CT HEAD WITHOUT CONTRAST on DOS: 10/13/25 FINDINGS: There is no acute intracranial hemorrhage, CT evidence of acute ischemic changes, mass effect, midline shift, or extra-axial fluid collection. Severe generalized parenchymal volume loss with prominence of the sulci and ventricles. Bulky calcification within the middle cerebral arteries bilaterally. There is moderate-severe patchy subcortical and periventricular white hypoattenuation, non-specific. The imaged intraorbital structures are unremarkable The imaged paranasal sinuses are clear. The mastoid air cells are clear. The calvarium is intact. IMPRESSION: NO ACUTE INTRACRANIAL FINDINGS Severe generalized parenchymal volume loss Moderate-severe chronic ischemic white matter change Atherosclerotic calcifications within the middle cerebral artery branches bilaterally, unchanged when compared to prior
[2025-10-27 01:00] VITALS: BP 145/65; PULSE 70; RESP 18; TEMP 97.8; O2SAT 95
[2025-10-27 05:00] VITALS: BP 130/67; PULSE 71; RESP 18; TEMP 97.6; O2SAT 94
[2025-10-27 06:44] LABS: Anion Gap 13 (5-15)
[2025-10-27 06:50] LABS: BUN/Creatinine Ratio 27.7 (10.0-20.0)
[2025-10-27 06:56] LABS: Blood Urea Nitrogen 39 mg/dL (9-23); Calcium 8.5 mg/dL (8.7-10.4); Carbon Dioxide 18 mmol/L (20-31); Chloride 114 mmol/L (98-107); Glucose 119 mg/dL (74-106); Potassium 3.3 mmol/L (3.5-5.1); Sodium 145 mmol/L (136-145)
[2025-10-27 08:00] VITALS: PULSE 61; RESP 16; O2SAT 96
[2025-10-27 09:00] VITALS: BP 143/67; PULSE 61; RESP 16; TEMP 98.4; O2SAT 96
[2025-10-27 13:00] VITALS: BP 143/73; PULSE 71; RESP 16; TEMP 98.2; O2SAT 71; O2SAT 95
--- NOTE | 2025-10-27 13:29 | DVHDS2 ---
Discharge Summary Date of Admission Oct 24, 2025 at 04:08 Date of Discharge: Oct 27, 2025 Labs/Diagnostic Data: Laboratory Results Test 10/27/25 05:55 10/26/25 05:56 10/25/25 05:07 10/24/25 03:27 Sodium Level 145 mmol/L (136-145) Potassium Level 3.3 mmol/L (3.5-5.1) Chloride Level 114 mmol/L (98-107) Carbon Dioxide Level 18 mmol/L (20-31) Anion Gap 13 (5-15) Blood Urea Nitrogen 39 mg/dL (9-23) Creatinine 1.41 mg/dL (0.700-1.30) Glomerular Filtration Rate Calc 53 mL/min (>90) BUN/Creatinine Ratio 27.7 (10.0-20.0) Serum Glucose 119 mg/dL (74-106) Calcium Level 8.5 mg/dL (8.7-10.4) POC Glucose 121 mg/dl (70-106) White Blood Count 11.1 10^3/uL (4.4-10.8) Red Blood Count 3.58 10^6/uL (4.5-5.90) Hemoglobin 9.9 g/dL (13.5-17.5) Hematocrit 29.3 % (41.0-53.0) Mean Corpuscular Volume 81.6 fL (80.0-100.0) Mean Corpuscular Hemoglobin 27.6 pg (28.0-32.0) Mean Corpuscular Hemoglobin Concent 33.8 g/dL (32.0-36.0) Red Cell Distribution Width 17.1 % (11.8-14.3) Platelet Count 96 10^3/uL (140-450) Mean Platelet Volume 8.8 fL (6.9-10.8) Neutrophils (%) (Auto) % (37.0-80.0) Lymphocytes (%) (Auto) % (10.0-50.0) Monocytes (%) (Auto) % (0.0-12.0) Basophils (%) (Auto) % (0.0-2.0) Neutrophils # (Auto) 10 ^3/uL (1.6-8.6) Lymphocytes # (Auto) 10 ^3/uL (0.4-5.4) Monocytes # (Auto) 10 ^3/uL (0-1.3) Differential Total Cells Counted 100.0 (100) Neutrophils % (Manual) 64 (37.0-80.0) Band Neutrophils % (Manual) 10 Lymphocytes % (Manual) 19 (10.0-50.0) Monocytes % (Manual) 4 (0-12) Eosinophils % (Manual) 0 (0-7) Basophils % (Manual) 0 (0.0-2.0) Metamyelocytes % (manual) 0 Myelocytes % (Manual) 1 Promyelocytes % (Manual) 2 Blast Cells % (Manual) 0 Reactive Lymphocytes 0 Platelet Estimate Decreased Urine Color Light-orange (Yellow) Urine Clarity Turbid (Clear) Urine pH 5.5 (5.0-9.0) Urine Specific [place] 1.018 (1.001-1.035) Urine Protein 2+ (Negative) Urine Ketones Negative (Negative) Urine Blood 2+ /uL (Negative) Urine Nitrite Negative (Negative) Urine Bilirubin Negative (Negative) Urine Urobilinogen Normal mg/dL (Negative) Urine Leukocyte Esterase 3+ /uL (Negative) Urine RBC 16 /hpf (0 - 3) Urine WBC Clumps Present /hpf (None Seen) Urine Microscopic WBC 355 /HPF (0-3) Urine Squamous Epithelial Cells Few /hpf (<5) Urine Bacteria Many /hpf (None Seen) Urine Hyaline Casts Few /lpf (0 - 2) Urine Mucus Few (None Seen) Urine Glucose Normal mg/dL (Normal) Test 10/24/25 01:38 Anisocytosis (manual) Lactic Acid Level 1.3 mmol/L (0.4-2.0) Total Bilirubin 0.6 mg/dL (0.2-1.0) Aspartate Amino Transferase (AST) 28 U/L (13-40) Alanine Aminotransferase (ALT) < 9 U/L (7-40) Alkaline Phosphatase 161 U/L (46-116) Total Protein 5.8 g/dL (5.7-8.2) Albumin 3.1 g/dL (3.2-4.8) Other Laboratory Tests 10/27/25 05:55 10/25/25 05:07 Brief Hx & Hospital Course: 70-year-old male presents for evaluation of generalized weakness. Patient is a resident at [facility]. Patient was noted to be progressively weaker with a fever. Patient was recently discharged after being admitted for low hemoglobin levels. 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 Patient is bed ridden. During hospital stay back to baseline, Na high to 155 and got better with flushes CT head negative treated for UTI and improved Condition at Discharge: Good Final Diagnosis/Problems List hypernatremia acute metabolic encephalopathy due to electrolyte abnormalities Discharge Disposition: [facility] Facility Discharge Instruct/Medications Diet: Regular Activity: No Restrictions, As Tolerated Follow Up/Referral: PCP in 7 days Medications: same home medications Scheduled Amlodipine Besylate (Amlodipine Besylate), 1 TAB PO DAILY, (Reported) Ascorbic Acid (Vitamin C 500 mg), 1 TAB PO BID, (Reported) Atorvastatin Calcium (Atorvastatin Calcium), 1 TAB PO DAILY, (Reported) Clopidogrel Bisulfate (Clopidogrel), 1 TAB PO DAILY, (Reported) Cranberry Extract (Cranberry), 450 MG PO BID, (Reported) Folic Acid (Folic Acid), 1 TAB PO DAILY, (Reported) Lactobacillus (Probiotic Acidophilus), 1 CAP PO BID, (Reported) Memantine Hydrochloride (Memantine HCl), 1 TAB PO BID, (Reported) Scheduled PRN Zolpidem Tartrate (Ambien), 10 MG PO HSPRN PRN for FOR INSOMNIA, (Reported) Miscellaneous Medications Potassium Chloride (Potassium Chloride Cr), 20 MEQ PO, (Reported) Vitamin E (E1000), Unknown Dose PO, (Reported) Zinc Sulfate (Zinc Sulfate), 220 MG PO, (Reported) Discharge Statement: "Patient was advised to return to the ER or call 911 if any headaches, dizziness, shortness of breath, chest pain, abdominal pain, bleeding, fevers, or worsening of medical condition. Patient was counseled about treatment plan, medications, possible side effects, patientverbalized understanding. All questions were answered to the best of my ability. This discharge took greater then 30 minutes in planning, reviewing documentation, counseling the patient, and discussing with other team members." ASSESSMENT ASSESSMENT Assessment hypernatremia acute metabolic encephalopathy due to electrolyte abnormalities Date of Service: Oct 27, 2025 Billing Provider: PIPO LOPEZ MD Common Visit Codes: [id number] DISCH DAY >30min PIPO LOPEZ MD Oct 27, 2025 13:28
[2025-10-27 17:00] VITALS: BP 123/57; PULSE 86; RESP 16; TEMP 98.5; O2SAT 100
== END 2025-10-27 19:40 | DRG 70 ==
LOC: ER 00:17 → EDBD 00:17 → OVERFLOW 04:08 → ER 04:09 → CENTRAL 21:26
PROVIDERS: ADMIT Hospitalist; ATTEND Hospitalist
PROC: 30233N1 Transfusion of Nonautologous Red Blood Cells into Peripheral Vein, Percutaneous Approach (ICD-10-PCS; principal; 2025-10-24)
DX: G93.41 Metabolic encephalopathy (principal); R65.11 Systemic inflammatory response syndrome (SIRS) of non-infectious origin with acute organ dysfunction; E87.0 Hyperosmolality and hypernatremia; B95.2 Enterococcus as the cause of diseases classified elsewhere; N17.9 Acute kidney failure, unspecified; N39.0 Urinary tract infection, site not specified; D46.9 Myelodysplastic syndrome, unspecified; I10 Essential (primary) hypertension; J44.9 Chronic obstructive pulmonary disease, unspecified; F03.90 Unspecified dementia, unspecified severity, without behavioral disturbance, psychotic disturbance, mood disturbance, and anxiety; I71.40 Abdominal aortic aneurysm, without rupture, unspecified; E78.5 Hyperlipidemia, unspecified; I25.10 Atherosclerotic heart disease of native coronary artery without angina pectoris; Z88.5 Allergy status to narcotic agent; I25.2 Old myocardial infarction; Z86.73 Personal history of transient ischemic attack (TIA), and cerebral infarction without residual deficits; Z74.01 Bed confinement status
CPT/HCPCS: 36415; 36430; 70450; 71045; 80048; 80053; 81001; 82962; 83605; 85007; 85014; 85018; 85027; 86850; 86900; 86901; 86920; 87040; 87081; 87086; 87088; 87186; 96365; 97163; G0378